=== PATIENT | male | born 1955 | race Caucasian/White ===

== ENCOUNTER 2018-10-07 22:37 | Inpatient (IN) | payer MEDICARE, OTHER ==
[~2018-10-07] VITALS: Ht 170.2 cm; Wt 83.9 kg
[~2018-10-07 22:37] MED LIST: ACET-2619 GT; AMLO5TAB7 GT; ARTOP OP; ASCO500C19 GT; ATRN INH; BISA10SU2 PR; DOXA2TAB32 GT; ENAL20TA19 GT; FERR-18 GT; GLYC2TAB GT; METF500T GT; MULT-153 GT; MVII GT; NA P133E PR; PHEN100C80 GT; REGULAR INSULIN SUBQ; SIMV20TA6 GT; [UNRECOGNIZED DRUG - CODE] GT; [UNRECOGNIZED DRUG - CODE] GT; [UNRECOGNIZED DRUG - CODE] GT
--- NOTE | 2018-10-07 22:37 | NUR ---
BIBA TO ER BED 10
--- NOTE | 2018-10-07 22:37 | NUR ---
Patient being evaluated by physician at bedside.
[2018-10-07] MEDS ORDERED: NACL 0.9% 1,000 ML IV ONE ×2 (22:48)
[2018-10-07] MEDS ORDERED: PIPERACILLIN/TAZOBACTAM 3.375 GM in DEXTROSE 5% 50 ML IV ONE (22:50)
--- NOTE | 2018-10-07 22:50 | NUR ---
RESPONDED TO ER CALL AT 2237 STAT TO BED 10 PT VOMITED AND O2 SATS WERE LOW. PLACED PT ON NONREBREATHER 15LPM. [place] POSITION. SATS AT 100%, PULSE AT 135, RESPIRATIONS AT 26, BREATH SOUNDS COARSE AT UPPER AIRWAY. GOOD EQUAL BILATERAL CHEST RISE. X-RAY HAS BEEN ORDERED. WILL CONTINUE TO MONITOR.
[2018-10-07] MEDS ORDERED: PIPERACILLIN/TAZOBACTAM 3.375 GM VIAL IV ONE (22:53)
[2018-10-07] MEDS ORDERED: ACETAMINOPHEN 650 MG SUPP RC ONE (22:54)
[2018-10-07 22:56] VITALS: BP 74/23
--- NOTE | 2018-10-07 22:56 | NUR ---
63/M BIBA FROM [facility] FOR POSSIBLE SEPTIC SHOCK. PER EMS, PT WAS FOUND WITH ALOC FROM BASELINE AND TACHYCARDIC 45 MINS PRIOR. PT ARRIVES WITH ALOC, GCS 8, RR EVEN AND MODERATELY LABORED, MODERATELY DIAPHORETIC. RT AT BEDSIDE, PT PLACED ON O2 15L NONREBREATHER, SPO2 100%. BP 74/33, HR 133. LUNG SOUNDS CLEAR BL. BS ACTIVE X4, ABD SOFT AND ROUND. PT PLACED ON MONITOR. ER MD AT BEDSIDE.
--- NOTE | 2018-10-07 23:01 | NUR ---
NOTED LARGE POSSIBLE STONE ON URINARY MEATUS, SUCCESSFUL REMOVAL OF STONE WITH FORCEPS, SENT TO LAB. 16 FR MCCALLUM CATH INSERTED SUCCESSFULLY.
[2018-10-07 23:02] LABS: BASOPHILS % (AUTO) 0.1 % (0.0-2.0); EOSINOPHILS % (AUTO) 0.2 % (0.0-4.0); HEMATOCRIT 36.7 % (36-52); HEMOGLOBIN 11.6 g/dL (12.0-18.0); LYMPHOCYTES # (AUTO) 0.6 K/uL (2.0-11.5); LYMPHOCYTES % (AUTO) 20.9 % (20.5-51.1); MEAN CORPUSCULAR HEMOGLOBIN 28 pg (27-31); MEAN CORPUSCULAR HGB CONC 32 g/dL (33-37); MEAN CORPUSCULAR VOLUME 88.9 fL (80-94); MONOCYTES % (AUTO) 0.8 % (1.7-9.3); NEUTROPHILS # (AUTO) 2.3 K/uL (1.8-7.7); PLATELET COUNT (AUTO) 261 K/uL (140-450); RED BLOOD CELL COUNT(AUTO) 4.13 MIL/uL (4.20-6.10); RED CELL DISTRIBUTION WIDTH 17.5 % (11.6-13.7)
[2018-10-07] MEDS ORDERED: VANCOMYCIN 1,000 MG in DEXTROSE 5% 250 ML IV ONE (23:05)
[2018-10-07] MEDS ORDERED: NACL 0.9% 250 ML IV ONE (23:05)
--- NOTE | 2018-10-07 23:06 | NUR ---
PT RESPONSIVE AT THIS TIME, MOANING AND GROANING.
--- NOTE | 2018-10-07 23:10 | NUR ---
PERSISTENT HYPOTENSION DESPITE FLUID BOLUS, ER MD MADE AWARE
[2018-10-07 23:14] LABS: ANION GAP 19.6 (8-16); CARBON DIOXIDE 23.9 mmol/L (21-32); CREATININE 1.8 mg/dL (0.7-1.3); POTASSIUM 4.5 mmol/L (3.5-5.1)
[2018-10-07] MEDS ORDERED: VANCOMYCIN 1,000 MG VIAL ONE (23:15)
[2018-10-07 23:19] LABS: ALBUMIN 2.4 g/dL (3.4-5.0); TOTAL BILIRUBIN 0.3 mg/dL (0.0-1.0)
[2018-10-07 23:20] LABS: PROTHROMBIN TIME 10.5 secs (10.8-13.4)
[2018-10-07] MEDS ORDERED: NOREPINEPHRINE 4 MG/4 ML VIAL IV ONE (23:20)
--- NOTE | 2018-10-07 23:20 | NUR ---
ER MD AT BEDSIDE FOR CENTRAL LINE INSERTION. ER MD SUCCESSFULLY ABLE TO INSERT ON R FEMORAL, 3X LUMEN. LEVOPHED DRIP STARTED ORDERED
[2018-10-07] MEDS ORDERED: LISI2.5T12 GT (23:36)
[2018-10-07] MEDS ORDERED: FURO-572 GT (23:36)
[2018-10-07] MEDS ORDERED: COL100L GT (23:36)
[2018-10-07] MEDS ORDERED: ROB1 GT (23:36)
[2018-10-07] MEDS ORDERED: ATOR40TA GT (23:36)
[2018-10-07] MEDS ORDERED: PHEN125S GT (23:36)
[2018-10-07] MEDS ORDERED: ASPI81CT89 GT (23:36)
[2018-10-07] MEDS ORDERED: CARV3.12 GT (23:36)
[2018-10-07] MEDS ORDERED: ALBU0.0912 IH (23:36)
[2018-10-07] MEDS ORDERED: [UNRECOGNIZED DRUG - CODE] GT (23:36)
[2018-10-07] MEDS ORDERED: CYAN250013 GT (23:36)
[2018-10-08] VITALS (87 sets, daily range): BP systolic 51–137; BP diastolic 23–85
--- NOTE | 2018-10-08 00:25 | NUR ---
500ML BOLUS NS STARTED PER MD
--- NOTE | 2018-10-08 00:25 | NUR ---
PT BP 80/37, HR 114; ER MD MADE AWARE. LEVOPHED DRIP TITRATED TO 10 MCG/MIN. WILL MONITOR.
[2018-10-08 00:32] LABS: APPEARANCE,URINE CLOUDY (CLEAR); BILIRUBIN,URINE NEGATIVE (NEGATIVE); BLOOD, URINE LARGE (NEGATIVE); COLOR,URINE YELLOW (YELLOW); LEUKOCYTE ESTERASE ,URINE 4+ (NEGATIVE); NITRITE, URINE NEGATIVE (NEGATIVE); PH,URINE 7.5 (5.0-9.0); UGLUCOSE NEGATIVE (NEGATIVE)
[2018-10-08 00:33] LABS: RBC,URINE TOO NUMEROUS TO COUN /HPF (0-5); WBC,URINE TOO MANY TO COUNT /HPF (0-5)
--- NOTE | 2018-10-08 00:43 | NUR ---
PT BP 73/35, HR 109; ER MD MADE AWARE. LEVOPHED DRIP TITRATED TO 13 MCG/MIN. WILL MONITOR.
--- NOTE | 2018-10-08 01:05 | NUR ---
PERSISTENT HYPOTENSION, VS NOTED, ER MD MADE AWARE. LEVOPHED DRIP TITRATED TO 15 MCG/MIN. WILL MONITOR.
[2018-10-08] MEDS ORDERED: LORazepam 2 MG/ML VIAL IM/IVP PRN (01:10)
[2018-10-08] MEDS ORDERED: DOCUSATE SODIUM 100 MG GELCAP PO PRN (01:10)
[2018-10-08] MEDS ORDERED: ACETAMINOPHEN 325 MG TAB PO PRN (01:10)
[2018-10-08] MEDS ORDERED: ZOLPIDEM 5 MG TAB PO PRN (01:10)
[2018-10-08] MEDS ORDERED: HYDROcodone/APAP 5/325 MG 1 TAB TAB PO PRN (01:10)
[2018-10-08] MEDS ORDERED: ONDANSETRON 4 MG/2 ML VIAL IM/IVP PRN (01:10)
[2018-10-08] MEDS ORDERED: MORPHINE SULFATE 4 MG/ML SYR IVP PRN (01:10)
[2018-10-08] MEDS ORDERED: VANCOMYCIN PER PHARMACY MC PRN (01:15)
[2018-10-08] MEDS ORDERED: NACL 0.9% 500 ML IV ONE (01:30)
[2018-10-08] MEDS ORDERED: MECLIZINE 25 MG TAB PO PRN (01:30)
[2018-10-08] MEDS: NOREPINEPHRINE 8 MG in DEXTROSE 5% 250 ML IV PRN ×4 (01:33→14:22)
[2018-10-08 01:45] LABS: BARBITURATE, URINE NEG. ng/ml (NEG <=200); BENZODIAZEPINE, URINE NEG. ng/mL (NEG <=200); CANNABINOID, URINE NEG. ng/mL (NEG <=50); COCAINE, URINE NEG. ng/mL (NEG <=300); OPIATE, URINE NEG. ng/mL (NEG <=2000); PHENCYCLIDINE SCREEN,URINE NEG. ng/mL (NEG <=25)
[2018-10-08] MEDS ORDERED: ALBUTEROL SULFATE/IPRATROPIU 3 ML SOL IH PRN (01:45)
[2018-10-08 01:58] LABS: CHOL/HDL RATIO 2.1 (1-4.5); MAGNESIUM 1.8 mg/dL (1.8-2.4); PHOSPHORUS 3.5 mg/dL (2.5-4.9); THYROID STIMULATING HORMONE 5.38 uIU/mL (0.34-3.74)
--- NOTE | 2018-10-08 02:00 | NUR ---
ER MD AND RT AT BEDSIDE FOR ABG. VS NOTED, PT REMAINS HYPOTENSIVE DESPITE FLUID BOLUS, LEVOPHED TITRATED TO 20MCG/MIN.
[2018-10-08] MEDS ORDERED: DEXTROSE 50% 50 ML SYR IVP PRN (02:15)
--- NOTE | 2018-10-08 02:23 | NUR ---
Patient will be admitted to care of DR. BAHEAN. Admited to ICU. Will go to room 2. Belongings list completed. Report to WENDIE FUENTES.
--- NOTE | 2018-10-08 02:30 | NUR ---
PT ARRIVED IN THE UNIT AT 0220 VIA GURNEY. PT EYES ARE OPEN. FLACC 0. SR TO ST ON MONITOR. RESPONDS TO NAME AND ALSO TO PAIN. AFEBRILE. LUNG SOUNDS CLEAR. PT ON OXYGEN AT 2L/MIN VIA NC. S1+S2 HEARD. PULSES ARE PALPABLE IN ALL EXTREMITIES. RECEIVED PT ON LEVOPHED AT 20MCG. ABDOMEN ROUND, SOFT AND NONDISTENDED. BS ACTIVE. PT HAS GTUBE IN PLACE. PT HAS RIGHT FEMORAL CENTRAL LINE. THERE WAS STILL BLEEDING NOTED ON SITE AND MD AWARE. PT ALSO HAS LEFT WRIST PERIPHERAL IV ACCESS. MCCALLUM CATHETER IN PLACE AND DRAINING CLEAR, YELLOW URINE. WILL CONTINUE TO MONITOR BLOOD PRESSURE AND TITRATE INDICATED. MRSA SPECIMEN COLLECTED.
[2018-10-08] MEDS: NACL 0.9% 1,000 ML IV SCH ×4 (03:16→17:39)
[2018-10-08] MEDS ORDERED: NOREPINEPHRINE 4 MG/4 ML VIAL IV ONE (04:17)
--- NOTE | 2018-10-08 04:50 | NUR ---
DR. CHACON IN THE UNIT AND AWARE OF CURRENT STATUS OF PT. BP STILL LOW AT THIS TIME AND STILL MONITORING. PT AROUSABLE TO NAME AND PAIN. NO OTHER CHANGE IN CONDITION AT THIS TIME.
[2018-10-08 04:53] LABS: HEMATOCRIT 29.1 % (36-52); HEMOGLOBIN 9.4 g/dL (12.0-18.0); MEAN CORPUSCULAR HEMOGLOBIN 28 pg (27-31); MEAN CORPUSCULAR HGB CONC 32 g/dL (33-37); MEAN CORPUSCULAR VOLUME 87.8 fL (80-94); PLATELET COUNT (AUTO) 169 K/uL (140-450); RED BLOOD CELL COUNT(AUTO) 3.31 MIL/uL (4.20-6.10); RED CELL DISTRIBUTION WIDTH 16.8 % (11.6-13.7); WHITE BLOOD COUNT (AUTO) 16.1 K/uL (4.8-10.8)
[2018-10-08 05:10] LABS: ANION GAP 14.9 (8-16); CREATININE 1.6 mg/dL (0.7-1.3)
[2018-10-08 05:13] LABS: MAGNESIUM 1.5 mg/dL (1.8-2.4); PHOSPHORUS 2.6 mg/dL (2.5-4.9)
--- NOTE | 2018-10-08 05:21 | NUR ---
INFORMED DR. CHACON OF THE CURRENT BP READING AND WILL FOLLOW-UP WITH ANY NEW ORDER.
--- NOTE | 2018-10-08 05:25 | NUR ---
CALLED PT'S , IZA FAITH, INFORMED HER THAT PT IS IN THE ICU. DR. CHACON CURRENTLY SPEAKING WITH THE PT'S .
[2018-10-08] MEDS ORDERED: PIPERACILLIN/TAZOBACTAM 3.375 GM VIAL IV ONE (05:32)
[2018-10-08] MEDS ORDERED: NACL 0.9% 1,000 ML IV ONE (05:35)
[2018-10-08 05:49] LABS: POTASSIUM 2.9 mmol/L (3.5-5.1)
[2018-10-08] MEDS ORDERED: POTASSIUM CHLORIDE 40 MEQ, LIDOCAINE MPF 1% - 5 mL VIAL 25 MG in NACL 0.9% 250 ML IV SCH ×2 (05:50→08:00)
[2018-10-08] MEDS ORDERED: PIPERACILLIN/TAZOBACTAM 2.25 GM in DEXTROSE 5% 50 ML IV SCH (06:00)
[2018-10-08] MEDS ORDERED: VASOPRESSIN 20 UNITS/ML VIAL ONE (06:13)
[2018-10-08] MEDS: PIPER/TAZO 3.375GM/D5W PREMIX 50 ML IV SCH ×3 (06:15→17:06)
[2018-10-08] MEDS: VASOPRESSIN 20 UNITS in NACL 0.9% 250 ML IV SCH ×3 (06:15→22:58)
--- NOTE | 2018-10-08 06:20 | NUR ---
DR. CHAVES AT BEDSIDE WITH DR. GÓMEZ TO SEE PT.
[2018-10-08 06:33] LABS: LYMPHOCYTES % (MANUAL) 2 % (20-46); METAMYELOCYTES % 2 % (0-0); MONOCYTES % (MANUAL) 3 % (5-12)
[2018-10-08] MEDS: ALBUTEROL SULFATE/IPRATROPIU 3 ML SOL IH SCH ×3 (06:52→19:18)
--- NOTE | 2018-10-08 07:26 | NUR ---
REPORT GIVEN TO MORNING RN, CHANCE, FOR CONTINUITY OF CARE. BP STILL NOT STABLE AT THIS TIME.
--- NOTE | 2018-10-08 07:27 | NUR ---
RECEIVED PT REPORT FROM SCRAP CHARGER RN AT BEDSIDE, PT IS AWAKE WITH EYES OPEN, APHASIC, NOT ABLE TO FOLLOW COMMANDS, VSS, FLACC 0. NO S/S OF DISTRESS, CLEAR LUNG SOUNDS PEGGY. ON OXYGEN AT 2L/MIN VIA NC, O2 SAT 99%, ST ON WOMEN NURSE, SOFT ABDOMEN WITH ACTIVE BOWEL SOUNDS, GT IN PLACE, PATIENT WITH 0 RESIDUAL, NPO EXCEPT MEDS AT THIS TIME, INCONTINENT, MCCALLUM CATHETER IN PLACE WITH CLEAR YELLOW URINE DRAINING VIA GRAVITY, SKIN IS COOL, DRY IN TOUCH, NO OPEN WOUND NOTED, SEVERE WEAKNESS NOTED, UNABLE TO MOVE ALL EXTREMITIES, CENTRAL LINE TO RIGHT FEMORAL, TLC, PATIENT, RUNNING LEVOPHED AT 30MCG/MIN, VASOPRESSIN AT 0.03 UNITS/MIN, AND NS AT 125ML/HR. IV SITE TO LEFT WRIST 20GA, PATENT AND SL. HOB ELEVATED 30 DEGREES, POSITION CHANGED FOR OFF LOAD PRESSURE, SAFETY MEASURE IN PLACE, WILL CONTINUE TO MONITOR. Addendum: 10/08/18 at 1013 by Oswald Salas RN RHONCHI LUNG SOUNDS, NOT CLEAR.
[2018-10-08] MEDS: BLOOD GLUCOSE MONITORING 1 DEV DEV FS SCH ×4 (07:46→21:00)
[2018-10-08] MEDS: INSULIN LISPRO SLIDING SCALE 100 UNITS/ML VIAL SUBQ PRN ×4 (07:52→22:00)
[2018-10-08] MEDS ORDERED: CARVEDILOL 3.125 MG TAB GT SCH (08:00)
[2018-10-08] MEDS: MULTIVITAMIN/MINERALS 15 ML UDBTL GT SCH (08:26)
[2018-10-08] MEDS: LACTOBACILLUS RHAMNOSUS GG 1 EACH CAP PO SCH (08:27)
[2018-10-08] MEDS: PANTOPRAZOLE 40 MG INJ VIAL IVP SCH ×2 (08:27→21:31)
[2018-10-08] MEDS: PHENYTOIN 100 MG/4 ML UDC GT SCH ×2 (08:27→21:26)
[2018-10-08] MEDS: ASCORBIC ACID 500 MG/5 ML ORASYR GT SCH (08:27)
[2018-10-08] MEDS: FERROUS SULFATE 300 MG/5 ML UDC GT SCH (08:27)
[2018-10-08] MEDS: CHOLECALCIFEROL 1,000 IU TAB GT SCH (08:27)
--- NOTE | 2018-10-08 08:27 | NUR ---
PATIENT HAS BEEN SCREENED AND CATEGORIZED HIGH NUTRITION RISK. PATIENT WILL BE SEEN WITHIN 1-2 DAYS OF ADMISSION. 10/08/18-10/09/[address]
[2018-10-08] MEDS: CYANOCOBALAMIN 1,000 MCG TAB GT SCH (08:28)
[2018-10-08] MEDS: GLYCOPYRROLATE 1 MG TAB GT SCH ×3 (08:28→17:06)
--- NOTE | 2018-10-08 08:30 | NUR ---
PT'S BP 83/34, MAX WITH LEVOPHED AND VASOPRESSIN AT THIS TIME, DR. CHAVES MADE AWARE.
--- NOTE | 2018-10-08 08:39 | NUR ---
lasix and lisinopril held at this time per dr. rios due to pt's BP low.
--- NOTE | 2018-10-08 08:45 | NUR ---
P.T. NOTES HOLD P.T. EVAL AT THIS TIME PER 2 RN'S (CHRIS) DUE TO PATIENT IS NOT MEDICALLY STABLE AT THIS TIME. WE'LL FOLLOW UP WHEN PATIENT IS MORE APPROPRIATE FOR P.T. SERVICES.
[2018-10-08] MEDS ORDERED: NACL 0.9% 500 ML IV SCH ×2 (08:50→09:25)
[2018-10-08] MEDS ORDERED: NON-FORMULARY ITEM (Ascorbic Acid (Vitamin C) 500 MG) GT SCH (09:00)
[2018-10-08] MEDS ORDERED: ASPIRIN 81 MG TAB.CHEW GT SCH (09:00)
[2018-10-08] MEDS ORDERED: [UNRECOGNIZED DRUG - OTHER] GT SCH (09:00)
[2018-10-08] MEDS ORDERED: LISINOPRIL 5 MG TAB GT SCH (09:00)
[2018-10-08] MEDS ORDERED: FUROSEMIDE 20 MG TAB GT SCH (09:00)
[2018-10-08] MEDS ORDERED: MULTIVITAMIN GT SCH (09:00)
[2018-10-08] MEDS ORDERED: FERROUS SULFATE GT SCH (09:00)
[2018-10-08] MEDS ORDERED: CYANOCOBALAMIN 1000 MCG GT SCH (09:00)
[2018-10-08] MEDS ORDERED: PHENYTOIN GT SCH (09:00)
[2018-10-08] MEDS ORDERED: MINERALS GT SCH (09:00)
[2018-10-08] MEDS ORDERED: CHOLECALCIFEROL 1000 UNIT GT SCH (09:00)
[2018-10-08] MEDS ORDERED: MAG SULF 2000 MG/WATER PREMIX 50 ML IV ONE (09:20)
--- NOTE | 2018-10-08 10:00 | NUR ---
BP IS STILL LOW, BOLUS GIVEN ORDERED, PT IS OPEN EYES, NUMBING WORDS, NO S/S OF DISTRESS, POSITION CHANGED FOR OFF LOAD PRESSURE.
--- NOTE | 2018-10-08 10:45 | NUR ---
DR. LUJAN CAME IN TO SEE PT AT BEDSIDE, WILL FOLLOW UP WITH NEW ORDERS.
[2018-10-08] MEDS: MAGNESIUM SULFATE 1GM in DEXTROSE 5% 100 ML PREMIX IV SCH ×2 (11:01→11:58)
[2018-10-08] MEDS ORDERED: levETIRAcetam 1,000 MG in NACL 0.9% 100 ML IV ONE (11:15)
--- NOTE | 2018-10-08 11:15 | NUR ---
ULTRASOUND AT BEDSIDE.
[2018-10-08] MEDS ORDERED: PHENYLEPHRINE 10 MG in NACL 0.9% 250 ML IV PRN (11:35)
[2018-10-08] MEDS: MIDODRINE 5 MG TAB PEG SCH ×3 (12:06→23:56)
--- NOTE | 2018-10-08 12:18 | NUR ---
ECHO DONE AT BEDSIDE.
[2018-10-08] MEDS ORDERED: HYDROCORTISONE NA SUCC 100 MG/2 ML VIAL IV SCH ×2 (13:00→20:40)
--- NOTE | 2018-10-08 13:54 | NUR ---
PROVIDED DR. CHAVES WITH [employer] SCHEDULE CHECKER PHONE, SCHEDULE CHECKER NAME IS JENNIFER #[id number]. DR. CHAVES IS SPEAKING WITH PATIENT'S FAMILY
--- NOTE | 2018-10-08 13:55 | NUR ---
STARTED TUBE FEEDING WITH VITAL AF 1.2F AT 15ML/HR, INCREASE 10ML Q4HR IF TOLERATED WELL TO REACH THE GOAL 75ML/HR PER DR. CHAVEZ.
--- NOTE | 2018-10-08 14:00 | NUR ---
DR. SINGER SPOKE TO PT'S AT BEDSIDE, PT'S STILL WANT PT ON FULL CODE AT THIS TIME.
[2018-10-08] MEDS: PHENYLEPHRINE 40 MG in NACL 0.9% 250 ML IV PRN ×3 (14:28→23:52)
--- NOTE | 2018-10-08 14:34 | NUR ---
10/08/18 RD INITIAL ASSESSMENT COMPLETED PLEASE REFER TO NUTRITION ASSESSMENT UNDER CARE ACTIVITY FOR ESTIMATED NUTRITIONAL NEEDS. 1. RECOMMEND CONTINUE NPO DIET, UNTIL MEDICALLY APPROPRIATE TO BEGIN NUTRITION 2. WHEN/IF PT MEDICALLY STABLE TO BEGIN NUTRITION, CONSIDER ADVANCE DIET TOLERATE TO VITAL AF 1.2 @ 75 ML/HR STARTING AT 15 ML AND ADVANCING 20ML/HR Q3H - THIS WILL PROVIDE 1800ML, 2100 KCAL, 135 G PRO, 1460 ML WATER. THIS WILL MEET 100% OF KCAL/PROTEIN NEEDS. 3. RECOMMEND FREE WATER FLUSH 160ML/Q6H 4. RD TO FOLLOW-UP 2-3 DAYS, HIGH RISK TERRANCE TEE RD
--- NOTE | 2018-10-08 14:36 | NUR ---
Pop[employer] Vendor Note: Avelino Gomez from [facility] , patient is on a 7 day bed hold and is one their manager terminal patients (shelter care). I met with patient's Olinda at bedside. Olinda speaks Ivorian. Per Olinda, she would like patient to return to [facility] upon discharge. She stated patient has been living at [facility] for about 6 years. She reported she has had good communication with attending MD and nursing staff at our hospital. Olinda stated she does not have any questions or concerns at this time.
[2018-10-08 14:46] LABS: ANION GAP 16.2 (8-16); CARBON DIOXIDE 19.9 mmol/L (21-32); CREATININE 1.5 mg/dL (0.7-1.3); POTASSIUM 4.1 mmol/L (3.5-5.1)
--- NOTE | 2018-10-08 15:20 | NUR ---
CRITICAL LAB REPORT LACTIC ACID 6.3 INCREASED, REPORT TO DR. AGOSTO, DR. AGOSTO CAME IN TO SEE PT, AND SPOKE TO PHARMACY IT IS OK TO GIVE VANCOMYCIN NOW FOR 1800 DOSE.
--- NOTE | 2018-10-08 15:42 | NUR ---
RECEIVED A CALL THIS MORNING FROM GARRICK FROM [facility]. SHE IS THE CM. HER PHONE IS [phone]. FAX IS [phone]. THEY WILL CHECK TO SEE IF THIS PATIENT CAN BE TRANSFERED TO [facility].
--- NOTE | 2018-10-08 17:33 | NUR ---
PT IS CONGESTED, RALES LUNG SOUNDS PEGGY, DR. AGOSTO NOTIFIED, HE WILL COME TO SEE PT.
--- NOTE | 2018-10-08 17:38 | NUR ---
LAB CALLED BL. CULTURE PRELIMINARY FOUND GRAM NEGATIVE WEI. DR. ELRMA NOTIFIED. NO ORDER CHANGED.
--- NOTE | 2018-10-08 17:40 | NUR ---
DR. AGOSTO CAME IN, ASSESSED THE PT, WILL FOLLOW UP WITH ORDERS.
[2018-10-08] MEDS ORDERED: VANCOMYCIN HCL 750 MG in DEXTROSE 5% 250 ML IV SCH (18:00)
--- NOTE | 2018-10-08 18:00 | NUR ---
PT IS VERY CONGESTED, LABORED BREATHING, ABG RESULT CAME BACK DR. CHACON. MADE AWARE.
[2018-10-08] MEDS ORDERED: ETOMIDATE 20 MG/10 ML VIAL IVP SCH ×2 (18:38→21:00)
--- NOTE | 2018-10-08 18:40 | NUR ---
ER CAME IN, DR. CHACON AT BEDSIDE, PUT PT ON BIPAP WITH FIO2 50, I/E 16/8, R 12 AT THIS TIME. O2 SAT 100%.
--- NOTE | 2018-10-08 18:51 | NUR ---
1840 PLACED PATIENT ON BIPAP IPAP18 EPAP 6 RR 12 FIO2 50%. PT WAS IN RESPIRATORY DISTRESS. ABG PENDING
[2018-10-08] MEDS: NOREPINEPHRINE 16 MG in DEXTROSE 5% 250 ML IV PRN (19:07)
--- NOTE | 2018-10-08 19:22 | NUR ---
REPORT GIVEN TO DATA WAREHOUSE SPECIALIST NURSE FOR CONTINUE OF CARE.
[2018-10-08] MEDS ORDERED: AMIKACIN PER PHARMACY MC PRN (19:25)
--- NOTE | 2018-10-08 19:30 | NUR ---
RECEIVED REPORT FROM DAY SHIFT FOR CONTINUITY OF CARE.
--- NOTE | 2018-10-08 19:35 | NUR ---
DR. SOLER AND RT @ BEDSIDE.
--- NOTE | 2018-10-08 19:40 | NUR ---
@ BEDSIDE, EXPLAINED PT GUARDED CONDITION TO AND SUGGESTED TO THAT THE PT WOULD NEED TO BE INTUBATED TONIGHT DUE TO HIS RESPIRATORY DISTRESS. AGREEABLE, PT APPEARS OBTUNDED AND IS UNWARE OF SURROUNDINGS @ THIS TIME. WILL CONTINUE TO OBSERVE.
[2018-10-08] MEDS ORDERED: EPINEPHrine 1:1000 1 MG in DEXTROSE 5% 250 ML IV SCH (19:45)
--- NOTE | 2018-10-08 19:45 | NUR ---
PT APPEARS AWAKE, EYES OPEN, PERRL+3 SLUGGISH REACTION. PT UNABLE TO MOVE L ARM AND BILATERAL LOWER EXTREMITIES., R ARM ABLE TO MOVE. PT UNABLE TO FOLLOW DIRECTIONS @ THIS TIME. PT ATTACHED TO BIPAP @ 50% FIO2. RHONCHI/DIMINISHED BREATH SOUNDS AUSCULTATED THROUGHOUT. NSR 80S NOTED. +1-2 NON PITTING GENERALIZED EDEMA NOTED, PT HYPOTENSIVE 80-90 SBP. ABD SOFT NON DISTENDED. PEG TUBE IN PLACE. AUSCULTATED FOR PLACEMENT, GT FEEDINGS RUNNING, PATENT. MCCALLUM CATH IN PLACE DARK CONCENTRATED URINE NOTED. LOW URINE OUTPUT FOR DAYSHIFT, DR SOLER AWARE. SKIN INTACT, BLANCHABLE REDNESS TO BUTTOCKS AREA NOTED. CENTRAL LINE R FEMORAL TRIPLE LUMEN IV NOTED, VASOPRESSIN @ 0.04 UNITS/MIN, LEVOPHED 30 MCG/MIN, NEOSYNEPHRINE @ 150 MCG/MIN, 0.9 NS 150 ML/HR. IV PATENT. WILL CONTINUE TO OBSERVE.
--- NOTE | 2018-10-08 19:55 | NUR ---
ER , DR TOBIN @ BEDSIDE. PT AND FAMILY EXPLAINED ABOUT UPCOMING INTUBATION. RTs @ BEDSIDE. RSI KIT @ BEDSIDE. 1954: ETOMADATE 20 MG IVP GIVEN. SUCCINYLCHOLINE 75 MG IVP GIVEN. PT DIFFICULT TO INTUBATE PER MD, HERLINDA REQUESTED AND GLIDESCOPE. PT OXYGENATING 98% SPO2, VIA BVM. HR 90 NSR, BP 98/62 RR 14. 2004: ETOMADATE 10 MG IVP GIVEN. MD INSERTED 7.0 MM ET TUBE 25CM @ LIP. RT PLACED PT ON MECH. VENT, SETTINGS PER MD ORDER. NO S/S OF ACUTE DISTRESS NOTED. PT TOLERATED PROCEDURE. STAT CXR ORDERED. PT REPOSITIONED, SUCTION @ BEDSIDE. WILL CONTINUE TO OBSERVE.
[2018-10-08] MEDS ORDERED: SUCCINYLCHOLINE CHLORIDE 200 MG/10 ML VIAL IVP SCH (20:00)
--- NOTE | 2018-10-08 20:15 | NUR ---
UPDATED DR LUJAN ABOUT PT HYPOTENSION WITH MAX 3 PRESSORS, EPI DRIP ORDERED. WANTED STAT SOLUCORTEF TO BE GIVEN. WILL CONTINUE TO MONITOR.
--- NOTE | 2018-10-08 20:38 | NUR ---
PT BITING ET TUBE, FACIAL GRIMACING NOTED. HR 106 BP 107/62 SPO2 96%. SUCTIONED PT THICK CREAMY SECRETION NOTED. PT GIVEN PRN MORPHINE FOR PAIN.
--- NOTE | 2018-10-08 20:40 | NUR ---
DR LUJAN @ BEDSIDE.
[2018-10-08] MEDS ORDERED: levETIRAcetam 1,000 MG in NACL 0.9% 100 ML IV SCH (21:00)
[2018-10-08] MEDS ORDERED: AMIKACIN 500 MG in DEXTROSE 5% 100 ML IV SCH (21:00)
--- NOTE | 2018-10-08 21:20 | NUR ---
CALLED AFTER HOURS PHARMACY AND SPOKE WITH OBEY REGARDING COMPATIBILITY OF MEDICATIONS. ACCORDING TO PHARMACISTS, OKAY TO RUN LEVOPHED AND EPINEPHRINE TOGETHER, AND THEN VASOPRESSIN AND NEOSYNEPHRINE.
[2018-10-08] MEDS: ATORVASTATIN 20 MG TAB GT SCH (21:26)
[2018-10-08] MEDS: DOCUSATE 100 MG/10 ML UDC GT SCH (21:26)
--- NOTE | 2018-10-08 21:50 | NUR ---
CALLED DR MCCAIN WITH LATEST ABG RESULTS, ORDERED TO INCREASE RR TO 18
[2018-10-08] MEDS ORDERED: MEROPENEM 1,000 MG in NACL 0.9% 100 ML IV SCH (22:00)
[2018-10-08] MEDS ORDERED: AMIKACIN 500 MG/2 ML VIAL IV ONE (22:03)
[2018-10-08] MEDS ORDERED: MEROPENEM 1,000 MG VIAL IV ONE (22:04)
[2018-10-08] MEDS ORDERED: SODIUM BICARBONATE 8.4% PFS 50 MEQ/50 ML SYR IVP ONE (22:56)
[2018-10-08] MEDS: SODIUM BICARBONATE IV SCH (23:10)
[2018-10-08] MEDS: DEXTROSE 5% IV SCH (23:10)
--- NOTE | 2018-10-08 23:40 | NUR ---
EPI DRIP STARTED, PT CONTINUES TO BE HYPOTENSIVE. MAP<65 DESPITE VASPORESSIN @ .04 UNITS/MIN, LEVOPHED 30 MCG/MIN, NEOSYNEPHRINE @ 150 MCG/MIN. WILL CONTINUE TO OBSERVE.
[2018-10-09] VITALS (100 sets, daily range): BP systolic 88–144; BP diastolic 42–96
--- NOTE | 2018-10-09 | NUR ---
VAP ORAL CARE DONE. PT TURNED AND REPOSITIONED. WILL CONTINUE TO OBSERVE.
--- NOTE | 2018-10-09 | NUR ---
DR SOLER MADE AWARE OF HGB 7.2 PLATELET 64, TO PUT ORDERS FOR TYPE/CROSSMATCH FOR X1 UNIT [facility]
--- NOTE | 2018-10-09 01:25 | NUR ---
NOTIFIED DR SOLER ABOUT DARK BROWN REDDISH SECRETIONS FROM ORAL AREA. ETT SUCTIONED, CLEAR SECRETIONS NOTED. WILL CONTINUE TO OBSERVE. PT AROUSABLE, MAP<65 BP 118/61 HR 83 100% SPO2 ON 50% FIO2, WILL CONTINUE TO OBSERVE.
[2018-10-09] MEDS: MORPHINE SULFATE 4 MG/ML SYR IVP PRN ×2 (02:00→21:48)
[2018-10-09] MEDS: PHENYLEPHRINE 40 MG in NACL 0.9% 250 ML IV PRN ×2 (04:07→10:38)
[2018-10-09] MEDS: HYDROCORTISONE NA SUCC 100 MG/2 ML VIAL IV SCH ×4 (04:10→21:47)
--- NOTE | 2018-10-09 04:15 | NUR ---
VAP ORAL CARE PER PROTOCOL. BED BATH GIVEN, LINEN CHANGED. PT TURNED AND REPOSITIONED, PT TOLERATED WELL. VSS. NO ACUTE DISTRESS NOTED. WILL CONTINUE TO OBSERVE.
--- NOTE | 2018-10-09 06:00 | NUR ---
NOTIFIED DR. CHAVES OF EPISODES OF N/V, HELD TUBE FEEDING DUE TO HIGH RESIDUALS. STATED SHE WILL ORDER TO HOLD FEEDING FOR NOW.
[2018-10-09 06:33] LABS: HEMATOCRIT 23.3 % (36-52); MEAN CORPUSCULAR HEMOGLOBIN 29 pg (27-31); MEAN CORPUSCULAR HGB CONC 32 g/dL (33-37); MEAN CORPUSCULAR VOLUME 88.4 fL (80-94); PLATELET COUNT (AUTO) 106 K/uL (140-450); RED BLOOD CELL COUNT(AUTO) 2.63 MIL/uL (4.20-6.10); WHITE BLOOD COUNT (AUTO) 23.8 K/uL (4.8-10.8)
[2018-10-09] MEDS: ALBUTEROL SULFATE/IPRATROPIU 3 ML SOL IH SCH ×3 (06:37→18:50)
[2018-10-09 06:38] LABS: ANION GAP 14.8 (8-16); CARBON DIOXIDE 20.3 mmol/L (21-32); CREATININE 1.3 mg/dL (0.7-1.3); POTASSIUM 3.1 mmol/L (3.5-5.1)
[2018-10-09 06:39] LABS: MAGNESIUM 1.8 mg/dL (1.8-2.4); PHOSPHORUS 2.6 mg/dL (2.5-4.9)
[2018-10-09] MEDS: BLOOD GLUCOSE MONITORING 1 DEV DEV FS SCH ×4 (06:47→21:46)
[2018-10-09 06:56] LABS: HEMOGLOBIN 7.5 g/dL (12.0-18.0)
[2018-10-09 06:57] LABS: EOSINOPHILS % (MANUAL) 3 % (0-4); LYMPHOCYTES % (MANUAL) 4 % (20-46); MONOCYTES % (MANUAL) 8 % (5-12)
[2018-10-09] MEDS: MIDODRINE 5 MG TAB PEG SCH ×3 (07:03→17:21)
--- NOTE | 2018-10-09 07:29 | NUR ---
REPORT GIVEN TO DAY SHIFT FOR CONTINUITY OF CARE.
--- NOTE | 2018-10-09 07:30 | NUR ---
RECEIVED PT REPORT FROM FRONTEND ENGINEER RN AT BEDSIDE, PT IS LETHARGIC, APHASIC, NOT ABLE TO FOLLOW COMMANDS, ETT TO VENT WITH SETTING FIO2 40, VT 600, R 18, PEEP 5. NO S/S OF DISTRESS, CRACKLES LUNG SOUNDS PEGGY. O2 SAT 100%, SR ON MEMS INTEGRATION ENGINEER, SOFT ABDOMEN WITH ACTIVE BOWEL SOUNDS, GT IN PLACE, PATIENT WITH 15ML RESIDUAL, NPO EXCEPT MEDS AT THIS TIME, INCONTINENT, MCCALLUM CATHETER IN PLACE WITH CLEAR YELLOW URINE DRAINING VIA GRAVITY, SKIN IS INTACT, WARM AND DRY IN TOUCH, NONPITTING EDEMA NOTED TO PEGGY ARM, UNABLE TO MOVE ALL EXTREMITIES, SEVERE WEAKNESS NOTED, CENTRAL LINE TO RIGHT FEMORAL, TLC, PATIENT, RUNNING LEVOPHED AT 28 MCG/MIN, NOREPINEPHRINES AT 150MCG/MIN, AND D5 BICAB AT 100 ML/HR. VSS, FLACC 0, HOB ELEVATED 30 DEGREES, ORAL CARE PROVIDED, POSITION CHANGED FOR OFF LOAD PRESSURE, SAFETY MEASURE IN PLACE, WILL CONTINUE TO MONITOR.
--- NOTE | 2018-10-09 08:40 | NUR ---
PT IS OFF UNIT FOR CT WITH GENERAL FARM HAND, RT, AND RN.
--- NOTE | 2018-10-09 09:00 | NUR ---
P.T. NOTES PER RN (ISABEL), PATIENT STILL VERY LETHARGIC AND NOT APPROPRIATE FOR P.T. EVAL AT THIS TIME. PLAN: WE'LL FOLLOW UP AGAIN ON THE NEXT SCHEDULED VISIT IF HE REMAINS IN THIS HOSPITAL.
--- NOTE | 2018-10-09 09:10 | NUR ---
PATIENT WENT FOR CT AT 8.40AM AND COME BACK IN ICU AT 9.40AM. PT PLACE BACK ON VENTILATOR SETTING.ET TUBE IS SECURED. Addendum: 10/09/18 at 1032 by Stanley Arshad RT CORRECTION : PT BACK IN ICU AT 9.10 AM.
--- NOTE | 2018-10-09 09:10 | NUR ---
PT IS BACK UNIT.
[2018-10-09] MEDS: GLYCOPYRROLATE 1 MG TAB GT SCH ×3 (09:23→17:20)
[2018-10-09] MEDS: CYANOCOBALAMIN 1,000 MCG TAB GT SCH (09:23)
[2018-10-09] MEDS: DEXTROSE 5% IV SCH (09:23)
[2018-10-09] MEDS: SODIUM BICARBONATE IV SCH (09:23)
[2018-10-09] MEDS: LACTOBACILLUS RHAMNOSUS GG 1 EACH CAP PO SCH (09:23)
[2018-10-09] MEDS: PHENYTOIN 100 MG/4 ML UDC GT SCH ×2 (09:24→21:46)
[2018-10-09] MEDS: CHOLECALCIFEROL 1,000 IU TAB GT SCH (09:24)
[2018-10-09] MEDS: PANTOPRAZOLE 40 MG INJ VIAL IVP SCH ×2 (09:24→21:47)
[2018-10-09] MEDS: MULTIVITAMIN/MINERALS 15 ML UDBTL GT SCH (09:25)
[2018-10-09] MEDS: MEROPENEM 1,000 MG in NACL 0.9% 100 ML IV SCH ×2 (09:25→21:47)
[2018-10-09] MEDS: ASCORBIC ACID 500 MG/5 ML ORASYR GT SCH (09:25)
[2018-10-09] MEDS: FERROUS SULFATE 300 MG/5 ML UDC GT SCH (09:25)
--- NOTE | 2018-10-09 10:00 | NUR ---
NO S/S OF DISTRESS, VSS, FLACC 0, POSITION CHANGED FOR OFFLOAD PRESSURE.
[2018-10-09] MEDS ORDERED: POTASSIUM CHLORIDE 40 MEQ, LIDOCAINE 1% 25 MG in NACL 0.9% 250 ML IV SCH (10:30)
[2018-10-09] MEDS ORDERED: MAG SULF 2000 MG/WATER PREMIX 50 ML IV ONE (11:00)
--- NOTE | 2018-10-09 11:06 | NUR ---
DR. LUJAN CAME IN TO SEE PT AT BEDSIDE, WILL FOLLOW UP WITH NEW ORDERS.
--- NOTE | 2018-10-09 12:00 | NUR ---
PT OPEN EYES, UNABLE TO FOLLOW COMMANDS, NO S/S OF DISTRESS, VSS, FLACC 0, ORAL CARE PROVIDED, POSITION CHANGED FOR OFF LOAD PRESSURE.
[2018-10-09] MEDS: INSULIN LISPRO SLIDING SCALE 100 UNITS/ML VIAL SUBQ PRN ×3 (12:08→21:49)
[2018-10-09 12:14] LABS: FOLIC ACID 17.4 ng/mL (>3.0)
--- NOTE | 2018-10-09 14:00 | NUR ---
PT IS RESTING IN BED, NO S/S OF DISTRESS, VSS, FLACC 0, POSITION CHANGED FOR OFF LOAD PRESSURE.
[2018-10-09 14:28] LABS: HEMATOCRIT 26.1 % (36-52); HEMOGLOBIN 8.5 g/dL (12.0-18.0); MEAN CORPUSCULAR HEMOGLOBIN 28 pg (27-31); MEAN CORPUSCULAR HGB CONC 32 g/dL (33-37); MEAN CORPUSCULAR VOLUME 86.9 fL (80-94); PLATELET COUNT (AUTO) 74 K/uL (140-450); RED BLOOD CELL COUNT(AUTO) 3.01 MIL/uL (4.20-6.10); RED CELL DISTRIBUTION WIDTH 16.7 % (11.6-13.7); WHITE BLOOD COUNT (AUTO) 27.7 K/uL (4.8-10.8)
[2018-10-09 15:12] LABS: EOSINOPHILS % (MANUAL) 2 % (0-4); LYMPHOCYTES % (MANUAL) 5 % (20-46); METAMYELOCYTES % 4 % (0-0); MONOCYTES % (MANUAL) 9 % (5-12)
[2018-10-09] MEDS: MAGNESIUM SULFATE 1GM in DEXTROSE 5% 100 ML PREMIX IV SCH ×2 (15:17→16:26)
--- NOTE | 2018-10-09 16:00 | NUR ---
PT IS RESTING IN BED WITH EYES OPEN, ABLE TO USE RIGHT HAND RUBBING HIS EYES, MORE ALERT, ABLE TO FOLLOW SIMPLE COMMANDS. ORAL CARE AND PM CARE PROVIDED, BLEEDING NOTED TO GT, WITHDRAWED 60ML OF BURGUNDY COLORED EMESIS, DRAINAGE BAG PLACED VIA GRAVITY, DR. CHAVES MADE AWARE. POSITION CHANGED FOR OFF LOAD PRESSURE.
[2018-10-09] MEDS: NOREPINEPHRINE 16 MG in DEXTROSE 5% 250 ML IV PRN (16:34)
--- NOTE | 2018-10-09 17:38 | NUR ---
MONITORING PT ON VENT WITH SETTINGS CHARTED BREATH SOUNDS COURSE BILAT SXN PT WITH MIN AMT OFF WHITE SECS VENT PLUGGED INTO RED OUTLET AMBU BAG AT BEDSIDE
[2018-10-09] MEDS ORDERED: VANCOMYCIN PER PHARMACY MC PRN (17:55)
--- NOTE | 2018-10-09 18:00 | NUR ---
NO CHANGE OF CONDITION AT THIS TIME, VSS, FLACC 0, POSITION CHANGED FOR OFF LOAD PRESSURE.
--- NOTE | 2018-10-09 19:15 | NUR ---
REPORT GIVEN TO CAT TENDER NURSE FOR CONTINUE OF CARE. PT IS IN STABLE CONDITION AT THIS TIME.
--- NOTE | 2018-10-09 19:30 | NUR ---
RECEIVED REPORT FROM DAY SHIFT NO ACUTE DISTRESS NOTED.
--- NOTE | 2018-10-09 19:40 | NUR ---
PT HAS EYES OPEN PERRL, + 3SLUGGISH @ THIS TIME. PT ABLE TO MOVE R HAND AGAINST GRAVITY, LEFT UPPER EXTREMITY AND BILATERAL LOWER EXTREMITY ARE RIGID AND CANNOT MOVE. S1 S2 HEARD, NSR @ THIS TIME. PT ON LEVOPHED DRIP FOR BP SUPPORT CURRENT BP 130/81 HR 90S, +2 EDEMA GENERALIZED THROUGHOUT BODY. RHONCHI BREATH SOUNDS. 7.0 ETT TO VENT 25 CM @ LI. CURRENT VENT SETTINGS @ 40% FIO2 600 TV R 18 PEEP 5. ABD SOFT, PEG TUBE IN PLACE WITH DRAINAGE BAG, DARK BROWN/RED SECRETIONS COMING OUT OF PEG TUBE. PT CURRENTLY NPO EXCEPT MEDS. PEG TUBE AUSCULTATED POSITIVE FOR PLACEMENT. MCCALLUM CATH IN PLACE, YELLOW CONCENTRATED URINE NOTED. IV TO R GROIN/FEMORAL TRIPLE LUMEN, SODIUM BICARB DRIP INFUSING. SKIN INTACT, SCATTERED BRUISING NOTED, TO R ARM. BLANCHABLE REDNESS TO BUTTOCKS. SCDS IN PLACE. NO OTHER S/S OF ACUTE DISTRESS NOTED. WILL CONTINUE TO OBSERVE.
--- NOTE | 2018-10-09 20:00 | NUR ---
VAP ORAL CARE DONE PER PROTOCOL, PT TURNED AND REPOSITIONED FOR COMFORT. PT SUCTIONED, SCANT CREAMY SECRETIONS NOTED. DARK BROWN DRAINAGE NOTED OUT OF PEG TUBE, DR SOLER MADE AWARE. NO S/S OF ACUTE DISTRESS NOTED. WILL CONTINUE TO OBSERVE
[2018-10-09 20:18] LABS: HEMATOCRIT 22.1 % (36-52); HEMOGLOBIN 7.2 g/dL (12.0-18.0); MEAN CORPUSCULAR HEMOGLOBIN 28 pg (27-31); MEAN CORPUSCULAR HGB CONC 33 g/dL (33-37); MEAN CORPUSCULAR VOLUME 85.8 fL (80-94); PLATELET COUNT (AUTO) 67 K/uL (140-450); RED BLOOD CELL COUNT(AUTO) 2.58 MIL/uL (4.20-6.10); RED CELL DISTRIBUTION WIDTH 17.2 % (11.6-13.7); WHITE BLOOD COUNT (AUTO) 27.7 K/uL (4.8-10.8)
[2018-10-09 21:00] LABS: LYMPHOCYTES % (MANUAL) 4 % (20-46); MONOCYTES % (MANUAL) 2 % (5-12)
[2018-10-09] MEDS ORDERED: VANCOMYCIN HCL 750 MG in DEXTROSE 5% 250 ML IV SCH (21:00)
--- NOTE | 2018-10-09 21:00 | NUR ---
DR SOLER MADE AWARE OF HGB 7.2 PLATELET 64, TO PUT ORDERS FOR TYPE/CROSSMATCH FOR X1 UNIT [facility]
[2018-10-09 21:01] LABS: METAMYELOCYTES % 8 % (0-0)
[2018-10-09] MEDS ORDERED: VANCOMYCIN 1,000 MG VIAL ONE (21:20)
[2018-10-09] MEDS: DOCUSATE 100 MG/10 ML UDC GT SCH (21:46)
[2018-10-09] MEDS: ATORVASTATIN 20 MG TAB GT SCH (21:47)
--- NOTE | 2018-10-09 22:30 | NUR ---
, IZA CALLED, PHONE CONSENT OBTAINED FOR BLOOD TRANSFUSION, IZA AGREEABLE, CONSENTED VIA PHONE WITH TWO NURSE VERIFICATION. PT VSS, NO ACUTE DISTRESS WILL CONTINUE TO OBSERVE
[2018-10-09] MEDS: LORazepam 2 MG/ML VIAL IM/IVP PRN (22:55)
--- NOTE | 2018-10-09 23:10 | NUR ---
LAB @ BEDSIDE FOR TYPE/CROSSMATCH
[2018-10-10] VITALS (107 sets, daily range): BP systolic 79–135; BP diastolic 49–80
--- NOTE | 2018-10-10 | NUR ---
VAP ORAL CARE DONE, PT TURNED AND REPOSITIONED, VSS. LEVOPHED @ 14 MCG/MIN. WILL CONTINUE TO OBSERVE.
[2018-10-10] MEDS: MIDODRINE 5 MG TAB PEG SCH ×5 (00:50→23:06)
--- NOTE | 2018-10-10 02:05 | NUR ---
[facility] UNIT READY, STARTED INFUSING @ 0205
[2018-10-10] MEDS: SODIUM BICARBONATE IV SCH (02:06)
[2018-10-10] MEDS: DEXTROSE 5% IV SCH (02:06)
[2018-10-10] MEDS: MORPHINE SULFATE 4 MG/ML SYR IVP PRN (02:32)
--- NOTE | 2018-10-10 03:45 | NUR ---
BLOOD TRANSFUSION ENDED. NO REACTION NOTED, WILL CONTINUE TO OBSERVE.
[2018-10-10] MEDS: HYDROCORTISONE NA SUCC 100 MG/2 ML VIAL IV SCH ×3 (03:57→20:11)
--- NOTE | 2018-10-10 04:00 | NUR ---
VAP ORAL CARE DONE. PT TURNED AND REPOSITIONED. VSS.
--- NOTE | 2018-10-10 05:00 | NUR ---
AM CARE DONE.
[2018-10-10 05:56] LABS: EOSINOPHILS # (AUTO) 0.4 K/uL (0-0.4); EOSINOPHILS % (AUTO) 1.5 % (0.0-4.0); HEMATOCRIT 24.3 % (36-52); LYMPHOCYTES # (AUTO) 0.6 K/uL (2.0-11.5); LYMPHOCYTES % (AUTO) 2.6 % (20.5-51.1); MEAN CORPUSCULAR HEMOGLOBIN 28 pg (27-31); MEAN CORPUSCULAR HGB CONC 33 g/dL (33-37); MEAN CORPUSCULAR VOLUME 86.3 fL (80-94); MONOCYTES # (AUTO) 0.5 K/uL (0.8-1.0); MONOCYTES % (AUTO) 2.1 % (1.7-9.3); NEUTROPHILS # (AUTO) 23.3 K/uL (1.8-7.7); NEUTROPHILS % (AUTO) 93.8 % (42.2-75.2); PLATELET COUNT (AUTO) 54 K/uL (140-450); RED BLOOD CELL COUNT(AUTO) 2.82 MIL/uL (4.20-6.10); RED CELL DISTRIBUTION WIDTH 16.3 % (11.6-13.7); WHITE BLOOD COUNT (AUTO) 24.8 K/uL (4.8-10.8)
[2018-10-10] MEDS: ALBUTEROL SULFATE/IPRATROPIU 3 ML SOL IH SCH ×3 (06:53→19:20)
[2018-10-10] MEDS: INSULIN LISPRO SLIDING SCALE 100 UNITS/ML VIAL SUBQ PRN ×4 (07:00→20:59)
--- NOTE | 2018-10-10 07:06 | NUR ---
RECIVED PT ON VENT WITH SETTINGS CHARTED SXN PT WITH MIN AMT OFF WHITE SECS BREATH SOUNDS PRESENT BILAT COARSE ETT TUBE SECURE AMBUBAG AT BEDSIDE VENT PLUGGED INTO RED OUTLET WILL CONTINUE TO MONITOR PT ON VENT
--- NOTE | 2018-10-10 07:25 | NUR ---
REPORT GIVEN TO DAY SHIFT RN FOR CONTINUITY OF CARE
--- NOTE | 2018-10-10 07:26 | NUR ---
RECEIVED PATIENT FROM NIGHT RN. PATIENT IN BED OPENS EYES SPONTANEOUSLY BUT NOT TRACKING. RIGHT ARM HAVING TREMOR LIKE MOVEMENT WHEN STIMULATED WITH DEEP PAIN, ALL OTHER EXTREMITIES SEVERELY WEAK. ORALLY INTUBATED ETT SIZE 7, 25 CM IN THE LIP ON VENTILATOR AC 18 FIO2 30% PEEP 5 TIDAL VOLUME 600, SINUS RHYTHM WITH OCCASIONAL PVCs, ON LEVOPHED 6 MCG/MIN. WITH IVFLUID D5% WITH 3 AMPULES OF BICARBONATE AT 50CC/HR., TEMPORAL TEMPERATURE 98.2F, 2+ PITTING EDEMA IN LEFT HAND/ARM, REST OF THE EXTREMITIES 1+ PITTING EDEMA, WITH PEG TUBE CONNECTED TO DRAIN HAVING DARK BROWN OUTPUT, PATIENT HAS MCCALLUM CATHETER FR.16 YELLOW CLOUDY URINE NOTED, NO PRESSURE SORES, PATIENT HAS TRIPLE LUMEN CENTRAL LINE AT RIGHT FEMORAL DRESSING AND SITE LOOKS CLEAN AND INTACT
[2018-10-10 07:30] LABS: MAGNESIUM 2.1 mg/dL (1.8-2.4); PHOSPHORUS 1.5 mg/dL (2.5-4.9)
[2018-10-10] MEDS: BLOOD GLUCOSE MONITORING 1 DEV DEV FS SCH ×4 (07:30→20:40)
[2018-10-10 07:33] LABS: ANION GAP 13.4 (8-16); POTASSIUM 2.4 mmol/L (3.5-5.1)
--- NOTE | 2018-10-10 07:46 | NUR ---
DR. CHAVES ROUNDING PATIENT. INFORMED OF PATIENT'S CRITICAL LABORATORY VALUE. POTASSIUM 2.4, PLATELET 54, LACTIC 3.0 MD SAID SHE'LL PUT IN ORDERS
[2018-10-10] MEDS ORDERED: PROBIOTIC SCREEN 1 EA MISC MC PRN (08:10)
[2018-10-10] MEDS ORDERED: POTASSIUM CHLORIDE 20% 40 MEQ/15 ML UDC GT SCH (08:15)
[2018-10-10] MEDS: LACTOBACILLUS RHAMNOSUS GG 1 EACH CAP PO SCH (08:27)
[2018-10-10] MEDS: PANTOPRAZOLE 40 MG INJ VIAL IVP SCH ×2 (08:27→20:10)
[2018-10-10] MEDS: PHENYTOIN 100 MG/4 ML UDC GT SCH ×2 (08:27→20:11)
[2018-10-10] MEDS: GLYCOPYRROLATE 1 MG TAB GT SCH ×3 (08:27→16:21)
[2018-10-10] MEDS: CHOLECALCIFEROL 1,000 IU TAB GT SCH (08:28)
[2018-10-10] MEDS: CYANOCOBALAMIN 1,000 MCG TAB GT SCH (08:28)
[2018-10-10] MEDS: MEROPENEM 1,000 MG in NACL 0.9% 100 ML IV SCH ×2 (08:28→20:11)
[2018-10-10] MEDS: ASCORBIC ACID 500 MG/5 ML ORASYR GT SCH (08:29)
[2018-10-10] MEDS: MULTIVITAMIN/MINERALS 15 ML UDBTL GT SCH (08:29)
[2018-10-10] MEDS: FERROUS SULFATE 300 MG/5 ML UDC GT SCH (08:29)
[2018-10-10] MEDS: DEXT 5% /NACL 0.9% 1,000 ML IV SCH ×2 (08:42→22:12)
[2018-10-10] MEDS ORDERED: KCL 20 MEQ/WATER INJ PREMIX 200 ML IV SCH (08:45)
--- NOTE | 2018-10-10 08:48 | NUR ---
VENT CHANGES PER DR DENNY DECREASED VT TO 500 DECREASED RR TO 16 WILL COTINUE TO MONITOR PT ON VENT
--- NOTE | 2018-10-10 09:45 | NUR ---
DR. GALLEGO ROUNDING PATIENT.
--- NOTE | 2018-10-10 09:55 | NUR ---
DR. GALLEGO SPOKE TO PATIENT'S AND SISTER OVER THE PHONE AFTER VERIFYING PATIENT'S NAME AND DATE OF . MD EXPLAINED HE WANTS TO DO EGD AND THE RISKS/BENEFITS OF EGD AND CONSENTED OVER THE TELEPHONE, VERIFIED WITH 2ND RN CHANCE EPSTEIN.
[2018-10-10] MEDS ORDERED: POTASSIUM CHLORIDE 40 MEQ, LIDOCAINE MPF 1% - 5 mL VIAL 25 MG in NACL 0.9% 250 ML IV SCH (10:00)
--- NOTE | 2018-10-10 10:30 | NUR ---
DR. LUJAN CAME IN TO SEE PT AT BEDSIDE, WILL FOLLOW UP WITH NEW ORDERS.
[2018-10-10] MEDS: LORazepam 2 MG/ML VIAL IM/IVP PRN (10:34)
[2018-10-10] MEDS ORDERED: fentaNYL 0.05 MG/ML VIAL ONE (10:44)
[2018-10-10] MEDS ORDERED: MIDAZOLAM 2 MG/2 ML VIAL ONE (10:44)
--- NOTE | 2018-10-10 11:34 | NUR ---
DR. GALLEGO DONE WITH EGD. PATIENT TOLERATED THE PROCEDURE
--- NOTE | 2018-10-10 11:40 | NUR ---
DR. GALLEGO'S FEEDING INSTRUCTIONS RECEIVED VERBALLY AND VERIFIED WITH CHANCE PRESSLEY. PER DR. GALLEGO TO START VITAL AF TODAY AT 10ML/HR. AND INCREASE TOMORROW 20ML/HR. TOLERATED AND THEN TO BE RE ASSESSED BY FNS/ATTENDING DOCTOR TO THE MAXIMUM FEEDING RATE GOAL
[2018-10-10] MEDS ORDERED: EPINEPHrine PFS 0.1 MG/ML SYR IVP ONE (11:53)
[2018-10-10] MEDS: METOCLOPRAMIDE 10 MG/2 ML INJ VIAL IVP SCH ×3 (11:59→23:06)
--- NOTE | 2018-10-10 12:00 | NUR ---
ENTERAL FEED VITAL AF STARTED THROUGH THE GTUBE AT 10 ML/HR. WILL CONTINUE TO MONITOR
[2018-10-10] MEDS ORDERED: MIDAZOLAM 2 MG/2 ML VIAL IVP ONE (12:25)
--- NOTE | 2018-10-10 13:00 | NUR ---
PM CARE SPONGE BATH, CATHETER CARE DONE. GOWN AND LINENS CHANGED. SKIN INTACT. ORAL CARE AND REPOSITIONING DONE Q 2HOURLY
[2018-10-10] MEDS ORDERED: POTASSIUM CHLORIDE 40 MEQ, LIDOCAINE 1% 25 MG in NACL 0.9% 250 ML IV SCH (14:00)
--- NOTE | 2018-10-10 14:00 | NUR ---
LEVOPHED WAS DECREASED AT 1300HRS TO 4 MCG/MIN SYSTOLIC TRENDING IN 100-120s. SYSTOLIC REMAINS THE SAME >100 AFTER THE DECREASED DOSE. WILL CONTINUE TO MONITOR
--- NOTE | 2018-10-10 16:00 | NUR ---
CHECKED GASTRIC RESIDUAL FROM GTUBE AND THERE WAS NONE. FEEDING KEPT AT 10 ML/HR ORDERED
[2018-10-10] MEDS: NOREPINEPHRINE 16 MG in DEXTROSE 5% 250 ML IV PRN (16:24)
[2018-10-10 17:03] LABS: BASOPHILS % (AUTO) 0.1 % (0.0-2.0); EOSINOPHILS # (AUTO) 0.2 K/uL (0-0.4); EOSINOPHILS % (AUTO) 0.6 % (0.0-4.0); HEMATOCRIT 27.2 % (36-52); HEMOGLOBIN 8.9 g/dL (12.0-18.0); LYMPHOCYTES # (AUTO) 0.9 K/uL (2.0-11.5); MEAN CORPUSCULAR HEMOGLOBIN 28 pg (27-31); MEAN CORPUSCULAR HGB CONC 33 g/dL (33-37); MONOCYTES # (AUTO) 0.9 K/uL (0.8-1.0); NEUTROPHILS # (AUTO) 26.8 K/uL (1.8-7.7); NEUTROPHILS % (AUTO) 93.3 % (42.2-75.2); PLATELET COUNT (AUTO) 45 K/uL (140-450); RED BLOOD CELL COUNT(AUTO) 3.17 MIL/uL (4.20-6.10); RED CELL DISTRIBUTION WIDTH 16.4 % (11.6-13.7); WHITE BLOOD COUNT (AUTO) 28.7 K/uL (4.8-10.8)
--- NOTE | 2018-10-10 17:09 | NUR ---
PATIENT NOW POSITIVE FOR KLEBSIELLA ESBL BLOOD AND URINE. DR. CHAVES MADE AWARE. PATIENT ALREADY ON MEROPENEM. PATIENT TRANSFERRED TO ICU 8 ISOLATION ROOM WITHOUT ANY INCIDENCE
--- NOTE | 2018-10-10 17:09 | NUR ---
CONTINUED TO MONITOR PT ON VENT WITH SETTINGS CHARTED TRANSFERRED PT TO BED 8 FROM B2 VIA [facility]BU BAG NO ILL EFFECTS NOTED PLACED BACK ON VENT WITH SETTINGS ASCHARTED BREATH SOUNDS PRESENT BILAT COARSE SXN PT WITH MIN AMT OFF WHITE SECS ETT SECRE AMBU BAG AT BEDSIDE VENT PLUGGED INTO RED OUTLET
[2018-10-10 17:37] LABS: ANION GAP 11.7 (8-16); CARBON DIOXIDE 25.9 mmol/L (21-32); CREATININE 0.9 mg/dL (0.7-1.3); POTASSIUM 3.6 mmol/L (3.5-5.1)
[2018-10-10] MEDS ORDERED: VANCOMYCIN 1GM/DEXT 5% PREMIX 200 ML IV SCH (18:00)
--- NOTE | 2018-10-10 18:42 | NUR ---
PATIENT CONTINUES TO OPEN EYES SPONTANEOUSLY WITHOUT TRACKING, BEEN ABLE TO LOCALIZE PAIN USING RIGHT ARM, LEFT ARM STILL SEVERELY WEAK. STILL INTUBATED AC 16 FIO2 30% PEEP5 TIDAL VOLUME 500, LEVOPHED 4 MCG/MIN, (SEE VITALS SIGNS INTERVENTIONS) POTASSIUM REPLACEMENT INFUSING ALMOST DONE, D5NS AT 75 ML/HR ALL GOING THROUGH RIGHT FEMORAL CENTRAL, LINE, NO BED SORES, BILATERAL LEGS WITH SCDs
--- NOTE | 2018-10-10 18:53 | NUR ---
DR. TODD INFORMED OF PATIENT'S RECENT INFECTION AND TO PUT ORDERS FOR CONTACT ISOLATION
--- NOTE | 2018-10-10 19:10 | NUR ---
REPORT GIVEN TO NIGHT RN
--- NOTE | 2018-10-10 19:14 | NUR ---
RECEIVED REPORT FROM AM NURSE. PT AFEBRILE. NONVERBAL. EYES NON TRACKING. RESPONDS TO PAINFUL STIMULI. L SIDED WEAKNESS LUNG SOUNDS COARSE. ETT SIZE 7. 25 @ LIP. VENT SETTINGS ACVC FIO2 30 VT 500 RATE 16 PEEP 5. SINUS RHYTHM ON MONITOR. FEEDING VITAL AF 10 ML/HR WITH 10 ML H20 FLUSH Q12H. BOWEL SOUNDS HYPOACTIVE X 4 QUADRANT. ABD SOFT NONDISTENDED. [facility] PATENT 0 RESIDUAL NOTED. F/C IN PLACE. BLADDER NONDISTENDED. IV SITE RIGHT FEMORAL TRIPLE LUMEN. SITE INTACT. ON LEVOPHED 4 MCG/KG/MIN. NO SIGNS OF ACUTE DISTRESS. BED IN LOWEST POSITION. ON CONTACT ISOLATION. WILL CONTINUE TO MONITOR.
--- NOTE | 2018-10-10 20:00 | NUR ---
TITRATED LEVOPHED DOWN TO 2MCG/KG/HR = 1.87ML/HR TO MAINTAIN SBP 90+
--- NOTE | 2018-10-10 20:05 | NUR ---
DR. REDD CAME TO SEE THE PATIENT, NO NEW ORDERS GIVEN.
[2018-10-10] MEDS: DOCUSATE 100 MG/10 ML UDC GT SCH (20:11)
[2018-10-10] MEDS: ATORVASTATIN 20 MG TAB GT SCH (20:12)
--- NOTE | 2018-10-10 20:15 | NUR ---
BLOOD SUGAR 207MG/DL ADMINISTERED 4 UNITS VIA SLIDING SCALE.
[2018-10-10] MEDS: SODIUM PHOS / POTASSIUM PHOS 1 PKT PDR GT SCH (21:05)
[2018-10-10] MEDS ORDERED: SODIUM PHOS / POTASSIUM PHOS 1 PKT PDR ONE (21:06)
--- NOTE | 2018-10-10 21:53 | NUR ---
PT CLEANED AND REPOSITIONED AT THIS TIME. NO SIGNS OF ACUTE DISTRESS NOTED.
--- NOTE | 2018-10-10 22:20 | NUR ---
TITRATED DOWN LEVOPHED 1MCG/KG/MIN = 0.93ML/HR. VSS STABLE AT THIS TIME
[2018-10-11] VITALS (69 sets, daily range): BP systolic 69–121; BP diastolic 35–73
--- NOTE | 2018-10-11 00:04 | NUR ---
ORAL CARE PROVIDED AT THIS TIME. PT REPOSITIONED. NO SIGNS OF ACUTE DISTRESS NOTED.
--- NOTE | 2018-10-11 01:30 | NUR ---
PT OFF LEVOPHED AT THIS TIME. VITAL SIGNS STABLE. WILL CONTINUE TO MONITOR.
--- NOTE | 2018-10-11 02:40 | NUR ---
PT REPOSITIONED AND SUCTIONED AT THIS TIME. CLEAR, SCANT SPUTUM NOTED. NO SIGNS OF ACUTE DISTRESS. WILL CONTINUE TO OBSERVE.
--- NOTE | 2018-10-11 03:11 | NUR ---
RT AT BEDSIDE AT THIS TIME
--- NOTE | 2018-10-11 04:21 | NUR ---
PT TURNED AND REPOSITIONED AT THIS TIME. VAP ORAL CARE PROVIDED. NO SIGNS OF ACUTE DISTRESS NOTED.
[2018-10-11] MEDS: MIDODRINE 5 MG TAB PEG SCH ×3 (05:01→17:04)
[2018-10-11] MEDS: METOCLOPRAMIDE 10 MG/2 ML INJ VIAL IVP SCH ×3 (05:01→17:04)
--- NOTE | 2018-10-11 05:03 | NUR ---
LAB AT BEDSIDE AT THIS TIME. RN AZALIA BLOOD VIA FEMORAL CENTRAL LINE. NO SIGNS OF ACUTE DISTRESS NOTED.
--- NOTE | 2018-10-11 05:22 | NUR ---
RT AT BEDSIDE AT THIS TIME.
--- NOTE | 2018-10-11 06:18 | NUR ---
DR. CHAVES AT BEDSIDE AT THIS TIME. UPDATED ON PTS CURRENT CONDITION. WILL CONTINUE TO FOLLOW UP ANY ADDITIONAL ORDERS.
[2018-10-11] MEDS: BLOOD GLUCOSE MONITORING 1 DEV DEV FS SCH ×4 (06:30→21:24)
[2018-10-11] MEDS: INSULIN LISPRO SLIDING SCALE 100 UNITS/ML VIAL SUBQ PRN ×4 (06:35→21:39)
--- NOTE | 2018-10-11 06:37 | NUR ---
BLOOD SUGAR 208DL/MG AT THIS TIME. ADMINISTERED 4 UNITS OF HUMALOG VIA SLIDING SCALE TO LEFT ABD.
[2018-10-11 07:06] LABS: EOSINOPHILS # (AUTO) 0.1 K/uL (0-0.4); EOSINOPHILS % (AUTO) 0.6 % (0.0-4.0); HEMATOCRIT 25.3 % (36-52); HEMOGLOBIN 8.2 g/dL (12.0-18.0); LYMPHOCYTES # (AUTO) 0.9 K/uL (2.0-11.5); LYMPHOCYTES % (AUTO) 4.8 % (20.5-51.1); MEAN CORPUSCULAR HEMOGLOBIN 29 pg (27-31); MEAN CORPUSCULAR HGB CONC 33 g/dL (33-37); MEAN CORPUSCULAR VOLUME 87.7 fL (80-94); MONOCYTES # (AUTO) 0.5 K/uL (0.8-1.0); MONOCYTES % (AUTO) 2.6 % (1.7-9.3); NEUTROPHILS # (AUTO) 17.1 K/uL (1.8-7.7); PLATELET COUNT (AUTO) 40 K/uL (140-450); RED BLOOD CELL COUNT(AUTO) 2.89 MIL/uL (4.20-6.10); RED CELL DISTRIBUTION WIDTH 16.8 % (11.6-13.7); WHITE BLOOD COUNT (AUTO) 18.6 K/uL (4.8-10.8)
--- NOTE | 2018-10-11 07:06 | NUR ---
RECEIVED REPORT FROM NIGHT RN FOR CONTINUITY OF CARE. PATIENT IN STABLE CONDITION. WITH SPONTANEOUS EYE OPENING, BUT UNABLE TO TRACK MOVEMENT. SKIN WARM TO TOUCH WNL, TOENAILS ARE THICKENED AND YELLOW, FINE HAIR GROWTH, +2 EDEMA AND FAINT BILATERAL PEDAL PULSES. ON ETT SIZE 7 TAPED AT 25 CM TO VENT AC MODE FIO2 30%, PEEP 5, TV 500 AND RATE OF 16. FC FR 16 PATENT AND INTACT TO CLEAR YELLOW URINE IN MODERATE AMOUNT. LEFT UPPER QUADRANT G TUBE TO VITAL AF AT 20 ML/H, TOLERATING WELL. RIGHT FEMORAL CENTRAL LINE PATENT AND INTACT TO D5NS AT 75 ML/H. BILATERAL LUNGS ARE DIMINISHED. V/S STABLE. CALL LIGHT WITHIN REACH, BED AT LOWEST POSSIBLE POSITION. WILL CONTINUE TO MONITOR.
--- NOTE | 2018-10-11 07:07 | NUR ---
ENDORSED CARE TO INCOMING SHIFT FOR CONTINUITY OF CARE. NO SIGNS OF ACUTE DISTRESS NOTED.
[2018-10-11] MEDS: ALBUTEROL SULFATE/IPRATROPIU 3 ML SOL IH SCH ×3 (07:44→19:31)
--- NOTE | 2018-10-11 07:44 | NUR ---
RECEIVED ON A WhitetruffleAPE R860 VENTILATOR PLUGGED INTO RED OUTLET TOLERATING WELL WITHOUT INCIDENT TO AN ENDOTRACHEAL #7.0 SECURED AT 24cm WITH AN ANCHOR FAST CUFF PRESSURE CHECKED NOTED AMBU BAG NOTED AT HOB LOC AWAKE AND ALERT FOLLOWS COMMANDS BREATHS SOUNDS RHONCHI BILATERAL WIT GOOD CHEST RISE ENDOTRACHEAL SUCTION FOR MODERATE THIN CLEAR TO YELLOW SECRETINS AIRWAY PATENT Addendum: 10/11/18 at 1206 by Ketan Nickerson RT LATE ENTRY: SATURATION 99% ON FIO2 OF 30% POST HHN THERAPY TIRTAED FIO2 TO 28% ALVARO/WENDIE NOTIFIED
[2018-10-11 07:48] LABS: ANION GAP 12.4 (8-16); CARBON DIOXIDE 23.6 mmol/L (21-32); CREATININE 0.9 mg/dL (0.7-1.3)
--- NOTE | 2018-10-11 07:55 | NUR ---
DR BAHENA AND GROUP ROUNDING ON THE PATIENT. UPDATED OF PATIENT'S CONDITION. WILL FOLLOW UP WITH ORDERS.
[2018-10-11 07:58] LABS: MAGNESIUM 2.2 mg/dL (1.8-2.4); PHOSPHORUS 1.8 mg/dL (2.5-4.9)
[2018-10-11] MEDS: PHENYTOIN 100 MG/4 ML UDC GT SCH ×2 (08:34→21:23)
[2018-10-11] MEDS: FERROUS SULFATE 300 MG/5 ML UDC GT SCH (08:35)
[2018-10-11] MEDS: SODIUM PHOS / POTASSIUM PHOS 1 PKT PDR GT SCH ×2 (08:35→21:24)
[2018-10-11] MEDS: ASCORBIC ACID 500 MG/5 ML ORASYR GT SCH (08:36)
[2018-10-11] MEDS: CHOLECALCIFEROL 1,000 IU TAB GT SCH (08:36)
[2018-10-11] MEDS: MULTIVITAMIN/MINERALS 15 ML UDBTL GT SCH (08:36)
[2018-10-11] MEDS: GLYCOPYRROLATE 1 MG TAB GT SCH ×3 (08:36→16:56)
[2018-10-11] MEDS: PANTOPRAZOLE 40 MG INJ VIAL IVP SCH ×2 (08:37→21:25)
[2018-10-11] MEDS: HYDROCORTISONE NA SUCC 100 MG/2 ML VIAL IV SCH ×2 (08:37→21:25)
[2018-10-11] MEDS: MEROPENEM 1,000 MG in NACL 0.9% 100 ML IV SCH ×2 (08:37→21:23)
[2018-10-11] MEDS: CYANOCOBALAMIN 1,000 MCG TAB GT SCH (08:38)
[2018-10-11] MEDS: LACTOBACILLUS RHAMNOSUS GG 1 EACH CAP PO SCH (08:38)
[2018-10-11] MEDS: KCL 20 MEQ/WATER INJ PREMIX 100 ML IV SCH ×2 (08:53→10:50)
[2018-10-11] MEDS: DOCUSATE 100 MG/10 ML UDC GT SCH ×2 (08:55→21:24)
[2018-10-11] MEDS ORDERED: DOCUSATE SODIUM 100 MG GELCAP PO SCH (09:00)
[2018-10-11] MEDS: SODIUM PHOS / POTASSIUM PHOS 1 PKT PDR PO SCH ×2 (09:00→21:00)
--- NOTE | 2018-10-11 09:13 | NUR ---
RESTING WELL NO APPARENT PULMONARY DISTRESS NOTED GOOD CHEST RISE ENDOTRACHEAL SUCTION FOR SCANT SECRETIONS
[2018-10-11] MEDS: VANCOMYCIN 1GM/DEXT 5% PREMIX 200 ML IV SCH ×2 (10:43→21:23)
[2018-10-11 11:28] LABS: PROTHROMBIN TIME 11.6 secs (10.8-13.4)
[2018-10-11] MEDS: SUCRALFATE 1 GM TAB PEG SCH ×3 (11:39→21:23)
--- NOTE | 2018-10-11 11:59 | NUR ---
GOOD CHEST RISE NO SUCTIONING AT THIS TIME JUDICIAL REGISTRAR TO MONITOR
[2018-10-11] MEDS: NOREPINEPHRINE 16 MG in DEXTROSE 5% 250 ML IV PRN (12:16)
--- NOTE | 2018-10-11 12:25 | NUR ---
NOTIFIED DR. MCINTOSH LEVOPHED WAS RESTARTED AT 5 MCG/MIN DUE TO LOW BP 80/49.
[2018-10-11] MEDS ORDERED: POTASSIUM CHLORIDE 20% 40 MEQ/15 ML UDC GT SCH (13:00)
[2018-10-11] MEDS ORDERED: MAGNESIUM CITRATE 300 ML BTL PO SCH (13:00)
[2018-10-11] MEDS: DEXT 5% /NACL 0.9% 1,000 ML IV SCH (13:23)
--- NOTE | 2018-10-11 14:25 | NUR ---
10/11/18 RD FOLLOW UP COMPLETED PLEASE REFER TO NUTRITION ASSESSMENT UNDER CARE ACTIVITY FOR ESTIMATED NUTRITIONAL NEEDS. 1.CONTINUE TUBE FEED VITAL AF 1.2 @ 30 ML/HR TOLERATED - THIS WILL PROVIDE 864 KCALS AND 54 G PROTEIN. THIS WILL MEET 48% OF ESTIMATED ENERGY NEEDS AND 60% ESTIMATED PROTEIN NEEDS. 2.IF MEDICALLY STABLE, CONSIDER GRADUALLY INCREASING TO GOAL RATE 65 ML/HR. - THIS WILL PROVIDE 1872 KCALS AND 117 G PROTEIN. THIS WILL MEET 100% OF ESTIMATED ENERGY NEEDS AND 100% ESTIMATED PROTEIN NEEDS. 3. RECOMMEND FLUSH [address] TO FOLLOW-UP 2-3 DAYS, HIGH RISK TERRANCE TEE RD
--- NOTE | 2018-10-11 15:27 | NUR ---
NO PULMONARY DISTRESS NOTED AT THIS TIME GOOD CHEST RISE AIRWAY PATENT
--- NOTE | 2018-10-11 17:50 | NUR ---
NO EVIDENCE OF RESPIRATORY DISTRESS NOTED AT THIS TIME GOOD CHEST RISE AIRWAY PATENT TOLERATING VENTILATOR SUPPORT WELL WITHOUT INCIDENT
--- NOTE | 2018-10-11 19:10 | NUR ---
REPORT GIVEN TO INCOMING SHIFT FOR CONTINUITY OF CARE. PATIENT IN STABLE CONDITION.
--- NOTE | 2018-10-11 19:20 | NUR ---
RECEIVED REPORT FROM MORNING RN, ALVARO, FOR CONTINUITY OF CARE. VS STABLE AT THIS TIME. FLACC 0. PT ABLE TO OPEN EYES BUT IS UNABLE TO TRACK. PT DOES NOT APPEAR TO BE EXPERIENCING ANY DISCOMFORT AT THIS TIME. LUNG SOUNDS CLEAR. ETT TO VENT WITH SETTINGS: AC16, FIO2 28%, PEEP 5 AND TV 500. NO SIGNS OF RESPIRATORY DISTRESS NOTED. S1+S2 HEARD. SR ON MONITOR. RECEIVED PT ON LEVOPHED AT 5MCG. BS ACTIVE. ABDOMEN ROUND, SOFT, AND NONDISTENDED. GTUBE TO FEEDING. NO RESIDUAL NOTED. PT HAS VITAL AF 20ML/HR RUNNING. PT HAS SCD IN PLACE. PT HAS RIGHT FEMORAL CENTRAL LINE. NO BLEEDING NOTED FROM SITE. PT ON D5 NS AT 75ML/HR. PT HAS MCCALLUM CATHETER IN PLACE AND DRAINING YELLOW URINE, WITH SOME SEDIMENTS NOTED. HOB AT 30 DEGREES. ALL SAFETY PRECAUTIONS ARE IN PLACE. BED AT LOW POSSIBLE POSITION.
--- NOTE | 2018-10-11 21:15 | NUR ---
DR. REDD CAME IN TO SEE PT. UPDATED HIM REGARDING PT CONDITION. NO NEW ORDERS RECEIVED.
[2018-10-11] MEDS: ATORVASTATIN 20 MG TAB GT SCH (21:24)
--- NOTE | 2018-10-11 23:40 | NUR ---
VS STABLE AT THIS TIME. NO CHANGE IN PT CONDITION. PT OPENS EYES SPONTANEOUSLY. SR ON MONITOR. OXYGEN SATURATION WITHIN NORMAL LIMITS. RESPIRATIONS ARE EVEN AND UNLABORED.
[2018-10-12] VITALS (106 sets, daily range): BP systolic 76–134; BP diastolic 22–73
[2018-10-12] MEDS: METOCLOPRAMIDE 10 MG/2 ML INJ VIAL IVP SCH ×5 (00:32→23:55)
[2018-10-12] MEDS: MIDODRINE 5 MG TAB PEG SCH ×5 (00:32→23:56)
--- NOTE | 2018-10-12 01:20 | NUR ---
CURRENTLY, THERE IS NO CHANGE IN PT CONDITION. SBP IS FLUCTUATING. WILL TITRATE LEVOPHED PER ORDER AND APPROPRIATE.
[2018-10-12] MEDS: DEXT 5% /NACL 0.9% 1,000 ML IV SCH (02:39)
--- NOTE | 2018-10-12 03:20 | NUR ---
RESPIRATIONS ARE EVEN AND UNLABORED. SBP WNL. PT DOES NOT APPEAR TO BE IN PAIN. SR ON MONITOR. FLACC 0. NO CHANGE IN CONDITION CURRENTLY.
--- NOTE | 2018-10-12 04:18 | NUR ---
CHECKED GTUBE FOR RESIDUAL AND THERE IS NO RESIDUAL NOTED AT THIS TIME. PT APPEARS TO BE TOLERATING THE FEEDING WELL.
[2018-10-12 06:00] LABS: EOSINOPHILS # (AUTO) 0.6 K/uL (0-0.4); EOSINOPHILS % (AUTO) 4.3 % (0.0-4.0); HEMATOCRIT 26.6 % (36-52); HEMOGLOBIN 8.6 g/dL (12.0-18.0); LYMPHOCYTES # (AUTO) 0.7 K/uL (2.0-11.5); LYMPHOCYTES % (AUTO) 5.1 % (20.5-51.1); MEAN CORPUSCULAR HEMOGLOBIN 28 pg (27-31); MEAN CORPUSCULAR HGB CONC 32 g/dL (33-37); MEAN CORPUSCULAR VOLUME 87.5 fL (80-94); MONOCYTES # (AUTO) 0.9 K/uL (0.8-1.0); MONOCYTES % (AUTO) 6.4 % (1.7-9.3); NEUTROPHILS # (AUTO) 12.1 K/uL (1.8-7.7); NEUTROPHILS % (AUTO) 84.2 % (42.2-75.2); PLATELET COUNT (AUTO) 48 K/uL (140-450); RED BLOOD CELL COUNT(AUTO) 3.04 MIL/uL (4.20-6.10); RED CELL DISTRIBUTION WIDTH 16.9 % (11.6-13.7); WHITE BLOOD COUNT (AUTO) 14.4 K/uL (4.8-10.8)
[2018-10-12 06:36] LABS: ANION GAP 11.9 (8-16); CARBON DIOXIDE 23.6 mmol/L (21-32); CREATININE 0.8 mg/dL (0.7-1.3); POTASSIUM 3.5 mmol/L (3.5-5.1)
[2018-10-12 06:41] LABS: MAGNESIUM 2.2 mg/dL (1.8-2.4); PHENYTOIN (DILANTIN) 5.5 ug/ml (10.0-20.0); PHOSPHORUS 1.8 mg/dL (2.5-4.9)
[2018-10-12] MEDS: ALBUTEROL SULFATE/IPRATROPIU 3 ML SOL IH SCH ×3 (06:59→19:37)
--- NOTE | 2018-10-12 06:59 | NUR ---
RECEIVED PT ON CARESCAPE ON DOCUMENTED SETTINGS ALARMS ARE ON AND AUDIBLE PTS ET TUBE ZI=SIZE 7.0 IS SECURE 25 [address] FAST IN PLACE ARYA ROMAN I\Garfield MONTE PT IN HF QUIET VENT PLUGGED INTO RED OUTLET BMV HOB Addendum: 10/12/18 at 0834 by Nataliya Brock RT 24 CM TEETH
--- NOTE | 2018-10-12 07:28 | NUR ---
REPORT GIVEN TO MORNING RN FOR CONTINUITY OF CARE. ENDORSED THAT PT IS TO BE WEANED OFF FROM VENT TODAY.
--- NOTE | 2018-10-12 07:28 | NUR ---
RECEIVED REPORT FROM COVER STRIPPER RN. PT SLEEPING IN BED COMFORTABLY. AROUSABLE. ABLE TO FOLLOW SIMPLE COMMANDS. SR ON MONITOR. ON ETT TO VENT AC 16FIO2 28% TV 500 PEEP 5. REDNESS NOTED ON PERIORAL AREA. LUNGS CLEAR. ABDOMEN FIRM, ROUND AND NON-TENDER. HYPOACTIVE BOWEL SOUND. G-TUBE ON LLQ. SITE INTACT. RESIDUAL 0. ON FEEDING VITAL AF AT 20 ML/HR. EDEMATOUS UPPER AND LOWER EXTREMITIES. RIGHT FEMORAL TRIPLE LUMEN CENTRAL LINE IN PLACE. HAS BLOOD RETURNS IN WHITE LUMEN. ALL LINE FLUSHES WELL. INFUSING LEVOPHED AT 5 MCG/MIN. D5%NS AT 75 ML/HR. ON MCCALLUM CATHETER HOB ELEVATED. BED IN LOW POSITION LOCKED. PT DENIES N/V. DENIES PAIN AT THIS TIME.
[2018-10-12] MEDS: BLOOD GLUCOSE MONITORING 1 DEV DEV FS SCH ×4 (08:10→21:05)
[2018-10-12] MEDS: SUCRALFATE 1 GM TAB PEG SCH ×4 (08:14→20:56)
[2018-10-12] MEDS: INSULIN LISPRO SLIDING SCALE 100 UNITS/ML VIAL SUBQ PRN ×4 (08:14→21:06)
--- NOTE | 2018-10-12 08:21 | NUR ---
MORNING CARE PROVIDED. ADMINISTERED MEDICINE PER SCHEDULES. REPOSITIONED. KEPT ON COMFORTABLE POSITION. WILL CONTINUE TO MONITOR.
[2018-10-12] MEDS: VANCOMYCIN 1GM/DEXT 5% PREMIX 200 ML IV SCH ×2 (09:00→11:12)
--- NOTE | 2018-10-12 09:11 | NUR ---
AM VANCOMYCIN HELD PER PHARMACY.
[2018-10-12] MEDS: DOCUSATE 100 MG/10 ML UDC GT SCH ×2 (09:20→20:55)
[2018-10-12] MEDS: FERROUS SULFATE 300 MG/5 ML UDC GT SCH (09:20)
[2018-10-12] MEDS: PHENYTOIN 100 MG/4 ML UDC GT SCH ×2 (09:20→20:56)
[2018-10-12] MEDS: CHOLECALCIFEROL 1,000 IU TAB GT SCH (09:21)
[2018-10-12] MEDS: ASCORBIC ACID 500 MG/5 ML ORASYR GT SCH (09:21)
[2018-10-12] MEDS: GLYCOPYRROLATE 1 MG TAB GT SCH ×3 (09:21→17:44)
[2018-10-12] MEDS: SODIUM PHOS / POTASSIUM PHOS 1 PKT PDR GT SCH ×2 (09:21→20:55)
[2018-10-12] MEDS: MEROPENEM 1,000 MG in NACL 0.9% 100 ML IV SCH ×2 (09:22→20:55)
[2018-10-12] MEDS: HYDROCORTISONE NA SUCC 100 MG/2 ML VIAL IV SCH (09:22)
[2018-10-12] MEDS: PANTOPRAZOLE 40 MG INJ VIAL IVP SCH ×2 (09:23→20:56)
[2018-10-12] MEDS: LACTOBACILLUS RHAMNOSUS GG 1 EACH CAP PO SCH (09:23)
[2018-10-12] MEDS: CYANOCOBALAMIN 1,000 MCG TAB GT SCH (09:24)
[2018-10-12] MEDS: MULTIVITAMIN/MINERALS 15 ML UDBTL GT SCH (09:24)
--- NOTE | 2018-10-12 09:52 | NUR ---
PT RESTING IN BED COMFORTABLE. AROUSABLE. NO ACUTE DISTRESS NOTED. NO CHANGE IN LOC. CONTINUE ON LEVOPHED DRIP AT 5 MCG/MIN. ADMINISTER MEDICINE PER SCHEDULE. TOLERATING WELL.
--- NOTE | 2018-10-12 10:55 | NUR ---
PT PLACED ON BRIEF CPAP TRIAL PER DR SERVIN RETURNED TO A/C WITH PREVIOUS SETTINGS ABG IN AM AFTER CPAP TRAIL PER DR SERVIN
--- NOTE | 2018-10-12 10:57 | NUR ---
PT RESTING IN BED COMFORTABLY. VS WNL. DR. SERVIN AND RT AT BEDSIDE. PT ON WEANING TRIAL AT THIS TIME. Addendum: 10/12/18 at 1922 by Holly Field RN CPAP TRIAL
--- NOTE | 2018-10-12 11:02 | NUR ---
PT UNABLE TO TOLERATE WEANING, BACK TO SAME VENT SETTING. RT AT BEDSIDE. Addendum: 10/12/18 at 1923 by Holly Field RN UNABLE TO TOLERATE CPAP TRIAL
--- NOTE | 2018-10-12 11:34 | NUR ---
ORAL CARE PER PROTOCOL PROVIDED. MEDICINE ADMINISTERED PER SCHEDULED. TOLERATING WELL. WILL CONTINUE TO MONITOR.
[2018-10-12] MEDS: NACL 0.9% 500 ML IV SCH ×2 (11:40→19:52)
[2018-10-12] MEDS: NOREPINEPHRINE 16 MG in DEXTROSE 5% 250 ML IV PRN (12:32)
--- NOTE | 2018-10-12 12:42 | NUR ---
G-TUBE FEEDING ON. TOLERATING WELL. RESIDUAL 0. MEDICINE ADMINISTERED PER SCHEDULE. TOLERATING WELL. DENIES PAIN. VS WNL. WILL CONTINUE TO MONITOR.
--- NOTE | 2018-10-12 14:40 | NUR ---
SLEEPING IN BED COMFORTABLY. AROUSABLE. VS WNL. CONTINUOUS ON LEVOPHED DRIP. WILL CONTINUE TO MONITOR.
--- NOTE | 2018-10-12 15:14 | NUR ---
CHANGE ANCHOR FAST PT HAS EXSISITING RED SORES\RASH MOUTH AND CHEEKS
[2018-10-12] MEDS ORDERED: GENTAMICIN PER PHARMACY MC PRN (18:55)
--- NOTE | 2018-10-12 19:18 | NUR ---
REPORT GIVEN TO DIRECTOR OF EDUCATION RN FOR CONTINUITY OF CARE. PT ON STABLE CONDITION.
--- NOTE | 2018-10-12 19:30 | NUR ---
RECEIVED REPORT FROM MORNING RN, CONNIE, FOR CONTINUITY OF CARE. VS STABLE AT THIS TIME. PT AFEBRILE. PT STILL INTUBATED. ETT TO VENT WITH SETTINGS: AC16, FIO2 28%, TV 500, AND PEEP 5. LUNG SOUNDS CLEAR. NO SIGNS OF RESPIRATORY DISTRESS. RESPIRATIONS ARE EVEN AND UNLABORED. S1+S2 HEARD. SR ON MONITOR. ON LEVOPHED DRIP AT 5MCG/MIN. GTUBE TO FEEDING. NO RESIDUAL ASPIRATED. FEEDING STILL RUNNING AT 30ML/HR. ABDOMEN ROUND, SOFT AND NONDISTENDED. BS ACTIVE IN ALL QUADRANTS. MCCALLUM CATHETER IN PLACE. DRAINING CLEAR AND YELLOW URINE. PT HAS SCD IN PLACE. PT HAS RIGHT FEMORAL CENTRAL LINE. PT HAS NS AT 50ML/HR. HOB 30 DEGREES. BED AT LOW POSSIBLE POSITION. ALL SAFETY PRECAUTIONS ARE IN PLACE. WILL CONTINUE TO MONITOR PT.
[2018-10-12] MEDS ORDERED: GENTAMICIN 120 MG in DEXTROSE 5% 100 ML IV ONE (20:00)
[2018-10-12] MEDS ORDERED: GENTAMICIN 120 MG in DEXTROSE 5% 100 ML IV SCH (20:00)
[2018-10-12] MEDS: ATORVASTATIN 20 MG TAB GT SCH (20:55)
[2018-10-12] MEDS ORDERED: GENTAMICIN 80 MG/2 ML VIAL ONE (21:04)
--- NOTE | 2018-10-12 21:12 | NUR ---
DR. REDD AT BEDSIDE TO SEE PT. UPDATED HIM REGARDING PT'S CONDITION. RECEIVED NO NEW ORDERS AT THIS TIME.
--- NOTE | 2018-10-12 21:40 | NUR ---
DR. PEREIRA AT BEDSIDE TO SEE PT. UPDATED HIM REGARDING PT'S CONDITION. INFORMED HIM REGARDING THE REDNESS AROUND PT'S MOUTH AND ACCORDING TO HIM IT IS PURPURA AND IT IS D/T TO PT'S LOW PLATELETS. WILL FOLLOW-UP WITH ANY NEW ORDERS.
--- NOTE | 2018-10-12 21:55 | NUR ---
DR. ALEXANDER AT BEDSIDE TO SEE PT. INFORMED HIM REGARDING THE REDNESS AROUND PT'S MOUTH WELL.
[2018-10-12] MEDS ORDERED: HYDROCORTISONE NA SUCC 100 MG/2 ML VIAL IV SCH (22:00)
--- NOTE | 2018-10-12 22:50 | NUR ---
VS STABLE AT THIS TIME. NO CHANGE IN PT'S CONDITION. RESPIRATIONS ARE EVEN AND UNLABORED. PT DOES NOT APPEAR TO BE EXPERIENCING ANY DISCOMFORT AT THIS TIME. PT STILL ON LEVOPHED AT 5MCG/MIN. UNABLE TO TITRATE DOWN DUE TO BLOOD PRESSURE FLUCTUATING. ALL SAFETY PRECAUTIONS ARE IN PLACE. WILL CONTINUE TO MONITOR PT.
[2018-10-13] VITALS (62 sets, daily range): BP systolic 85–151; BP diastolic 39–97
--- NOTE | 2018-10-13 00:10 | NUR ---
NO CHANGE IN PT CONDITION AT THIS TIME. VS STABLE. SR ON MONITOR. RESPIRATIONS ARE EVEN AND UNLABORED AT THIS TIME.
--- NOTE | 2018-10-13 02:35 | NUR ---
PT DOES NOT APPEAR TO BE EXPERIENCING ANY DISCOMFORT AT THIS TIME. FLACC 0. VS WNL. ALL SAFETY PRECAUTIONS ARE STILL IN PLACE. PT STILL ON LEVOPHED DRIP. SR ON MONITOR.
[2018-10-13] MEDS: MIDODRINE 5 MG TAB PEG SCH ×3 (05:40→17:19)
[2018-10-13] MEDS: METOCLOPRAMIDE 10 MG/2 ML INJ VIAL IVP SCH (05:40)
[2018-10-13] MEDS: HYDROCORTISONE NA SUCC 100 MG/2 ML VIAL IV SCH ×2 (05:40→13:25)
--- NOTE | 2018-10-13 05:53 | NUR ---
MORNING CARE PROVIDED TO PT. MCCALLUM CATHETER CARE WELL. MCCALLUM CATHETER EMPTIED. PT TOLERATED BEING TURNED AND REPOSITIONED WELL. SCD KEPT IN PLACE. EXTREMITIES ELEVATED TO DECREASE EDEMA. ALL SAFETY PRECAUTIONS ARE STILL IN PLACE. WILL CONTINUE TO MONITOR PT.
[2018-10-13] MEDS: ALBUTEROL SULFATE/IPRATROPIU 3 ML SOL IH SCH ×2 (06:43→13:27)
--- NOTE | 2018-10-13 06:43 | NUR ---
REC'D PT ON CARESCAPE VENT SETTINGS AC16 VT 500 PEEP 5 FIO2 28% ALARMS ON AND AUDIBLE AND AMBU BAG AT SIDE OF VENT AND VENT IS PLUGGED INTO RED OUTLET, I\L TX GIVEN WITH DUONEB 3ML WITH NO ADVERSE REACTION POST TX B\S ARE CLEAR BILATERALLY, SXN PT SMALL AMT OF YELLOW SECRETION, PT IS ORALLY INTUBATED WITH 7.0 ET TUBE AT 24 CM MIDLINE AND PT HAS RED PATCHY SPOTS ON BOTH CHEEKS AND AROUND LIPS
[2018-10-13] MEDS: BLOOD GLUCOSE MONITORING 1 DEV DEV FS SCH ×3 (06:55→16:36)
[2018-10-13] MEDS: INSULIN LISPRO SLIDING SCALE 100 UNITS/ML VIAL SUBQ PRN ×2 (06:56→12:15)
[2018-10-13] MEDS: SUCRALFATE 1 GM TAB PEG SCH ×3 (06:56→16:36)
--- NOTE | 2018-10-13 07:01 | NUR ---
RECEIVED BEDSIDE REPORT FROM DIAMOND MERCHANT RN FOR CONTINUITY OF CARE. PATIENT IS AAOX1, OPENS EYES SPONTANEOUSLY, ABLE TO TRACK, UNABLE TO MAKE NEEDS KNOWN OR FOLLOWS COMMANDS. PATIENT SKIN IS INTACT, CENTRAL LINE TO RIGHT FEMORAL, ASYMPTOMATIC, PATENT. HE IS ON LEVOPHED 5 MCG, AND NS AT 75 ML/HR. PATIENT HAS ETT TO VENT, SETTINGS ARE AC MODE, RATE 16, FIO2 28, TV 500, PEEP 5. BREATHING EVEN, UNLABORED, LUNGS SOUNDS CLEAR. SR ON MONITOR, FLACC 0. HE HAS GTUBE IN PLACE TO TUBE FEEDING, NO RESIDUAL NOTED. MCCALLUM CATHETER IN PLACE TO YELLOW CLEAR URINE. SAFETY PRECAUTIONS ASSESSED AND ENFORCED. CALL LIGHT WITHIN REACH. WILL CONTINUE TO MONITOR
[2018-10-13 07:02] LABS: HEMATOCRIT 26.7 % (36-52); HEMOGLOBIN 8.8 g/dL (12.0-18.0); MEAN CORPUSCULAR HEMOGLOBIN 29 pg (27-31); MEAN CORPUSCULAR HGB CONC 33 g/dL (33-37); MEAN CORPUSCULAR VOLUME 87.6 fL (80-94); PLATELET COUNT (AUTO) 56 K/uL (140-450); RED BLOOD CELL COUNT(AUTO) 3.05 MIL/uL (4.20-6.10); RED CELL DISTRIBUTION WIDTH 17.1 % (11.6-13.7); WHITE BLOOD COUNT (AUTO) 13.6 K/uL (4.8-10.8)
--- NOTE | 2018-10-13 07:11 | NUR ---
REPORT GIVEN TO MORNING RN, JACK, FOR CONTINUITY OF CARE. VS STABLE AT THIS TIME.
[2018-10-13 07:15] LABS: ANION GAP 14.3 (8-16); CARBON DIOXIDE 22.5 mmol/L (21-32); CREATININE 0.7 mg/dL (0.7-1.3); POTASSIUM 3.8 mmol/L (3.5-5.1)
[2018-10-13 07:27] LABS: LYMPHOCYTES % (MANUAL) 5 % (20-46); MONOCYTES % (MANUAL) 7 % (5-12)
[2018-10-13 07:48] LABS: PHOSPHORUS 1.9 mg/dL (2.5-4.9)
[2018-10-13] MEDS: NACL 0.9% 500 ML IV SCH ×2 (08:10→17:00)
--- NOTE | 2018-10-13 08:10 | NUR ---
RESIDENT PHYSICIANS AND DR. BAHENA IN TO ROUND ON PATIENT, UPDATED ON PATIENT'S CONDITION
[2018-10-13] MEDS: MULTIVITAMIN/MINERALS 15 ML UDBTL GT SCH (09:29)
[2018-10-13] MEDS: PANTOPRAZOLE 40 MG INJ VIAL IVP SCH (09:29)
[2018-10-13] MEDS: LACTOBACILLUS RHAMNOSUS GG 1 EACH CAP PO SCH (09:29)
[2018-10-13] MEDS: DOCUSATE 100 MG/10 ML UDC GT SCH (09:29)
[2018-10-13] MEDS: ASCORBIC ACID 500 MG/5 ML ORASYR GT SCH (09:29)
[2018-10-13] MEDS: FERROUS SULFATE 300 MG/5 ML UDC GT SCH (09:29)
[2018-10-13] MEDS: PHENYTOIN 100 MG/4 ML UDC GT SCH (09:29)
[2018-10-13] MEDS: CYANOCOBALAMIN 1,000 MCG TAB GT SCH (09:30)
[2018-10-13] MEDS: CHOLECALCIFEROL 1,000 IU TAB GT SCH (09:30)
[2018-10-13] MEDS: MEROPENEM 1,000 MG in NACL 0.9% 100 ML IV SCH (09:30)
[2018-10-13] MEDS: SODIUM PHOS / POTASSIUM PHOS 1 PKT PDR GT SCH (09:30)
[2018-10-13] MEDS: GLYCOPYRROLATE 1 MG TAB GT SCH ×3 (09:30→16:36)
[2018-10-13] MEDS: GENTAMICIN 120 MG in DEXTROSE 5% 100 ML IV SCH ×2 (09:31→17:11)
--- NOTE | 2018-10-13 11:29 | NUR ---
DR. GALLEGO IN TO SEE PATIENT, UPDATED ON PATIENT'S CONDITION. WILL FOLLOW UP ON ANY ORDERS.
[2018-10-13] MEDS: METOCLOPRAMIDE 10 MG/10 ML SYRP UDC GT SCH ×2 (12:14→16:36)
--- NOTE | 2018-10-13 13:00 | NUR ---
DR. GÓMEZ IN TO ROUND ON PATIENT, WILL FOLLOW UP ON ANY ORDERS
--- NOTE | 2018-10-13 13:27 | NUR ---
SPOKE WITH DR. MALATHI RUSSOIN WEANING PT HOLD FOR TODAY WILL TRY TOMORROW, VENT CHECK I\L TX GIVEN WITH DUONEB 3ML WITH NO ADVERSE REACTION POST TX
--- NOTE | 2018-10-13 14:17 | NUR ---
10/13/18 RD FOLLOW UP COMPLETED PLEASE REFER TO NUTRITION ASSESSMENT UNDER CARE ACTIVITY FOR ESTIMATED NUTRITIONAL NEEDS. 1.CONTINUE TUBE FEED VITAL AF 1.2 @ 30 ML/HR TOLERATED. - THIS WILL PROVIDE 864 KCALS AND 54 G PROTEIN. THIS WILL MEET 48% ESTIMATED ENERGY NEEDS AND 60% ESTIMATED PROTEIN NEEDS. 2.IF MEDICALLY STABLE, CONSIDER GRADUALLY INCREASING TO GOAL RATE 65 ML/HR - THIS WILL PROVIDE 1872 KCALS AND 117 G PROTEIN. THIS WILL MEET 100% OF ESTIMATED ENERGY NEEDS AND 100% ESTIMATED PROTEIN NEEDS. 3.RECOMMEND FLUSH 160 ML Q6H 4.RD TO FOLLOW-UP 2-3 DAYS, HIGH RISK TERRANCE TEE RD
--- NOTE | 2018-10-13 14:20 | NUR ---
MIKA NOTE RECEIVED ORDER TO TRANSFER TO CONTRACTED FACILITY [facility]. [facility] MIKA TAMEZ PH# [phone] REQUESTED FOR THE TRANSFER ORDER, H&P, CONSULTATION NOTES, LATEST PROGRESS NOTE, DISCHARGE SUMMARY, LAB RESULTS, LATEST IMAGING RESULTS, MICRO RESULTS AND LIST OF MEDS BE FAXED TO HER AT [facility] [phone]. I FAXED HER THE INFORMATION. MIKA TAMEZ SAID SHE IS WORKING ON THE TRANSFER AND I GAVE HER THE NUMBER TO THE NURSING STATION WHERE PATIENT IS IN CASE IT HAPPENS AT A LATER TIME TODAY. ASYA PRESSLEY AWARE.
[2018-10-13] MEDS ORDERED: SUCR1TAB56 PEG (14:25)
[2018-10-13] MEDS ORDERED: PHOS1PDR4 GT (14:25)
[2018-10-13] MEDS ORDERED: D50SYR IVP (14:25)
[2018-10-13] MEDS ORDERED: LACT10SO11 GT (14:25)
[2018-10-13] MEDS ORDERED: ALBU3SOL83 IH ×2 (14:25)
[2018-10-13] MEDS ORDERED: LACT10CA PO (14:25)
[2018-10-13] MEDS ORDERED: GLUC-805 FS (14:25)
[2018-10-13] MEDS ORDERED: HUMSLIDE SUBQ (14:25)
[2018-10-13] MEDS ORDERED: METO5SOL20 GT (14:25)
[2018-10-13] MEDS ORDERED: LANS30EC68 GT (16:26)
[2018-10-13] MEDS ORDERED: MULT9LIQ2 GT (16:26)
[2018-10-13] MEDS ORDERED: PRO5 PEG (16:26)
--- NOTE | 2018-10-13 18:00 | NUR ---
PHILL FROM [facility] CALLED TO GIVE INFORMATION. PATIENT WILL BE GOING TO [facility] ICU, ROOM 237, ACCEPTING PHYSICIAN IS DR. VICTOR.
--- NOTE | 2018-10-13 18:04 | NUR ---
CALLED RADHA FROM [facility] TO GIVE REPORT FOR CONTINUITY OF CARE.
--- NOTE | 2018-10-13 19:20 | NUR ---
ENDORSED CONTINUITY OF CARE TO BLOCKER HEATED METAL FORMS RNSYLVESTER. NO SIGNS OF DISTRESS AT THIS TIME
--- NOTE | 2018-10-13 19:30 | NUR ---
RECEIVED REPORT FROM MORNING RN, JACK, FOR CONTINUITY OF CARE. VS STABLE AT THIS TIME. PT AFEBRILE. PT OPENS EYES. FLACC 0. DOES NOT APPEAR TO BE EXPERIENCING ANY DISCOMFORT AT THIS TIME. SR TO OCCASIONAL SB ON MONITOR. OXYGEN SATURATION STABLE. LUNG SOUNDS CLEAR. ETT TO VENT WITH SETTINGS: AC16, FIO2 28%, TV 500 AND PEEP 5. S1+S2 HEARD. PULSES ARE PALPABLE. BS ACTIVE IN ALL QUADRANTS. NO RESIDUAL NOTED. GTUBE IN PLACE. CURRENTLY PT NOT CONNECTED TO FEEDING. MCCALLUM CATHETER STILL IN PLACE. DRAINING CLOUDY, YELLOW URINE. PT STILL HAS RIGHT FEMORAL CENTRAL LINE IN PLACE. DRESSING DRY AND INTACT. SKIN INTACT. ALL SAFETY PRECAUTIONS ARE IN PLACE. HOB AT 30 DEGREES. CALL LIGHT WITHIN REACH. WILL CONTINUE TO MONITOR PT.
--- NOTE | 2018-10-13 20:00 | NUR ---
PT LEFT THE UNIT. VS STABLE AT THIS TIME. REPORT GIVEN TO CRITICAL CARE NURSE TRANSPORT. TRANSFER PAPER WORK HANDED WELL. PER REPORT FROM GORDO RNJACK, REPORT WAS ALREADY GIVEN TO MARLON PRESSLEY.
[2018-10-13] MEDS ORDERED: MEROPENEM 1,000 MG in NACL 0.9% 100 ML IV SCH (21:00)
[2018-10-13] MEDS ORDERED: HYDROCORTISONE NA SUCC 100 MG/2 ML VIAL IV SCH (21:00)
[2018-10-14] MEDS ORDERED: LANSOPRAZOLE 30 MG CAPDR GT SCH (06:30)
[2018-10-14] MEDS ORDERED: LACTULOSE 20 GM/30 ML UDC GT SCH (09:00)
== END 2018-10-13 20:00 | disposition short-term general hospital (02) | DRG 870 ==
LOC: MED 22:37 → MIC 10-08 01:09
PROVIDERS: ADMIT General Practice; ATTEND General Practice
PROC: 5A1955Z Respiratory Ventilation, Greater than 96 Consecutive Hours (ICD-10-PCS; principal; 2018-10-08)
PROC: 0BH18EZ Insertion of Endotracheal Airway into Trachea, Via Natural or Artificial Opening Endoscopic (ICD-10-PCS; 2018-10-08)
PROC: 5A09357 Assistance with Respiratory Ventilation, Less than 24 Consecutive Hours, Continuous Positive Airway Pressure (ICD-10-PCS; 2018-10-08)
PROC: 0W3P8ZZ Control Bleeding in Gastrointestinal Tract, Via Natural or Artificial Opening Endoscopic (ICD-10-PCS; 2018-10-10)
PROC: 30233N1 Transfusion of Nonautologous Red Blood Cells into Peripheral Vein, Percutaneous Approach (ICD-10-PCS; 2018-10-10)
DX: A41.59 Other Gram-negative sepsis (principal); R65.21 Severe sepsis with septic shock; G93.41 Metabolic encephalopathy; N17.0 Acute kidney failure with tubular necrosis; E43 Unspecified severe protein-calorie malnutrition; R53.2 Functional quadriplegia; J96.01 Acute respiratory failure with hypoxia; K25.4 Chronic or unspecified gastric ulcer with hemorrhage; J69.0 Pneumonitis due to inhalation of food and vomit; D65 Disseminated intravascular coagulation [defibrination syndrome]; N39.0 Urinary tract infection, site not specified; D68.59 Other primary thrombophilia; I69.354 Hemiplegia and hemiparesis following cerebral infarction affecting left non-dominant side; K56.7 Ileus, unspecified; J44.9 Chronic obstructive pulmonary disease, unspecified; E11.51 Type 2 diabetes mellitus with diabetic peripheral angiopathy without gangrene; E83.42 Hypomagnesemia; R13.10 Dysphagia, unspecified; E87.70 Fluid overload, unspecified; E83.39 Other disorders of phosphorus metabolism; F03.90 Unspecified dementia, unspecified severity, without behavioral disturbance, psychotic disturbance, mood disturbance, and anxiety; E87.6 Hypokalemia; K21.9 Gastro-esophageal reflux disease without esophagitis; N20.0 Calculus of kidney; G40.909 Epilepsy, unspecified, not intractable, without status epilepticus; D64.9 Anemia, unspecified; K80.20 Calculus of gallbladder without cholecystitis without obstruction; B96.1 Klebsiella pneumoniae [K. pneumoniae] as the cause of diseases classified elsewhere; E03.9 Hypothyroidism, unspecified; E78.5 Hyperlipidemia, unspecified; I10 Essential (primary) hypertension; Z68.24 Body mass index [BMI] 24.0-24.9, adult; Z88.6 Allergy status to analgesic agent; Z79.82 Long term (current) use of aspirin; Z79.51 Long term (current) use of inhaled steroids; Z93.1 Gastrostomy status
CPT/HCPCS: 31500; 36415; 36556; 36600; 70450; 71045; 74018; 80048; 80053; 80185; 80202; 80305; 81001; 82140; 82360; 82607; 82728; 82746; 82803; 82948; 83036; 83540; 83605; 83690; 83735; 83880; 84100; 84134; 84154; 84443; 84484; 85025; 85045; 85379; 85384; 85610; 85730; 86886; 86900; 86901; 86920; 87040; 87070; 87081; 87086; 87186; 87205; 87804; 89220; 93005; 93880; 93925; 93970; 94002; 94003; 94640; 94660; 96365; 96366; 96367; 99291; C1758; C9113; J0171; J0278; J1580; J1720; J1815; J2001; J2060; J2185; J2250; J2270; J2370; J2405; J2543; J2765; J3010; J3370; J3420; J3480; J3490; J7030; J7042; J7060; J7620; J8597; P9016; Q0092

== ENCOUNTER 2022-03-03 21:46 | Inpatient (IN) | payer MEDICARE, OTHER ==
[~2022-03-03] VITALS: Ht 175.3 cm; Wt 61.7 kg
[~2022-03-03 21:46] MED LIST changes: -ACET-2619 GT; +ALBU0.0912 IH; +ALBU3SOL83 IH; -AMLO5TAB7 GT; -ARTOP OP; +ASPI-1822 GT; +ATOR40TA GT; -ATRN INH; -BISA10SU2 PR; +CARV3.12 GT; +CYAN250013 GT; +D50SYR IVP; +DOCU50LI8 GT; -DOXA2TAB32 GT; -ENAL20TA19 GT; -FERR-18 GT; +FURO-572 GT; +GLUC-805 FS; -GLYC2TAB GT; +HUMSLIDE SUBQ; +LACT10CA PO; +LACT10SO11 GT; +LANS30EC68 GT; +LISI2.5T12 GT; -METF500T GT; +METO5SOL20 GT; -MULT-153 GT; +MULT9LIQ2 GT; -MVII GT; -NA P133E PR; -PHEN100C80 GT; +PHEN125S GT; +PHOS1PDR4 GT; +PRO5 PEG; +ROB1 GT; -SIMV20TA6 GT; +SUCR1TAB56 PEG; +[UNRECOGNIZED DRUG - CODE] GT; -[UNRECOGNIZED DRUG - CODE] GT
--- NOTE | 2022-03-03 21:46 | NUR ---
PT MELITON ALS. TAKEN TO BED 10
[2022-03-03 21:49] VITALS: BP 163/140
[2022-03-03] MEDS ORDERED: ACETAMINOPHEN EXTRA STRENGTH 500 MG TAB GT ONE (22:00)
[2022-03-03] MEDS ORDERED: NACL 0.9% 500 ML IV SCH (22:00)
--- NOTE | 2022-03-03 22:00 | NUR ---
received pt from EMS and placed to bed 10. pt currently a/o x 0 gcs 8. pt is a 66 year old male with hx of htn, dm, epilepsy, dementia biba from [facility] [place] for aloc and increased blood sugar. pt currently only responds to deep pain. PEG in place. rectal temp initially 105.7. Dr. Nagy aware of case. initially on NRB SUPERVISOR DENTURE DEPARTMENT>
--- NOTE | 2022-03-03 22:00 | NUR ---
Dr. Nagy at bedside to exam patient.
[2022-03-03 22:18] LABS: BASOPHILS % (AUTO) 0.2 % (0.0-2.0); EOSINOPHILS % (AUTO) 0.1 % (0.0-4.0); HEMATOCRIT 36.3 % (36-52); HEMOGLOBIN 11.4 g/dL (12.0-18.0); LYMPHOCYTES # (AUTO) 0.9 K/uL (2.0-11.5); LYMPHOCYTES % (AUTO) 7.9 % (20.5-51.1); MEAN CORPUSCULAR HEMOGLOBIN 27 pg (27-31); MEAN CORPUSCULAR HGB CONC 31 g/dL (33-37); MEAN CORPUSCULAR VOLUME 86.5 fL (80-94); MONOCYTES # (AUTO) 0.9 K/uL (0.8-1.0); NEUTROPHILS # (AUTO) 9.5 K/uL (1.8-7.7); NEUTROPHILS % (AUTO) 83.8 % (42.2-75.2); PLATELET COUNT (AUTO) 281 K/uL (140-450); RED CELL DISTRIBUTION WIDTH 16.9 % (11.6-13.7); WHITE BLOOD COUNT (AUTO) 11.3 K/uL (4.8-10.8)
[2022-03-03] MEDS ORDERED: DOCU-299 PO (22:23)
[2022-03-03] MEDS ORDERED: ACETAMINOPHEN 650 MG SUPP RC ONE (22:30)
[2022-03-03 22:33] LABS: PROTHROMBIN TIME 11.4 secs (10.8-13.4)
[2022-03-03 22:37] LABS: ALBUMIN 1.6 g/dL (3.4-5.0); CARBON DIOXIDE 27.9 mmol/L (21-32); CREATININE 1.7 mg/dL (0.6-1.3); POTASSIUM 4.9 mmol/L (3.5-5.1); TOTAL BILIRUBIN 0.2 mg/dL (0.0-1.0)
--- NOTE | 2022-03-03 22:58 | NUR ---
covid, urine , flu sent to lab.
[2022-03-03] MEDS ORDERED: NACL 0.9% 500 ML IV ONE ×2 (23:00)
[2022-03-03] MEDS ORDERED: NACL 0.9% 1,000 ML IV ONE (23:00)
[2022-03-03 23:04] LABS: APPEARANCE,URINE HAZY (CLEAR); BILIRUBIN,URINE NEGATIVE (NEGATIVE); BLOOD, URINE 1+ (NEGATIVE); COLOR,URINE YELLOW (YELLOW); LEUKOCYTE ESTERASE ,URINE 1+ (NEGATIVE); NITRITE, URINE NEGATIVE (NEGATIVE); PH,URINE 5.5 (5.0-9.0); UGLUCOSE 1+ (NEGATIVE)
[2022-03-03] MEDS ORDERED: MOM GT (23:09)
[2022-03-03] MEDS ORDERED: MAG10ORA GT (23:09)
[2022-03-03] MEDS ORDERED: OMEP40EC23 PO (23:09)
[2022-03-03 23:17] LABS: URINE AMORPHOUS URATE 2+ /HPF (None Seen)
--- NOTE | 2022-03-03 23:19 | NUR ---
SPOKE WITH PATIENT 'S FAMILY () TO UPDATE STATUS.
[2022-03-03] MEDS ORDERED: CRAN450T5 GT (23:42)
[2022-03-03] MEDS ORDERED: ZINC100T8 PO (23:42)
[2022-03-03] MEDS ORDERED: VITB12 GT (23:42)
[2022-03-03] MEDS ORDERED: ZINC50TA76 GT (23:42)
[2022-03-03] MEDS ORDERED: SENN-73 PO (23:52)
[2022-03-04] VITALS (22 sets, daily range): BP systolic 89–131; BP diastolic 50–87
--- NOTE | 2022-03-04 00:15 | NUR ---
PT TAKEN TO CT
--- NOTE | 2022-03-04 00:30 | NUR ---
PT RETURN FROM RADIOLOGY
--- NOTE | 2022-03-04 01:49 | NUR ---
remains on 15lpm nrb at this time. no changes in mentation.
[2022-03-04] MEDS ORDERED: NOREPINEPHRINE 4 MG/4 ML VIAL IV ONE ×2 (02:44→10:58)
[2022-03-04] MEDS ORDERED: NOREPINEPHRINE 4 MG in DEXTROSE 5% 250 ML IV PRN (02:50)
--- NOTE | 2022-03-04 02:51 | NUR ---
central line setup at bedside.
[2022-03-04] MEDS ORDERED: NACL 0.9% 1,000 ML IV ONE (03:00)
[2022-03-04] MEDS ORDERED: NOREPINEPHRINE 4 MG in DEXTROSE 5% 250 ML IV SCH (03:20)
[2022-03-04] MEDS ORDERED: PIPERACILLIN/TAZOBACTAM 2.25 GM VIAL IV ONE (03:45)
--- NOTE | 2022-03-04 04:20 | NUR ---
RECEIVED PT FROM ER VIA GURNEY.TRANSFERRED TO ICU BED 3.MONITORS ATTACHED.SR NOTED ON MONITOR.PT NON VERBAL; UNABLE TO FOLLOW COMMANDS.ON 100% NON REBREATHER.W/PERIPHERAL IV TO LT UPPER INNER ARM G18 INTACT INFUSING NS AT 120ML/HR AND RT WRIST G18 INTACT INFUSING LEVOPHED 4MG IN 250ML NS AT 8MCG/MIN.ALSO NOTED TLC TO RT IJ INTACT.STILL FOR CXR TO VERIFY PLACEMENT PER RAY PIE FILLING MIXER.W/GTUBE ALREADY IN PLACE.CLAMPED.PT NPO.W/MCCALLUM CATHETER TO BSD DRAINING ADEQUATE AMT OF YELLOW CLOUDY URINE W/SEDIMENTS.SCAR NOTED TO SACRUM AND BOTH HEELS WITH PURPLISH DISCOLORATION.PHOTO TAKEN.ALL EXTREMITIES W/GENERALIZED WEAKNESS.FLACC 0.FALL PRECAUTION IN PLACE.BED IN LOW POSITION.
--- NOTE | 2022-03-04 04:29 | NUR ---
Patient will be admitted to care of . Admited to icu. Will go to room icu 3. Belongings list completed. Report to hi ashraf.
--- NOTE | 2022-03-04 04:30 | NUR ---
BM NOTED, MUCOID BROWNISH MODERATE AMT NOTED; PT CLEANED
[2022-03-04] MEDS ORDERED: PIPERACILLIN/TAZOBACTAM 2.25 GM in DEXTROSE 5% 50 ML IV SCH (05:00)
--- NOTE | 2022-03-04 05:20 | NUR ---
MRSA TO BOTH NARES TAKEN.SPEC SENT TO LAB
--- NOTE | 2022-03-04 06:34 | NUR ---
PT STILL ON LEVOPHED DRIP AT 8MCG/MIN.BP 104/59 AT THIS TIME.ON 100% NON REBREATHER.NO SOB NOTED.02SAT 96%.FLACC 0 Addendum: 03/04/22 at 0658 by Dorota Camarena RN 385
--- NOTE | 2022-03-04 07:20 | NUR ---
RECEIVED PT IN BED, NON VERBAL, UNABLE TO FOLLOW COMMANDS. ON 100% NON-REBREATHER MASK. G-TUBE INTACT ON LEFT UPPER QUADRANT. MCCALLUM CATHETER DRAINING TO GRAVITY. BOTH HEEL PROTECTOR ON. PERIPHERAL IV 18 GAUGE ON LEFT UPPER FOREARM INTACT AND PATENT. PERIPHERAL IV RIGHT WRIST INTACT AND PATENT INFUSING NS @ 120 ML/HR AND LEVOPHED DRIP AT 8 MCG/MIN. RIGHT IJ INTACT, AWAITING FOR PLACEMENT VERIFICATION. SAFETY PRECAUTIONS IN PLACE.
--- NOTE | 2022-03-04 08:13 | NUR ---
ER PHYSICIAN AT BEDSIDE PULLING BACK CENTRAL LINE.
[2022-03-04] MEDS: NACL 0.45% 1,000 ML IV SCH ×2 (08:30→19:55)
--- NOTE | 2022-03-04 08:30 | NUR ---
DR. THOMPSON AT BEDSIDE EXAMINING PT.
[2022-03-04] MEDS ORDERED: ALUMINUM HYD/MAG/SIMETHICONE 30 ML UDC PO PRN (08:45)
[2022-03-04] MEDS ORDERED: MAGNESIUM HYDROXIDE 2400 MG/30 ML UDC GT SCH (08:45)
[2022-03-04] MEDS ORDERED: DEXTROSE 50% 50 ML SYR IVP PRN (08:45)
--- NOTE | 2022-03-04 08:55 | NUR ---
XRAY DONE AT BEDSIDE.
[2022-03-04] MEDS ORDERED: MULTIVITAMIN 5 ML ORASYR GT SCH (09:00)
[2022-03-04] MEDS ORDERED: MAG SULF 2000 MG/WATER PREMIX 50 ML IV PRN (09:05)
[2022-03-04] MEDS ORDERED: POTASSIUM CHLORIDE 10 MEQ TABER PO PRN (09:05)
--- NOTE | 2022-03-04 09:20 | NUR ---
LAB AT BEDSIDE.
--- NOTE | 2022-03-04 09:24 | NUR ---
PATIENT HAS BEEN SCREENED AND CATEGORIZED HIGH NUTRITION RISK. PATIENT WILL BE SEEN WITHIN 1-2 DAYS OF ADMISSION. / RECEIVED REFERRAL FOR TUBE FEEDING ALEXUS AMEZQUITA RD
[2022-03-04 09:41] LABS: HEMATOCRIT 33.4 % (36-52); HEMOGLOBIN 10.5 g/dL (12.0-18.0); MEAN CORPUSCULAR HEMOGLOBIN 28 pg (27-31); MEAN CORPUSCULAR HGB CONC 32 g/dL (33-37); MEAN CORPUSCULAR VOLUME 89.4 fL (80-94); PLATELET COUNT (AUTO) 210 K/uL (140-450); RED BLOOD CELL COUNT(AUTO) 3.74 MIL/uL (4.20-6.10); RED CELL DISTRIBUTION WIDTH 16.4 % (11.6-13.7); WHITE BLOOD COUNT (AUTO) 10.6 K/uL (4.8-10.8)
[2022-03-04 09:51] LABS: CARBON DIOXIDE 22.2 mmol/L (21-32); POTASSIUM 3.2 mmol/L (3.5-5.1)
[2022-03-04] MEDS ORDERED: INSULIN LISPRO 100 UNITS/ML VIAL SUBQ SCH (10:30)
[2022-03-04] MEDS: VITAMIN D 400 IU TAB GT SCH (10:30)
[2022-03-04] MEDS: CYANOCOBALAMIN 100 MCG TAB GT SCH (10:31)
[2022-03-04] MEDS: ZINC SULF 220 MG CAP GT SCH (10:31)
[2022-03-04] MEDS: ASCORBIC ACID 500 MG/5 ML ORASYR GT SCH (10:31)
[2022-03-04] MEDS: DOCUSATE 100 MG/10 ML UDC GT SCH ×2 (10:31→20:20)
[2022-03-04] MEDS: PANTOPRAZOLE 40 MG INJ VIAL IVP SCH (10:32)
[2022-03-04 10:33] LABS: LYMPHOCYTES % (MANUAL) 15 % (20-46); MONOCYTES % (MANUAL) 5 % (5-12)
--- NOTE | 2022-03-04 10:53 | NUR ---
DR. QUIJANO AT BEDSIDE.
[2022-03-04] MEDS ORDERED: POTASSIUM CHLORIDE 20% 40 MEQ/15 ML UDC GT SCH (11:00)
--- NOTE | 2022-03-04 11:10 | NUR ---
DR. WATTS AT BEDSIDE.
[2022-03-04] MEDS: NOREPINEPHRINE 8 MG in DEXTROSE 5% 250 ML IV PRN ×2 (11:12→18:48)
[2022-03-04] MEDS: MULTIVITAMIN/MINERALS 1 TAB GT SCH (11:14)
[2022-03-04] MEDS: BLOOD GLUCOSE MONITORING 1 DEV DEV FS SCH ×3 (11:38→20:20)
[2022-03-04] MEDS: INSULIN LISPRO SLIDING SCALE 100 UNITS/ML VIAL SUBQ PRN ×3 (11:47→20:20)
--- NOTE | 2022-03-04 11:53 | NUR ---
RECEIVED ON SUPPLEMENTAL OXYGEN AT 15 LPM VIA NON REBREATHER SATURATION 100% CHANGED OXYGEN DEVICE TO A NASAL CANNULA AT 2 LPM PATIENT "MOUTH BREATHING" ADDED HUMIDIFIER KARLA/RN NOTIFIED
[2022-03-04] MEDS ORDERED: BLOOD GLUCOSE MONITORING 1 DEV DEV FS SCH (12:00)
--- NOTE | 2022-03-04 12:02 | NUR ---
DC PLANN[age] YRS OLD MALE PATIENT [place] [facility] DX OF SEPTIC SHOCK, PNEUMONIA AND UTI. PATIENT HAS A HX OF EPILEPSY, RESP FAILURE ,APHASIA ,DEMENTIA AND NON-VERBAL. CXR SHOWED CONSOLIDATION THROUGHOUT THE LEFT LUNG CT HEAD SHOWED NO EVIDENCE OF ACUTE INTRACRANIAL PATHOLOGY IDENTIFIED. RAPID COVID TEST NEGATIVE. BLOOD AND URINE CULTURE PENDING. ADMINISTERED LEVOPHED DRIP FOR BP SUPPORT, IV ABX ZOSYN CONSULTED WITH PULMO, NEPHRO AND ID. DC PLAN TO TRANSFER TO [facility] WHEN STABLE FOR TRANSFER. CM TO FOLLOW Addendum: 03/05/22 at 1210 by Lilli Reeves RN DC PLANNING: PATIENT IF OFF LEVOPHED DRIP, ORDERED STABLE FOR TRANSFER TO [facility]. FAXED TO [facility] [phone]. CM TO FOLLOW Addendum: 03/05/22 at 1552 by Lilli Reeves RN DC PLANNING: RECEIVED A CALL FROM [facility] SPOKE WITH CHERY BUTLER SHE JUST SPOKE WITH THE FLOOR NURSE AND UNABLE TO TAKE PATIENT BECAUSE OF LOW BP AND HIGH CALCIUM AND PROVIDE THE AUTH # [id number] AND WILL CALL BACK TOMORROW. CM TO FOLLOW Addendum: 03/06/22 at 1634 by Lilli Reeves RN DC PLANNING: RECEIVED A CALL FROM [facility] SPOKE WITH JOHN CHAN REQUESTED ALL THE CLINICALS TO BE FAXED . UPDATED PT'S CLINICAL AND BP AND PT IS STABLE FOR TRANSFER . SHE WILL REVIEW AND CALL BACK. CM TO FOLLOW Addendum: 03/07/22 at 1130 by Lilli Reeves RN DC PLANNING: CALLED [facility] [phone] SPOKE WITH LAQUITA UPDATED HER PT'S CLINICAL AND THE DC PLAN FOR TOMORROW. SHE REQUESTED THE IMAGING AND CLINICALS TO BE FAXED . LAQUITA AGREED THAT POSSIBLE [place] [facility] AND NOT TO TRANSFER HIM TODAY SHE STATED WILL ARRANGE TRANSPORT FOR TOMORROW. FAXED ALL THE REQUEST TO [phone] .CM TO FOLLOW
[2022-03-04] MEDS ORDERED: VANCOMYCIN PER PHARMACY MC PRN (12:25)
[2022-03-04] MEDS: PHENYTOIN 100 MG/4 ML UDC GT SCH ×2 (12:46→20:17)
--- NOTE | 2022-03-04 12:47 | NUR ---
SEEN AND EXAMINED BY DR. REDD.
[2022-03-04] MEDS: MEROPENEM 500 MG in NACL 0.9% 50 ML IV SCH ×2 (13:10→20:17)
--- NOTE | 2022-03-04 13:29 | NUR ---
03/04/22 RD INITIAL ASSESSMENT COMPLETED PLEASE REFER TO NUTRITION ASSESSMENT UNDER CARE ACTIVITY FOR ESTIMATED NUTRITIONAL NEEDS. 1. CONTINUE GLUCERNA 1.2 @ 45 ML/HR PER MD ORDER -FWF: 150 ML Q6H 2. RECOMMEND DOMONIQUE BID PER RD PROTOCOL -WITH DOMONIQUE BID, PT WILL RECEIVE 78% OF ESTIMATED KCAL AND 100% OF ESTIMATED PROTEIN NEEDS; ADEQUATE 3. MONITOR BLOOD GLUCOSE LEVELS 4. RD TO FOLLOW-UP 2-3 DAYS, HIGH RISK ALEXUS AMEZQUITA RD
[2022-03-04] MEDS: VANCOMYCIN 1,000 MG in DEXTROSE 5% 250 ML IV SCH (14:30)
--- NOTE | 2022-03-04 18:00 | NUR ---
VSS. ORAL CARE PROVIDED. PERICARE PROVIDED. PT WITH 1 MEDIUM LOOSE BOWEL MOVEMENT. TURNED AND REPOSITIONED. SAFETY PRECAUTIONS IN PLACE.
--- NOTE | 2022-03-04 19:12 | NUR ---
ENDORSED TO MEDIA RELATIONS SPECIALIST NURSE FOR CONTINUITY OF CARE.
--- NOTE | 2022-03-04 19:15 | NUR ---
ASSUMED CARE OF PT.INITIAL ASSESSMENT DONE.PT OPENS EYES, NOT FOLLOWING COMMANDS.SR ON MONITOR.ON 02NC AT 2LPM.NO SOB NOTED.INTERMITTENT PRODUCTIVE COUGHING NOTED, SUCTIONED SMALL TO MODERATE AMT OF WHITISH SECRETIONS.W/TLC TO RT IJ INTACT,GOOD BLOOD RETURN TO ALL 3 PORTS INFUSING LEVOPHED 8MG IN 250ML D5W AT 10MCG/MIN AND 1/2 NS AT 100ML/HR.W/PERIPHERAL IV TO JOSE G18, SALINE LOCK AND RT WRIST G18 SALINE LOCK.W/GTUBE FEEDING GLUCERNA 1.2 AT 30ML/HR WITH WATER FLUSH ORDERED.30ML RESIDUALS NOTED.W/MCCALLUM CATHETER TO BSD DRAINING SMALL AMT OF YELLOW URINE W/SEDIMENTS.SCAR TO SACRUM AND PURPLISH DISCOLORATION TO BOTH HEELS STILL NOTED.FLACC 0.CALL LIGHT WITHIN REACH,BED IN LOW POSITION.WILL CONTINUE TO CLOSELY MONITOR PT.
[2022-03-04] MEDS: ATORVASTATIN 20 MG TAB GT SCH (20:16)
[2022-03-04] MEDS: SENNA 8.6 MG TAB PO SCH (20:21)
--- NOTE | 2022-03-04 21:00 | NUR ---
DUE MEDS GIVEN.ORAL CARE DONE.REPOSITIONED.FLACC 0
--- NOTE | 2022-03-04 22:15 | NUR ---
BM NOTED,MODERATE AMT OF SOFT TO LIQUID BROWNISH STOOL NOTED.PT CLEANED.REPOSITIONED
[2022-03-05] VITALS (20 sets, daily range): BP systolic 96–121; BP diastolic 53–78
--- NOTE | 2022-03-05 | NUR ---
PT REPOSITIONED.STILL WITH INTERMITTENT COUGHING NOTED,SUCTIONED.FLACC 0
[2022-03-05] MEDS: VANCOMYCIN 1,000 MG in DEXTROSE 5% 250 ML IV SCH ×2 (01:54→13:02)
--- NOTE | 2022-03-05 02:00 | NUR ---
PT ASLEEP; NO SIGNS OF DISTRESS NOTED AT THIS TIME.FLACC 0.REPOSITIONED
--- NOTE | 2022-03-05 04:00 | NUR ---
AFEBRILE.PTS CONDITION REMAINS UNCHANGED.STILL ON LEVOPHED AT 2MCG/MIN.02NC AT 2LPM. ORAL CARE DONE.REPOSITIONED
[2022-03-05] MEDS: MEROPENEM 500 MG in NACL 0.9% 50 ML IV SCH ×3 (05:00→21:11)
[2022-03-05] MEDS: PHENYTOIN 100 MG/4 ML UDC GT SCH ×3 (05:00→21:01)
--- NOTE | 2022-03-05 05:47 | NUR ---
BM NOTED.LARGE AMT OF SOFT TO LIQUID BROWNISH STOOL NOTED.PT CLEANED.MORNING CARE DONE.REPOSITIONED.FLACC 0
[2022-03-05 05:54] LABS: BASOPHILS % (AUTO) 0.2 % (0.0-2.0); EOSINOPHILS # (AUTO) 0.1 K/uL (0-0.4); EOSINOPHILS % (AUTO) 0.8 % (0.0-4.0); HEMATOCRIT 28.4 % (36-52); HEMOGLOBIN 8.9 g/dL (12.0-18.0); LYMPHOCYTES # (AUTO) 1.2 K/uL (2.0-11.5); LYMPHOCYTES % (AUTO) 11.9 % (20.5-51.1); MEAN CORPUSCULAR HEMOGLOBIN 27 pg (27-31); MEAN CORPUSCULAR HGB CONC 31 g/dL (33-37); MEAN CORPUSCULAR VOLUME 86.3 fL (80-94); MONOCYTES # (AUTO) 0.4 K/uL (0.8-1.0); MONOCYTES % (AUTO) 3.7 % (1.7-9.3); NEUTROPHILS # (AUTO) 8.2 K/uL (1.8-7.7); NEUTROPHILS % (AUTO) 83.4 % (42.2-75.2); PLATELET COUNT (AUTO) 176 K/uL (140-450); RED BLOOD CELL COUNT(AUTO) 3.29 MIL/uL (4.20-6.10); RED CELL DISTRIBUTION WIDTH 16.7 % (11.6-13.7); WHITE BLOOD COUNT (AUTO) 9.8 K/uL (4.8-10.8)
[2022-03-05 06:26] LABS: MAGNESIUM 2.2 mg/dL (1.8-2.4); PHOSPHORUS 1.6 mg/dL (2.5-4.9)
[2022-03-05 06:32] LABS: ANION GAP 6.1 (8-16); CREATININE 0.6 mg/dL (0.6-1.3); POTASSIUM 3.1 mmol/L (3.5-5.1)
--- NOTE | 2022-03-05 07:15 | NUR ---
RECEIVED BEDSIDE REPORT FROM KENNA PAYNE RN FOR CONTINUITY OF CARE. PT LYING SUPINE IN THE BED, EYES CLOSED, PERRL. AAOX0. ON 2L NC SPO2 98%. SR ON THE MONITOR. BP 125/78. GTUBE IN PLACE, CLAMPED. MCCALLUM IN PLACE, DRAINING TO GRAVITY. BS ACTIVE THROUGHOUT. RIJ CENTRAL LINE IN PLACE, PATENT, NO S/S INFECTION, INFUSING 1/2 NS AT 100 ML/HR. LEVOPHED ON STANDBY. GENERALIZED WEAKNESS BUE BLE. SKIN INTACT, HEALED SCAR TO SACRUM, PURPLE DISCOLORATION TO BOTH HEELS. STANDARD PRECAUTIONS IN PLACE. SAFETY PRECAUTIONS MET. INITIAL ASSESSMENT COMPLETE, WILL CONTINUE TO CLOSELY MONITOR. Addendum: 03/05/22 at 0846 by Becka Mcmahon RN RECEIVED BEDSIDE REPORT FROM KENNA PAYNE RN FOR CONTINUITY OF CARE. PT LYING SUPINE IN THE BED, EYES CLOSED, PERRL. AAOX0. ON 2L NC SPO2 98%. SR ON THE MONITOR. BP 125/78. GTUBE IN PLACE, INFUSING GLUCERNA 1.2 AT THE GOAL OF 45 ML/H W/ 150 ML Q6H H20. BS ACTIVE THROUGHOUT. MCCALLUM IN PLACE, DRAINING TO GRAVITY. RIJ CENTRAL LINE IN PLACE, PATENT, NO S/S INFECTION, INFUSING 1/2 NS AT 100 ML/HR. LEVOPHED ON STANDBY. GENERALIZED WEAKNESS BUE BLE. SKIN INTACT, HEALED SCAR TO SACRUM, PURPLE DISCOLORATION TO BOTH HEELS. STANDARD PRECAUTIONS IN PLACE. SAFETY PRECAUTIONS MET. INITIAL ASSESSMENT COMPLETE, WILL CONTINUE TO CLOSELY MONITOR.
[2022-03-05] MEDS: BLOOD GLUCOSE MONITORING 1 DEV DEV FS SCH ×4 (07:37→20:57)
[2022-03-05] MEDS ORDERED: POTASSIUM CHLORIDE 20% 40 MEQ/15 ML UDC GT PRN (07:40)
--- NOTE | 2022-03-05 08:08 | NUR ---
SEEN AND EXAMINED BY DR CARR. ORDERS RECEIVED. WILL CONTINUE TO MONITOR AND DOWNGRADE TO TELE IF STABLE UNTIL AFTERNOON.
--- NOTE | 2022-03-05 08:10 | NUR ---
SEEN AND EXAMINED BY DR THOMPSON.
[2022-03-05] MEDS: VITAMIN D 400 IU TAB GT SCH (08:11)
[2022-03-05] MEDS: CYANOCOBALAMIN 100 MCG TAB GT SCH (08:12)
[2022-03-05] MEDS: DOCUSATE 100 MG/10 ML UDC GT SCH ×2 (08:12→21:01)
[2022-03-05] MEDS: MULTIVITAMIN/MINERALS 1 TAB GT SCH (08:12)
[2022-03-05] MEDS: ASCORBIC ACID 500 MG/5 ML ORASYR GT SCH (08:13)
[2022-03-05] MEDS: PANTOPRAZOLE 40 MG INJ VIAL IVP SCH (08:13)
[2022-03-05] MEDS: ZINC SULF 220 MG CAP GT SCH (08:13)
[2022-03-05] MEDS: INSULIN LISPRO SLIDING SCALE 100 UNITS/ML VIAL SUBQ PRN ×4 (08:15→20:56)
[2022-03-05] MEDS: NACL 0.45% 1,000 ML IV SCH (09:04)
--- NOTE | 2022-03-05 09:18 | NUR ---
SEEN AND EXAMINED BY DR QUIJANO.
--- NOTE | 2022-03-05 11:00 | NUR ---
PT RESTING COMFORTABLY. RESPIRATIONS EVEN AND UNLABORED. NO S/S ACUTE DISTRESS. WILL CONTINUE TO CLOSELY MONITOR.
[2022-03-05] MEDS ORDERED: SODIUM PHOS / POTASSIUM PHOS 1 PKT PDR PO SCH (12:00)
--- NOTE | 2022-03-05 13:15 | NUR ---
PT , IZA, VISITING AT BEDSIDE. UPDATED REGARDING PT CONDITION. ALL QUESTIONS ANSWERED AT THIS TIME.
--- NOTE | 2022-03-05 14:45 | NUR ---
PT CLEANED AND REPOSITIONED, NO STOOL NOTED. TOLERATED WELL. WILL CONTINUE TO CLOSELY MONITOR.
--- NOTE | 2022-03-05 15:25 | NUR ---
RECEIVED CALL FROM [facility]. SPOKE WITH JOHN CHAN. UPDATED REGARDING PT CONDITION, LABS, IMAGING. PROVIDED WITH AUTHORIZATION NUMBER [id number]. JOHN SAYS PT WILL STAY HERE ONE NIGHT AND WILL CALL BACK TO REASSESS TOMORROW.
--- NOTE | 2022-03-05 15:55 | NUR ---
PT , IZA, VISITING AT BEDSIDE.
--- NOTE | 2022-03-05 17:07 | NUR ---
SEEN AND EXAMINED BY DR REDD
--- NOTE | 2022-03-05 17:45 | NUR ---
PT CLEANED AND REPOSITIONED, L SOFT BM NOTED. TOLERATED WELL. WILL CONTINUE TO CLOSELY MONITOR.
--- NOTE | 2022-03-05 19:18 | NUR ---
ENDORSED BEDSIDE REPORT TO HERMILA PAYNE RN FOR CONTINUITY OF CARE.
--- NOTE | 2022-03-05 19:30 | NUR ---
RECEIVED ENDORSEMENT FROM AASHISH PRESSLEY DAYSHIFT NURSE AT BEDSIDE FOR CONTINUITY OF CARE. PT LYING IN BED, HOB ELEVATED 45%. HE IS AOX1 WITH 2 LITERS VIA N/C. PT ALSO HAS A TRIPLE LUMEN RIGHT IJ RUNNING 1/2 NS TO KVO. PT ALSO HAS A G TUBE INTACT AND RUNNING GLUCERNA AT 45MLS/HR. PT HAS A MCCALLUM CATHETER INTACT AND DRAINING YELLOW URINE. ALL ASPIRATION AND FALLS PRECAUTIONS IN PLACE.
--- NOTE | 2022-03-05 20:30 | NUR ---
PT G TUBE FLUSHED NO RESIDUAL NOTED.PT IS NOTED WITH NONPITTING EDEMA OF BILATERAL HANDS AND FEET. STOMACH IS ROUND AND SOFT. FOOT PROTECTORS ARE ON BILATERAL HEELS. PT HAD A BM , HE WAS CLEANED, TURNED AND REPOSITIONED IN BED. DRESSINGS ON SACRAL IS DRY AND INTACT. LUNG SOUNDS ARE COARSE WITH RHONCHI AND PT HAS INTERMITTENT COUGH PRODUCTIVE WITH SMALL THIN WHITE PHLEGM. ORAL CARE GIVEN AT BEDSIDE. AND ALL ORDERED PRECAUTIONS, FALLS ASPIRATION AND SEIZURE PRECAUTIONS IN PLACE.
[2022-03-05] MEDS: INSULIN LANTUS 100 UNITS/ML 10 ML VIAL SUBQ SCH (20:53)
[2022-03-05] MEDS: ATORVASTATIN 20 MG TAB GT SCH (21:01)
[2022-03-05] MEDS: SENNA 8.6 MG TAB PO SCH (21:02)
--- NOTE | 2022-03-05 21:30 | NUR ---
PT FINGERSTICK IS 252, HE WAS GIVEN 6 UNITS OF HUMALOG PER S/S COVERAGE. PT ALSO GIVEN ORDERED LANTUS 15 UNITS. WILL CONTINUE TO MONITOR PT FOR HIS BLOOD SUGAR. PT ALSO GIVEN ORDERED COLACE, SENOKOT TO ASSIST WITH BOWEL MOVEMENTS. PT WAS GIVEN LIPITOR FOR HLD AND DIALNTIN FOR SEZUIRE PREVENTION. VIA G TUBE. PT WAS UNABLE TO COMPREHEND TEACHING OF ORDERED MEDICATION. MERREM IV ABT ALSO HUNG FOR INFECTION DUE TO UTI PNA AND FOR DX OF SEPTIC SHOCK. PT AGAIN UNABLE TO EXPRESS COMPREHENSION OF THE ORDERED MEDICATION. ALL ORDERED PRECAUTIONS IN PLACE.
[2022-03-06] VITALS: BP 91/57
--- NOTE | 2022-03-06 00:16 | NUR ---
PT WAS TURNED AND REPOSITIONED IN BED. TUBE FEEDING COMPLETED, NEW BOTTLE OF GLUCERNA FEEDING HUNG AND STARTED AT 45MLS /HR ORDERED. V/S FOLLOWS: T 98.1 P 96 R 21 B/P 91/57 02 99% ON 2 LITERS VIA N/C. PT HAS NO S/S OF PAIN OR DISTRESS NOTED. ALL ORDERED PRECAUTIONS IN PLACE.
--- NOTE | 2022-03-06 01:04 | NUR ---
BLOOD WAS DRAWN FOR VANCO TROUGH VIA THE R IJ PORTS FLUSHED.
--- NOTE | 2022-03-06 02:00 | NUR ---
VANCO TROUGH RESULT WAS 19.5 SPOKE WITH PHARMACY, OK TO GIVE ORDERED VANCOMYCIN.
[2022-03-06] MEDS: VANCOMYCIN 1,000 MG in DEXTROSE 5% 250 ML IV SCH ×2 (02:25→13:34)
--- NOTE | 2022-03-06 02:58 | NUR ---
ORDERED PRN COUGH MEDICATION.
[2022-03-06] MEDS: guaiFENesin/CODEINE 100/10MG 5 ML UDC PO SCH ×3 (03:42→20:31)
[2022-03-06 04:00] VITALS: BP 93/52
--- NOTE | 2022-03-06 05:00 | NUR ---
PT TURNED, AND REPOSITIONED IN BED SACRAL DRESSING INTACT NO COUGHING NOTED AT THIS TIME. G TUBE FEEDING AND FLUIDS RUNNING ORDERED. 600 MLS PF LIGHT YELLOW URINE DRAINED FOR MCCALLUM CATHETER ALL ORDERED PRECAUTIONS IN PLACE.
[2022-03-06] MEDS: PHENYTOIN 100 MG/4 ML UDC GT SCH ×3 (05:23→20:31)
[2022-03-06] MEDS: MEROPENEM 500 MG in NACL 0.9% 50 ML IV SCH ×3 (05:31→20:31)
[2022-03-06 05:47] LABS: BASOPHILS % (AUTO) 0.2 % (0.0-2.0); EOSINOPHILS # (AUTO) 0.1 K/uL (0-0.4); EOSINOPHILS % (AUTO) 1.1 % (0.0-4.0); HEMATOCRIT 27.9 % (36-52); HEMOGLOBIN 8.9 g/dL (12.0-18.0); LYMPHOCYTES # (AUTO) 0.8 K/uL (2.0-11.5); LYMPHOCYTES % (AUTO) 10.6 % (20.5-51.1); MEAN CORPUSCULAR HEMOGLOBIN 28 pg (27-31); MEAN CORPUSCULAR HGB CONC 32 g/dL (33-37); MEAN CORPUSCULAR VOLUME 87.3 fL (80-94); MONOCYTES # (AUTO) 0.2 K/uL (0.8-1.0); MONOCYTES % (AUTO) 3.1 % (1.7-9.3); NEUTROPHILS # (AUTO) 6.8 K/uL (1.8-7.7); PLATELET COUNT (AUTO) 182 K/uL (140-450); RED CELL DISTRIBUTION WIDTH 16.7 % (11.6-13.7)
[2022-03-06 05:57] LABS: ANION GAP 7.1 (8-16); CARBON DIOXIDE 28.6 mmol/L (21-32); CREATININE 0.6 mg/dL (0.6-1.3); POTASSIUM 3.7 mmol/L (3.5-5.1)
[2022-03-06 06:32] LABS: PHOSPHORUS 1.6 mg/dL (2.5-4.9)
--- NOTE | 2022-03-06 06:55 | NUR ---
FINGERSTICK IS 212 4 UNITS OF COVERAGE GIVEN PER S/S PT STABLE WILL ENDORSE CARE TO AM SHIFT AT BEDSIDE. ALL ORDERED PRECAUTIONS IN PLACE.
[2022-03-06] MEDS: INSULIN LISPRO SLIDING SCALE 100 UNITS/ML VIAL SUBQ PRN ×3 (07:06→20:34)
--- NOTE | 2022-03-06 07:15 | NUR ---
RECEIVED PT LYING IN BED, NONVERBAL, UNABLE TO FOLLOW COMMANDS. ON O2 @2L VIA NC. SINUS RHYTHM ON MONITOR. VSS. G-TUBE INTACT AND INFUSING GLUCERNA 1.2 @ 45 ML/HR WITH WATER FLUSH 150 Q6H. NO GASTRIC RESIDUAL. MCCALLUM CATHETER DRAINING TO GRAVITY. BOTH HEEL PROTECTORS ON. CENTRAL LINE ON RIGHT IJ INTACT INFUSING 1/2 NS @TKO. SAFETY PRECAUTIONS IN PLACE. WILL CONTINUE TO MONITOR.
[2022-03-06] MEDS: BLOOD GLUCOSE MONITORING 1 DEV DEV FS SCH ×4 (07:56→20:19)
[2022-03-06 08:00] VITALS: BP 92/54
--- NOTE | 2022-03-06 08:15 | NUR ---
SEEN AND EXAMINED BY DR CARR
[2022-03-06] MEDS: MULTIVITAMIN/MINERALS 1 TAB GT SCH (08:32)
[2022-03-06] MEDS: ASCORBIC ACID 500 MG/5 ML ORASYR GT SCH (08:32)
[2022-03-06] MEDS: VITAMIN D 400 IU TAB GT SCH (08:32)
[2022-03-06] MEDS: DOCUSATE 100 MG/10 ML UDC GT SCH ×2 (08:32→20:31)
[2022-03-06] MEDS: PANTOPRAZOLE 40 MG INJ VIAL IVP SCH (08:33)
[2022-03-06] MEDS: ZINC SULF 220 MG CAP GT SCH (08:33)
[2022-03-06] MEDS: CYANOCOBALAMIN 100 MCG TAB GT SCH (08:34)
--- NOTE | 2022-03-06 08:35 | NUR ---
SEEN AND EXAMINED BY DR. THOMPSON.
--- NOTE | 2022-03-06 09:15 | NUR ---
SEEN AND EXAMINED BY DR QUIJANO.
[2022-03-06] MEDS: NACL 0.9% 500 ML IV SCH ×2 (09:50→10:50)
[2022-03-06] MEDS ORDERED: NACL 0.9% 500 ML IV ONE (11:10)
--- NOTE | 2022-03-06 11:30 | NUR ---
NOTED WITH COUGH. SUCTIONED NEEDED AND PROVIDED ORAL CARE.
[2022-03-06 12:00] VITALS: BP 103/56
--- NOTE | 2022-03-06 13:45 | NUR ---
03/06/22 RD FOLLOW UP COMPLETED PLEASE REFER TO NUTRITION ASSESSMENT UNDER CARE ACTIVITY FOR ESTIMATED NUTRITIONAL NEEDS. 1. CONTINUE GLUCERNA 1.2 @ 45 ML/HR PER MD ORDER -FWF: 150 ML Q6H 2. CONTINUE DOMONIQUE BID PER RD PROTOCOL -WITH DOMONIQUE BID, PT WILL RECEIVE 78% OF ESTIMATED KCAL AND 100% OF ESTIMATED PROTEIN NEEDS; ADEQUATE 3. MONITOR BLOOD GLUCOSE LEVELS 4. RD TO FOLLOW-UP 2-3 DAYS, HIGH RISK ALEXUS AMEZQUITA RD
[2022-03-06 16:00] VITALS: BP 110/67
--- NOTE | 2022-03-06 16:45 | NUR ---
WALKED PT TO TELE UNIT, PT ON BED. VSS. NO APPARENT DISTRESS NOTED. ON O2 VIA NASAL CANNULA. ENDORSED TO NURSE HERMILO FOR CONTINUITY OF CARE.
--- NOTE | 2022-03-06 16:46 | NUR ---
PT ARRIVED FROM ICU, ACCOMPANIED BY ICU NURSE AND TRANSPORTER. PT A&OX0. PT IS ON 2L 02 VIA NC. PT ON AUCTIONEER ART, SINUS RHYTHM. PT HAS G TUBE IN PLACE. PATENT. PT HAS MCCALLUM CATHETER IN PLACE, DRAINING YELLOW URINE. PT HAS CENTRAL LINE TO R INTERNAL JUGULAR, TRIPLE LUMEN. SKIN IS WARM AND DRY, PT HAS BILATERAL DISCOLORATION TO HEELS, WELL A CLOSED SACRAL SCAR. CALL LIGHT WITHIN REACH. ALL SAFETY MEASURES IN PLACE. WILL CONTINUE TO MONITOR.
--- NOTE | 2022-03-06 19:30 | NUR ---
ENDORSED PT TO SCREW MACHINE OPERATOR NURSE FOR CONTINUITY OF CARE. PT IS STABLE.
--- NOTE | 2022-03-06 19:31 | NUR ---
RECEIVED BEDSIDE REPORT FROM DAY RN. AT BEDSIDE. PT A&OX0 AROSABLE TO NAME. OPEN EYES AND TRACKS NURSE. RESPIRATION IS EQUAL AND UNLABORED ON 2L 02 VIA NC. PT ON SPECIAL EDUCATION PROFESSOR, SINUS RHYTHM. PT HAS G TUBE IN PLACE GLUCERNA INFUSING PER ORDER. MCCALLUM CATHETER IN PLACE, DRAINING YELLOW URINE. PT HAS CENTRAL LINE TO R INTERNAL JUGULAR, TRIPLE LUMEN TKO. SKIN IS WARM AND DRY, PT HAS BILATERAL DISCOLORATION TO HEELS WITH HEEL RAISER IN PACE, WELL A CLOSED SACRAL SCAR. CALL LIGHT WITHIN REACH. ALL SAFETY MEASURES IN PLACE. WILL CONTINUE TO MONITOR.
[2022-03-06 20:00] VITALS: BP 103/52
[2022-03-06] MEDS: INSULIN LANTUS 100 UNITS/ML 10 ML VIAL SUBQ SCH (20:27)
[2022-03-06] MEDS: SENNA 8.6 MG TAB PO SCH (20:31)
[2022-03-06] MEDS: ATORVASTATIN 20 MG TAB GT SCH (20:31)
--- NOTE | 2022-03-06 20:31 | NUR ---
VITAL SIGNS ARE STABLE. 10CC OF GASTRIC RESIDUAL NOTED. ALL LAVONNE MEDICATIONS GIVEN PER ORDERS. BS 157 HUMALOG 2U GIVEN PER SLIDING SCALE WELL LANTUS. GTUBE FEEDING RESUME. HOB ELEVATED. ORAL CARE PROVIDED. SAFETY MEASURES ARE IN PLACE. WILL CONTINUE TO MONITOR.
--- NOTE | 2022-03-06 22:10 | NUR ---
ROUNDS MADE. PT OBSERVED RESTING IN BED WITH EYES CLOSED. CHEST BERKLEY AND FALL NOTED. NO S/SX OF DISTRESS. SAFETY MEASURES ARE IN PLACE. WILL CONTINUE TO MONITOR.
[2022-03-07] VITALS: BP 100/51
--- NOTE | 2022-03-07 00:20 | NUR ---
VITAL SIGNS ARE WITHIN NORMAL LIMITS. ORAL CARE PROVIDED PT TOLERATED WELL. ALL SAFETY MEASURES ARE IN PLACE. WILL CONTINUE TO MONITOR.
[2022-03-07] MEDS: VANCOMYCIN 1,000 MG in DEXTROSE 5% 250 ML IV SCH ×2 (01:13→14:48)
--- NOTE | 2022-03-07 02:03 | NUR ---
PT OBSERVED RESTING IN BED WITH EYES CLOSED. CHEST RISE AND FALL NOTED.
[2022-03-07 04:00] VITALS: BP 103/51
--- NOTE | 2022-03-07 04:00 | NUR ---
VITAL SIGNS ARE WITHIN NORMAL LIMITS. ALL SAFETY MEASURES ARE IN PLACE. WILL CONTINUE TO MONITOR.
[2022-03-07] MEDS: guaiFENesin/CODEINE 100/10MG 5 ML UDC PO SCH ×3 (04:01→22:09)
[2022-03-07] MEDS: PHENYTOIN 100 MG/4 ML UDC GT SCH ×3 (04:01→22:09)
[2022-03-07] MEDS: MEROPENEM 500 MG in NACL 0.9% 50 ML IV SCH ×3 (04:01→21:51)
[2022-03-07 05:55] LABS: ANION GAP 8.9 (8-16); CARBON DIOXIDE 27.7 mmol/L (21-32); CREATININE 0.5 mg/dL (0.6-1.3); POTASSIUM 3.6 mmol/L (3.5-5.1)
[2022-03-07] MEDS: BLOOD GLUCOSE MONITORING 1 DEV DEV FS SCH ×4 (06:02→21:39)
[2022-03-07] MEDS: INSULIN LISPRO SLIDING SCALE 100 UNITS/ML VIAL SUBQ PRN ×4 (06:02→22:00)
[2022-03-07 06:31] LABS: MAGNESIUM 1.8 mg/dL (1.8-2.4); PHOSPHORUS 2.4 mg/dL (2.5-4.9)
--- NOTE | 2022-03-07 07:25 | NUR ---
GAVE BEDSIDE REPORT TO DAY RN, PT ENDORSED IN STABLE CONDITION
--- NOTE | 2022-03-07 07:27 | NUR ---
RECEIVED BEDSIDE REPORT FROM REVERBERATORY SKIMMER NURSE FOR CONTINUITY OF CARE. PT A&OX0 AROUSABLE TO NAME. OPEN EYES AND TRACKS NURSE. RESPIRATION IS EQUAL AND UNLABORED ON 2L 02 VIA NC. PT ON CHAIR LIFT OPERATOR, SINUS RHYTHM. SKIN IS WARM AND DRY, PT HAS BILATERAL DISCOLORATION TO HEELS WITH HEEL RAISER IN PACE, WELL A CLOSED SACRAL SCAR. HAS CENTRAL LINE TO R INTERNAL JUGULAR, TRIPLE LUMEN TKO. PT HAS G TUBE IN PLACE GLUCERNA INFUSING PER ORDER. MCCALLUM CATHETER IN PLACE, DRAINING YELLOW URINE BY GRAVITY. FLACC 0. PLAN OF CARE DISCUSSED. SAFETY PRECAUTIONS IN PLACE. CALL LIGHT WITHIN REACH. WILL CONTINUE TO MONITOR.
[2022-03-07 08:00] VITALS: BP 99/50
[2022-03-07] MEDS: MULTIVITAMIN/MINERALS 1 TAB GT SCH (09:09)
[2022-03-07] MEDS: ASCORBIC ACID 500 MG/5 ML ORASYR GT SCH (09:09)
[2022-03-07] MEDS: DOCUSATE 100 MG/10 ML UDC GT SCH ×2 (09:09→22:08)
[2022-03-07] MEDS: PANTOPRAZOLE 40 MG INJ VIAL IVP SCH (09:09)
[2022-03-07] MEDS: ZINC SULF 220 MG CAP GT SCH (09:09)
[2022-03-07] MEDS: CYANOCOBALAMIN 100 MCG TAB GT SCH (09:10)
[2022-03-07] MEDS: VITAMIN D 400 IU TAB GT SCH (09:10)
--- NOTE | 2022-03-07 09:23 | NUR ---
ALL SCHEDULED MEDS GIVEN. PT IS STABLE. NO DISTRESS NOTED. WILL CONTINUE TO MONITOR.
--- NOTE | 2022-03-07 10:30 | NUR ---
WOUND CARE NURSE AT BEDSIDE EVALUATING PATIENT'S SKIN CONDITION
--- NOTE | 2022-03-07 10:43 | NUR ---
PT. ADMITTED WITH DTI TO RIGHT HEEL AND NON-BLANCHABLE REDNESS TO LEFT HEEL. PT. WITH LOW DELONTE SCALE AT HIGH RISK, TRACH AND GT FERNANDO-STOMA SKIN DRY,INTACT. SCARS TISSUE TO SACRALCOCCYX, HEEL RAISERS PROVIDED AND WILL CONTINUE TO FOLLOW PRESSURE INJURY PREVENTION INTERVENTIONS. -PRESSURE INJURY STAGE 1 3X3CM NON-BLANCHABLE REDNESS WITH MUSHY SKIN -DTI TO RIGHT HEEL 1X1.5CM 100% MAROON COLOR WITH FERNANDO WOUND SKIN NON-BLANCHABLE REDNESS MUSHY SKIN -INCONTINENT ASSOCIATED DERMATITIS TO GROINS, SCROTAL, SACRALCOCCYX SKIN RED AND MOIST RECOMMENDATIONS - FERNANDO CARE Q2H AND APPLY THIN LAYER OF Z GUARD BID AND PRN IF SOILING -APPLY SKIN PREP WIPE TO BILATERAL HEELS BID AND APPLY RAISERS WITH OFFLOADING -POSITIONING: TURN AND REPOSITION PATIENT Q 2H OR SOONER USE PILLOWS TO KEEP BONY PROMINENCES FROM DIRECT CONTACT WITH SURFACES USE REPOSITIONING WEDGES TO PROVIDE 30-DEGREE ANGLE FOR SIDE LYING POSITIONS OFFLOADING OR FOAM DRESSING TO ALL TUBING TO PREVENT MEDICAL DEVICES RELATED PRESSURE INJURY -RE-EVALUATING AND MANAGING INCONTINENCE MONITOR SKIN CONDITION DURING POSITION CHANGE DO NOT MASSAGE REDNESS, BONY PROMINENCES FREQUENT FERNANDO-CARE AND PROVIDE BARRIER CREAMS PRN IF SOILING MOISTURE CONTROL BY OFFER BED [place]/URINAL /ABSORBENT PAD TO WICK AND HOLD MOISTURE KEEP SKIN DRY AND PROTECT FROM FRICTION -MANAGE FRICTION/SHEAR/MOBILITY KEEP HOB AT THE LOWEST LEVEL OF ELEVATION NO MORE THAN 30 DEGREE UNLESS OTHERWISE CONTRAINDICATED USE LIFT SHEET OR TRANSFER DEVICE TO MOVE PATIENT AND PREVENT LATERAL SHEER. PROTECT HEELS, ELBOWS BONY PROMINENCES WITH SKIN BERRIES OR FOAM DRESSING IF EXPOSED TO FRICTION OFFLOAD BILATERAL HEELS BY PLACING PILLOWS UNDER CALVES AT ALL TIMES, UNLESS OTHERWISE CONTRAINDICATED -PRESSURE REDISTRIBUTION SURFACE THERAPY YAEL ISOFLEX MATTRESS -NUTRITION: PLEASE FOLLOW RD RECOMMENDATIONS AND OFFER NUTRITION SUPPLEMENTS IF ORDERED. PLEASE CONTACT WOUND CARE NURSE FOR ANY QUESTION AND CHANGE OF WOUND CONDITION Addendum: 03/07/22 at 1244 by Brandie Baig RN (Grace) CORRECTION: PT. HAS NO TRACH. PT. IS ON NC .POC DISCUSSED WITH PRIMARY WENDIE MARCOS
[2022-03-07 12:00] VITALS: BP 101/50
[2022-03-07] MEDS: Z-GUARD PASTE TP SCH (12:52)
--- NOTE | 2022-03-07 13:00 | NUR ---
ALL SCHEDULED MEDS GIVEN. PT IS STABLE. NO DISTRESS NOTED. WILL CONTINUE TO MONITOR.
--- NOTE | 2022-03-07 15:00 | NUR ---
ALL SCHEDULED MEDS GIVEN. PT IS STABLE. NO DISTRESS NOTED. WILL CONTINUE TO MONITOR.
[2022-03-07 16:00] VITALS: BP 90/51
--- NOTE | 2022-03-07 16:29 | NUR ---
BLOOD GLUCOSE CHECK WAS 177. ADMINISTERED 2 UNITS OF INSULIN SQ PER MD ORDERED.
--- NOTE | 2022-03-07 19:32 | NUR ---
ENDORSED TO VALUE ENGINEER NURSE FOR CONTINUITY OF CARE. PT IS STABLE.
--- NOTE | 2022-03-07 19:51 | NUR ---
GET REPORT FROM MORNING NURSE,PATIENT IS LYING ON BED ,PATIENT IS ON O2 2LIETR VIA NASAL CANNULA. CALL LIGHT IS WITHIN THE REACH , WILL CONTINUE TO MONITOR PATIENT,
[2022-03-07 20:00] VITALS: BP 107/58
[2022-03-07] MEDS: INSULIN LANTUS 100 UNITS/ML 10 ML VIAL SUBQ SCH (21:00)
[2022-03-07] MEDS: ATORVASTATIN 20 MG TAB GT SCH (22:09)
[2022-03-07] MEDS: SENNA 8.6 MG TAB PO SCH (22:10)
[2022-03-07 22:18] LABS: BASOPHILS % (AUTO) 0.5 % (0.0-2.0); EOSINOPHILS # (AUTO) 0.1 K/uL (0-0.4); EOSINOPHILS % (AUTO) 1.2 % (0.0-4.0); HEMATOCRIT 27.7 % (36-52); HEMOGLOBIN 8.6 g/dL (12.0-18.0); LYMPHOCYTES % (AUTO) 20.1 % (20.5-51.1); MEAN CORPUSCULAR HEMOGLOBIN 28 pg (27-31); MEAN CORPUSCULAR HGB CONC 31 g/dL (33-37); MEAN CORPUSCULAR VOLUME 88.8 fL (80-94); MONOCYTES # (AUTO) 0.3 K/uL (0.8-1.0); MONOCYTES % (AUTO) 5.6 % (1.7-9.3); NEUTROPHILS # (AUTO) 3.6 K/uL (1.8-7.7); PLATELET COUNT (AUTO) 202 K/uL (140-450); RED BLOOD CELL COUNT(AUTO) 3.12 MIL/uL (4.20-6.10); RED CELL DISTRIBUTION WIDTH 16.9 % (11.6-13.7)
[2022-03-07 22:19] LABS: NEUTROPHILS % (AUTO) 72.6 % (42.2-75.2)
[2022-03-08] VITALS: BP 104/49
--- NOTE | 2022-03-08 00:30 | NUR ---
PATIENT IS LYING ON BED, VITAL SIGN IS WITHIN THE NORMAL RANGE, ORAL SUCTION DONE, ALL DUE MEDS ARE GIVEN PER DOCTOR ORDER, CALL LIGHT IS WITHIN THE REACH, VERONICALL CONTINUE TO MONITOR PATIENT.
[2022-03-08] MEDS: Z-GUARD PASTE TP SCH ×2 (01:26→13:17)
[2022-03-08] MEDS: VANCOMYCIN 1,000 MG in DEXTROSE 5% 250 ML IV SCH (02:26)
[2022-03-08 04:00] VITALS: BP 95/49
--- NOTE | 2022-03-08 04:00 | NUR ---
PATIENT IS LYING ON BED, ALL VITAL SIGN IS WITHIN THE NORMAL RANGE, ALL DUE MEDS ARE GIVEN PER DOCTOR ORDER, CALL LIGHT IS WITHIN THE REACH, WILL CONTINUE TO MONITOR PATIENT.
[2022-03-08] MEDS: guaiFENesin/CODEINE 100/10MG 5 ML UDC PO SCH ×2 (05:00→13:21)
[2022-03-08] MEDS: PHENYTOIN 100 MG/4 ML UDC GT SCH ×2 (05:50→13:21)
[2022-03-08] MEDS: MEROPENEM 500 MG in NACL 0.9% 50 ML IV SCH (05:50)
[2022-03-08 06:11] LABS: BASOPHILS % (AUTO) 0.2 % (0.0-2.0); EOSINOPHILS # (AUTO) 0.1 K/uL (0-0.4); EOSINOPHILS % (AUTO) 0.9 % (0.0-4.0); HEMATOCRIT 25.7 % (36-52); HEMOGLOBIN 8.5 g/dL (12.0-18.0); LYMPHOCYTES # (AUTO) 1.5 K/uL (2.0-11.5); LYMPHOCYTES % (AUTO) 18.1 % (20.5-51.1); MEAN CORPUSCULAR HEMOGLOBIN 29 pg (27-31); MEAN CORPUSCULAR HGB CONC 33 g/dL (33-37); MEAN CORPUSCULAR VOLUME 87.7 fL (80-94); MONOCYTES # (AUTO) 0.9 K/uL (0.8-1.0); MONOCYTES % (AUTO) 10.7 % (1.7-9.3); NEUTROPHILS # (AUTO) 5.7 K/uL (1.8-7.7); NEUTROPHILS % (AUTO) 70.1 % (42.2-75.2); PLATELET COUNT (AUTO) 196 K/uL (140-450); RED BLOOD CELL COUNT(AUTO) 2.93 MIL/uL (4.20-6.10); WHITE BLOOD COUNT (AUTO) 8.2 K/uL (4.8-10.8)
[2022-03-08 06:28] LABS: MAGNESIUM 1.9 mg/dL (1.8-2.4); PHOSPHORUS 3.6 mg/dL (2.5-4.9)
[2022-03-08 06:29] LABS: ANION GAP 8.9 (8-16); CARBON DIOXIDE 28.8 mmol/L (21-32); CREATININE 0.5 mg/dL (0.6-1.3); POTASSIUM 3.7 mmol/L (3.5-5.1)
[2022-03-08] MEDS: BLOOD GLUCOSE MONITORING 1 DEV DEV FS SCH ×3 (06:35→16:35)
[2022-03-08] MEDS: INSULIN LISPRO SLIDING SCALE 100 UNITS/ML VIAL SUBQ PRN ×3 (06:35→16:35)
--- NOTE | 2022-03-08 07:26 | NUR ---
GAVE REPORT TO NURSE GIBBS , PATIENT IS STABLE.
--- NOTE | 2022-03-08 07:30 | NUR ---
RECEIVED BEDSIDE REPORT FROM CEMENT MASON NURSE FOR CONTINUITY OF CARE. PT A&OX0 AROUSABLE TO NAME. OPEN EYES AND TRACKS NURSE. RESPIRATION IS EQUAL AND UNLABORED ON 2L 02 VIA NC. PT ON MUSEUM EXHIBIT TECHNICIAN, SINUS RHYTHM. SKIN IS WARM AND DRY, PT HAS BILATERAL DISCOLORATION TO HEELS WITH HEEL RAISER IN PACE, WELL A CLOSED SACRAL SCAR. HAS CENTRAL LINE TO R INTERNAL JUGULAR, TRIPLE LUMEN TKO. PT HAS G TUBE IN PLACE GLUCERNA INFUSING PER ORDER. MCCALLUM CATHETER IN PLACE, DRAINING YELLOW URINE BY GRAVITY. FLACC 0. PLAN OF CARE DISCUSSED. SAFETY PRECAUTIONS IN PLACE. CALL LIGHT WITHIN REACH. WILL CONTINUE TO MONITOR.
[2022-03-08 08:00] VITALS: BP 101/50
[2022-03-08] MEDS ORDERED: IV Vancomycin IV (09:47)
[2022-03-08] MEDS ORDERED: IV Meropenam IV (09:47)
[2022-03-08] MEDS: ZINC SULF 220 MG CAP GT SCH (09:50)
[2022-03-08] MEDS: MULTIVITAMIN/MINERALS 1 TAB GT SCH (09:50)
[2022-03-08] MEDS: PANTOPRAZOLE 40 MG INJ VIAL IVP SCH (09:52)
--- NOTE | 2022-03-08 09:52 | NUR ---
(03/08/22) RD FOLLOW UP COMPLETED PLEASE REFER TO NUTRITION PROGRESS NOTE UNDER CARE ACTIVITY FOR ESTIMATED NUTRITION NEEDS. RD RECOMMENDATIONS: 1. CONTINUE GLUCERNA 1.2 @ 45 ML/HR PER MD ORDER. THIS PROVIDES 1080 ML TOTAL VOLUME, 1296 KCAL, 65 GM PROTEIN, AND 869 GM PROTEIN; MEETS 71% EST KCAL NEEDS AND 70% UPPER-END PROTEIN NEEDS. PT RECEIVES DOMONIQUE BID FOR SUPPLEMENTATION. -FWF: 150 ML Q6H 2. CONTINUE DOMONIQUE BID PER RD PROTOCOL -WITH DOMONIQUE BID, PT WILL RECEIVE 78% OF ESTIMATED KCAL AND 100% OF ESTIMATED PROTEIN NEEDS; ADEQUATE 3. MONITOR BLOOD GLUCOSE LEVELS 4. RD TO FOLLOW-UP 2-3 DAYS, HIGH RISK MIS POTTER, MS, RDN
[2022-03-08] MEDS: DOCUSATE 100 MG/10 ML UDC GT SCH (09:55)
[2022-03-08] MEDS: ASCORBIC ACID 500 MG/5 ML ORASYR GT SCH (09:56)
[2022-03-08] MEDS: CYANOCOBALAMIN 100 MCG TAB GT SCH (09:56)
[2022-03-08] MEDS: VITAMIN D 400 IU TAB GT SCH (09:56)
--- NOTE | 2022-03-08 10:00 | NUR ---
ALL SCHEDULED MEDS GIVEN. PT IS STABLE. NO DISTRESS NOTED. WILL CONTINUE TO MONITOR.
[2022-03-08 12:00] VITALS: BP 95/40
--- NOTE | 2022-03-08 12:52 | NUR ---
SPOKE TO MIKA SALDAÑA FROM [facility]. TRANSPORTATION IS SETUP FOR PATIENT TO BE TRANSPORTED BACK TO [facility] [place] PICKUP TIME IS AT 1500.
[2022-03-08] MEDS ORDERED: MEROPENEM 1,000 MG in NACL 0.9% 50 ML IV SCH (13:00)
--- NOTE | 2022-03-08 14:50 | NUR ---
CONTACTED [facility] AND ENDORSED PATIENT REPORT TO BRI STOUT. NOTIFIED THEM THAT ETA WILL BE AT 1500. PATIENT WILL BE GOING TO ROOM [address] UNDER DR. ALEXANDER.
--- NOTE | 2022-03-08 15:17 | NUR ---
RECEIVED A CALL FROM [facility] IN REGARDS TO TRANSPORTATION. WILL RECEIVE ANOTHER CALL FROM THE TRANSPORTATION [employer] FOR ETA
[2022-03-08 15:19] VITALS: BP 95/40
[2022-03-08 16:00] VITALS: BP 97/48
--- NOTE | 2022-03-08 16:45 | NUR ---
REMOVED MCCALLUM CATHETER.
--- NOTE | 2022-03-08 18:03 | NUR ---
[facility] AT PATIENT'S BEDSIDE PREPARING PATIENT TO TRANSFER PATIENT TO [facility]. PT WILL GOING TO ROOM [address] UNDER DR. ALEXANDER.
--- NOTE | 2022-03-08 18:29 | NUR ---
PATIENT DISCHARGED OFF THE UNIT. PT LEFT WITH RIGHT CENTRAL IJ. SALINE LOCKED AND ON 2L NC. PT WAS STABLE PRIOR TO DISCHARGE.
== END 2022-03-08 18:30 | DRG 871 ==
LOC: MED 21:46 → MTU 03-04 03:15 → MIC 03-04 04:19 → MTU 03-06 16:45
PROC: 5A0935A Assistance with Respiratory Ventilation, Less than 24 Consecutive Hours, High Flow/Velocity Cannula (ICD-10-PCS; principal; 2022-03-04)
PROC: 02H633Z Insertion of Infusion Device into Right Atrium, Percutaneous Approach (ICD-10-PCS; 2022-03-04)
PROC: B548ZZA Ultrasonography of Superior Vena Cava, Guidance (ICD-10-PCS; 2022-03-04)
DX: A41.9 Sepsis, unspecified organism (principal); R65.21 Severe sepsis with septic shock; J18.9 Pneumonia, unspecified organism; I21.4 Non-ST elevation (NSTEMI) myocardial infarction; E87.0 Hyperosmolality and hypernatremia; J44.0 Chronic obstructive pulmonary disease with (acute) lower respiratory infection; N17.9 Acute kidney failure, unspecified; N39.0 Urinary tract infection, site not specified; E87.6 Hypokalemia; K21.9 Gastro-esophageal reflux disease without esophagitis; E03.9 Hypothyroidism, unspecified; E78.5 Hyperlipidemia, unspecified; I25.10 Atherosclerotic heart disease of native coronary artery without angina pectoris; G40.909 Epilepsy, unspecified, not intractable, without status epilepticus; E11.65 Type 2 diabetes mellitus with hyperglycemia; E87.8 Other disorders of electrolyte and fluid balance, not elsewhere classified; R13.10 Dysphagia, unspecified; F01.50 Vascular dementia, unspecified severity, without behavioral disturbance, psychotic disturbance, mood disturbance, and anxiety; Z20.822 Contact with and (suspected) exposure to COVID-19; Z93.1 Gastrostomy status; Z88.8 Allergy status to other drugs, medicaments and biological substances; Z79.899 Other long term (current) drug therapy; I69.320 Aphasia following cerebral infarction; Z79.82 Long term (current) use of aspirin; Z79.4 Long term (current) use of insulin
CPT/HCPCS: 36415; 36600; 70450; 71045; 80048; 80053; 80202; 81001; 82550; 82803; 82948; 83605; 83735; 83880; 84100; 84484; 85025; 85610; 85730; 87040; 87081; 87086; 87186; 96361; 96365; 99291; C9113; J1644; J1815; J2185; J2543; J3370; J3490; J7030; J7060; Q0092

== ENCOUNTER 2022-08-23 10:43 | Inpatient (IN) | payer MEDICARE, OTHER ==
[~2022-08-23] VITALS: Ht 152.4 cm; Wt 59.0 kg
[~2022-08-23 10:43] MED LIST changes: -ALBU0.0912 IH; -ALBU3SOL83 IH; -ASPI-1822 GT; -CARV3.12 GT; +CRAN450T5 GT; -FURO-572 GT; -HUMSLIDE SUBQ; +IV Meropenam IV; +IV Vancomycin IV; -LACT10CA PO; -LACT10SO11 GT; -LANS30EC68 GT; -LISI2.5T12 GT; +MAG10ORA GT; -METO5SOL20 GT; +MOM GT; -MULT9LIQ2 GT; +OMEP40EC23 PO; -PHOS1PDR4 GT; -PRO5 PEG; -REGULAR INSULIN SUBQ; -ROB1 GT; +SENN-73 PO; -SUCR1TAB56 PEG; +VITB12 GT; +ZINC50TA76 GT; -[UNRECOGNIZED DRUG - CODE] GT
[2022-08-23 10:45] VITALS: BP 124/72
--- NOTE | 2022-08-23 10:56 | NUR ---
[facility] TO ER BED 1
[2022-08-23] MEDS ORDERED: NACL 0.9% 1,500 ML IV SCH (11:10)
[2022-08-23] MEDS ORDERED: cefTRIAXone 1,000 MG in DEXT 5% MINI-BAG PLUS 50 ML IV ONE (11:10)
[2022-08-23] MEDS ORDERED: cefTRIAXone 1,000 MG VIAL ONE (12:30)
[2022-08-23 13:05] LABS: BASOPHILS # (AUTO) 0.1 K/uL (0.00-0.22); EOSINOPHILS # (AUTO) 0.1 K/uL (0-0.4); HEMOGLOBIN 12.9 g/dL (12.0-18.0); MEAN CORPUSCULAR HGB CONC 32 g/dL (33-37); WHITE BLOOD COUNT (AUTO) 18.6 K/uL (4.8-10.8)
[2022-08-23 13:06] LABS: APPEARANCE,URINE HAZY (CLEAR); BILIRUBIN,URINE NEGATIVE (NEGATIVE); BLOOD, URINE 3+ (NEGATIVE); COLOR,URINE YELLOW (YELLOW); LEUKOCYTE ESTERASE ,URINE 2+ (NEGATIVE); NITRITE, URINE NEGATIVE (NEGATIVE); UGLUCOSE NEGATIVE (NEGATIVE)
[2022-08-23 13:13] LABS: BASOPHILS % (AUTO) 0.4 % (0.0-2.0); EOSINOPHILS % (AUTO) 0.7 % (0.0-4.0); HEMATOCRIT 39.6 % (36-52); MEAN CORPUSCULAR HEMOGLOBIN 29 pg (27-31); MEAN CORPUSCULAR VOLUME 89.1 fL (80-94); MONOCYTES % (AUTO) 10.9 % (1.7-9.3); NEUTROPHILS # (AUTO) 14.3 K/uL (1.8-7.7); PLATELET COUNT (AUTO) 187 K/uL (140-450); RED BLOOD CELL COUNT(AUTO) 4.45 MIL/uL (4.20-6.10); RED CELL DISTRIBUTION WIDTH 16.3 % (11.6-13.7)
[2022-08-23 13:22] LABS: ALBUMIN 2.2 g/dL (3.4-5.0); ANION GAP 10.7 (8-16); CARBON DIOXIDE 30.6 mmol/L (21-32); CREATININE 0.9 mg/dL (0.6-1.3); POTASSIUM 4.3 mmol/L (3.5-5.1); TOTAL BILIRUBIN 0.2 mg/dL (0.0-1.0)
[2022-08-23 13:29] LABS: RBC,URINE 50-80 /HPF (0-5)
[2022-08-23] MEDS ORDERED: AZITHROMYCIN 500 MG in DEXTROSE 5% 250 ML IV ONE (14:20)
--- NOTE | 2022-08-23 14:26 | NUR ---
pt sleeping, no ac distress, o2 sat 90-93% at 6 l/m via nc, sr on cm, sr up times 2
[2022-08-23] MEDS ORDERED: AZITHROMYCIN 500 MG INJ VIAL IV ONE (14:28)
--- NOTE | 2022-08-23 14:35 | NUR ---
REVIEWED WITH DR. MEDINA PATIENT PULMONARY STATUS; SATURATION 85% ON SUPPLEMENTAL OXYGEN AT 6 LPM VIA NC; PLAN: NASOTRACHEAL SUCTION; OBTAIN SPUTUM SAMPLE; PLACE ON HIGH FLOW NASAL CANNULA
--- NOTE | 2022-08-23 14:45 | NUR ---
PRIOR TO NASOTRACHEAL SUCTION REMOVED FROM NASAL CANNUILA PLACED ON A NON REBREATHER WITH ASCENDOING SATURATION TO 95%; USING A STERILE TECHNIQUE APPLIED LUBRICANT TO THE DISTAL END OF A 14 FR SUCTION CATHETER INSERTED INTO RIGHT NASAL SEPTUM PAST EPIGLOTTIS INTO TRACHEA X 2 OBTAINED COPIOUS SEMI THICK TO THIN YELLOW/GREEN SECRETIONS AIRWAY PATENT TOLERATED PROCEDURE WELL WITHOUT ADVERSE REACTIONS NOTED
[2022-08-23 14:48] VITALS: BP 119/61
[2022-08-23] MEDS ORDERED: ALBUTEROL 0.083% 2.5 MG/3 ML NEBU INH PRN (15:30)
[2022-08-23] MEDS ORDERED: POTASSIUM CHLORIDE 10 MEQ TABER PO PRN (15:35)
[2022-08-23] MEDS ORDERED: DOCUSATE SODIUM 100 MG GELCAP PO PRN (15:35)
[2022-08-23] MEDS ORDERED: ACETAMINOPHEN 325 MG TAB PO PRN (15:35)
[2022-08-23] MEDS ORDERED: PHENYTOIN 100 MG/2 ML VIAL IVP ONE (15:35)
[2022-08-23] MEDS ORDERED: MAG SULF 2000 MG/WATER PREMIX 50 ML IV PRN (15:35)
[2022-08-23] MEDS ORDERED: LORazepam 2 MG/ML VIAL IVP PRN (15:35)
[2022-08-23] MEDS ORDERED: ONDANSETRON 4 MG/2 ML VIAL IVP PRN (15:35)
[2022-08-23] MEDS ORDERED: MORPHINE SULFATE 2 MG/ML SYR IVP PRN (15:35)
[2022-08-23] MEDS ORDERED: ZOLPIDEM 10 MG TAB PO PRN (15:35)
[2022-08-23] MEDS ORDERED: MAGNESIUM HYDROXIDE 2400 MG/30 ML UDC GT SCH (15:35)
--- NOTE | 2022-08-23 17:49 | NUR ---
pt sleeping, no ac distress, o2 sat 99at high flow o2, sl patent rw, sr up times 2
--- NOTE | 2022-08-23 18:57 | NUR ---
verbal consent over the phone for picc line obtained, spoke to pt's , Kerline, then his son Niranjan called, consented as well
--- NOTE | 2022-08-23 19:45 | NUR ---
ASSUMED CARE AT THIS TIME. PT A&O X4. UNABLE TO EXPRESS NEEDS AND OPEN EYES AT THIS TIME. HIGH FLOW AT 40L/MIN AND 100% 02. PT IS WITH G TUBE. SALINE LOCK TO RIGHT HAND. SR TO BEDSIDE MONITOR. NO S/SX OF PAIN. FLACC 0.
[2022-08-23] MEDS ORDERED: CRUSHER, PILL MC ONE (20:37)
[2022-08-23] MEDS: SENNA 8.6 MG TAB PO SCH (20:40)
[2022-08-23] MEDS: PHENYTOIN 100 MG CAPER PO SCH (20:40)
[2022-08-23] MEDS: DOCUSATE 100 MG/10 ML UDC GT SCH (20:40)
[2022-08-23] MEDS: ATORVASTATIN 20 MG TAB GT SCH (20:40)
[2022-08-23] MEDS ORDERED: PIPERACILLIN/TAZOBACTAM 2.25 GM in DEXTROSE 5% 50 ML IV SCH (21:00)
--- NOTE | 2022-08-23 21:10 | NUR ---
PT TRANSPORTED TO CT AND BACK TO ED 1 W/ NO ADVERSE EVENTS PT TOLERATED TRANSPORT WELL PT REMAINS ON HFNC 40L 100% WILL TITRATE TOLERATED AND CONTINUE TO MONITOR
--- NOTE | 2022-08-23 21:10 | NUR ---
CT SCAN DONE.
[2022-08-23 21:11] VITALS: BP 110/42
--- NOTE | 2022-08-23 21:29 | NUR ---
Texted PICC RN [phone] for PICC order; waiting for PICC RN text back
[2022-08-23] MEDS ORDERED: PIPERACILLIN/TAZOBACTAM 3.375 GM VIAL IV ONE (22:08)
[2022-08-23] MEDS: PIPERACILLIN/TAZOBACTAM 3.375 GM in DEXTROSE 5% 50 ML IV SCH (22:17)
[2022-08-23] MEDS ORDERED: VANCOMYCIN PER PHARMACY MC PRN (22:30)
--- NOTE | 2022-08-23 22:50 | NUR ---
DR. FAUSTIN CALLED FOR PT UPDATE. NO NEW ORDERS.
[2022-08-23] MEDS ORDERED: VANCOMYCIN 1GM/DEXT 5% PREMIX 200 ML IV SCH (23:15)
[2022-08-23 23:22] VITALS: BP 103/46
--- NOTE | 2022-08-24 02:48 | NUR ---
FIO2 TITRATED TO 90% PT JOELLE WELL AT THIS TIME W/ SPO2 99% 10 MIN POST TITRATION RN AT BEDSIDE
--- NOTE | 2022-08-24 04:32 | NUR ---
PT HAS BEEN TITRATED AND MONITORED CURRENT HF SETTINGS ARE 32L 46% W/ SPO2 95% 15MIN POST TITRATION
[2022-08-24] MEDS ORDERED: PIPERACILLIN/TAZOBACTAM 3.375 GM VIAL IV ONE (04:34)
[2022-08-24 04:39] VITALS: BP 121/47
[2022-08-24] MEDS: PIPERACILLIN/TAZOBACTAM 3.375 GM in DEXTROSE 5% 50 ML IV SCH ×4 (04:46→21:30)
[2022-08-24] MEDS: PHENYTOIN 100 MG CAPER PO SCH ×3 (04:46→21:53)
--- NOTE | 2022-08-24 06:47 | NUR ---
RECEIVED PATIENT TO [facility] FROM ER VIA GURNEY WITH NON REBREATHER MASK. NO S/S OF SOB. BREATHING NORMAL. ALL SAFETY PRECAUTIONS ARE IN PLACE. BED WHEELS LOCKED. CALL LIGHT WITHIN REACH.
[2022-08-24 08:57] LABS: ANION GAP 10.4 (8-16); CARBON DIOXIDE 31.3 mmol/L (21-32); CREATININE 0.6 mg/dL (0.6-1.3); POTASSIUM 3.7 mmol/L (3.5-5.1)
[2022-08-24] MEDS ORDERED: DEXAMETHASONE 4 MG/ML VIAL IVP SCH (09:00)
[2022-08-24] MEDS: ASCORBIC ACID 500 MG/5 ML ORASYR GT SCH (09:00)
[2022-08-24] MEDS: CHOLECALCIFEROL 1,000 IU TAB PO SCH (09:00)
[2022-08-24 09:08] LABS: BASOPHILS % (AUTO) 0.2 % (0.0-2.0); EOSINOPHILS % (AUTO) 0.2 % (0.0-4.0); HEMOGLOBIN 11.1 g/dL (12.0-18.0); LYMPHOCYTES # (AUTO) 2.2 K/uL (2.0-11.5); LYMPHOCYTES % (AUTO) 17.8 % (20.5-51.1); MEAN CORPUSCULAR HEMOGLOBIN 29 pg (27-31); MEAN CORPUSCULAR HGB CONC 32 g/dL (33-37); MEAN CORPUSCULAR VOLUME 90.7 fL (80-94); MONOCYTES # (AUTO) 1.4 K/uL (0.8-1.0); MONOCYTES % (AUTO) 11.7 % (1.7-9.3); NEUTROPHILS # (AUTO) 8.5 K/uL (1.8-7.7); NEUTROPHILS % (AUTO) 70.1 % (42.2-75.2); PLATELET COUNT (AUTO) 137 K/uL (140-450); RED BLOOD CELL COUNT(AUTO) 3.86 MIL/uL (4.20-6.10); RED CELL DISTRIBUTION WIDTH 16.5 % (11.6-13.7); WHITE BLOOD COUNT (AUTO) 12.1 K/uL (4.8-10.8)
[2022-08-24] MEDS ORDERED: VANCOMYCIN 750 MG in NACL 0.9% 250 ML IV SCH (10:00)
[2022-08-24] MEDS: PANTOPRAZOLE 40 MG INJ VIAL IVP SCH (10:21)
[2022-08-24] MEDS: VANCOMYCIN 750 MG in DEXTROSE 5% 250 ML IV SCH ×2 (10:22→22:36)
[2022-08-24] MEDS ORDERED: MAGNESIUM HYDROXIDE 2400 MG/30 ML UDC GT PRN (10:41)
--- NOTE | 2022-08-24 19:30 | NUR ---
RECEIVED REPORT FROM DAY SHIFT NURSE WEI FOR CONTINUITY OF CARE. PATIENT IS STABLE. PATIENT IS A&O X0. PATIENT IS ON BUBBLER AT 10L, BREATHING IS NORMAL WITH SYMMETRICAL RISE AND FALL OF CHEST. PATIENT'S IV IS A PICC LINE DOUBLE LUMEN, NO FLUIDS RUNNING AT THIS TIME (SALINE LOCKED). PATIENT IS LYING IN BED, BOOTS FOR PRESSURE RELIEF ON BOTH HEELS OF FEET. WILL CONTINUE TO OBSERVE PATIENT.
[2022-08-24 20:00] VITALS: BP 142/61
[2022-08-24] MEDS ORDERED: CRUSHER, PILL MC ONE (21:26)
[2022-08-24] MEDS: SENNA 8.6 MG TAB PO SCH (21:53)
[2022-08-24] MEDS: DOCUSATE 100 MG/10 ML UDC GT SCH (21:54)
[2022-08-24] MEDS: ATORVASTATIN 20 MG TAB GT SCH (21:54)
--- NOTE | 2022-08-24 22:00 | NUR ---
OBTAINED 2000 VITALS. VITALS WERE: BP142/61, HR 75, O2 100, RR 18, TEMP 96.2. ADMINISTERED 2100 MEDICATIONS TO PATIENT. MEDICATION WAS GIVEN THROUGH G-TUBE. PATIENT TOLERATED FEEDING WELL. IVPB ZOSYN ALSO GIVEN. NEW PRIMARY IV LINE WAS HUNG AND SECONDARY TUBING FOR IVPB. BREATHING IS NORMAL WITH SYMMETRICAL RISE AND FALL OF CHEST. WILL CONTINUE TO OBSERVE PATIENT.
--- NOTE | 2022-08-24 22:45 | NUR ---
STARTED PATIENT'S VANCOMYCIN. TROPH LEVEL WAS DRAWN AT 1999, TROPH WAS 9.0. MEDICATION WAS APPROPRIATE TO GIVE. PATIENT TOLERATED MEDICATION WELL. WILL CONTINUE TO OBSERVE.
--- NOTE | 2022-08-24 23:30 | NUR ---
SETUP PATIENT'S FEEDING PUMP AND STARTED FEEDING. PUMP RUNNING AF 1.2 @ 10ML/HR WITH WATER FLUSH 50ML Q 4HR. PATIENT IS TOLERATING FEEDING WELL. UPON ENTERING THE ROOM, PATIENT'S O2 WAS 88; PATIENT HAD REMOVED O2 FROM NARES. PLACED O2 BACK AND PATIENT O2 STARTED GOING BACK UP. PATIENT BEGAN RUBBING NOSE PUSHING O2 OFF. PLACED PAPER TAPE OVER TUBING TO HELP SECURE AROUND PATIENT'S NOSE. WILL CONTINUE TO OBSERVE PATIENT.
[2022-08-25] VITALS: BP 130/59
--- NOTE | 2022-08-25 00:45 | NUR ---
OBTAINED 0000 VITALS. VITALS WERE: TEMP 96.3, HR 74, BP 130/59, O2 96, RR 18. PATIENT IS LYING IN BED. PATIENT WAS READJUSTED BY REPOSITIONING THE PILLOWS AROUND HIM. PATIENT TOLERATED REPOSITIONING WELL. WILL CONTINUE TO OBSERVE PATIENT.
[2022-08-25 04:00] VITALS: BP 153/56
[2022-08-25] MEDS: PIPERACILLIN/TAZOBACTAM 3.375 GM in DEXTROSE 5% 50 ML IV SCH ×3 (04:06→15:29)
--- NOTE | 2022-08-25 04:10 | NUR ---
OBTAINED 0400 VITALS. VITALS WERE: TEMP 96.3, HR 65, BP 153/56, O2 100, RR 18.
--- NOTE | 2022-08-25 04:10 | NUR ---
ADMINISTERED ZOSYN IVPB TO PATIENT. PATIENT IS BREATHING WELL ON BUBBLER WITH SYMMETRICAL RISE AND FALL OF CHEST. WILL CONTINUE TO OBSERVE PATIENT.
[2022-08-25] MEDS ORDERED: HYDRAGUARD CREAM TP ONE (04:56)
--- NOTE | 2022-08-25 05:30 | NUR ---
PATIENT HAD VOIDED AND WAS CHANGED WITH THE ASSISTANCE OF WENDIE NUR. THERE WAS NO BM. PATIENT HAS TWO PRESSURE WOUNDS ON BUTTOCKS (ONE ON UPPER LEFT, OTHER ON UPPER RIGHT). WOUNDS HAD SOME BLOOD COMING FROM THEM. APPLIED CLEANED WOUND, APPLIED HYDROGEL TO AREA, APPLIED HEART SHAPED FOAM BANDAGE OVER WOUNDS. PATIENT TOLERATED CHANGE WELL. WILL CONTINUE TO OBSERVE PATIENT.
[2022-08-25] MEDS: PHENYTOIN 100 MG CAPER PO SCH ×3 (05:45→21:25)
--- NOTE | 2022-08-25 06:00 | NUR ---
GAVE PATIENT DILANTIN VIA G-TUBE. MEDICATION WAS ADMINISTERED SUCCESSFULLY WITHOUT ANY ISSUES. PATIENT IS LYING IN BED, PATIENT HAS NOT VOIDED AGAIN AND DOES NOT REQUIRE ANOTHER CHANGING. WILL CONTINUE TO OBSERVE PATIENT.
[2022-08-25 07:17] LABS: BASOPHILS % (AUTO) 0.3 % (0.0-2.0); EOSINOPHILS % (AUTO) 0.7 % (0.0-4.0); HEMATOCRIT 32.1 % (36-52); HEMOGLOBIN 10.3 g/dL (12.0-18.0); LYMPHOCYTES # (AUTO) 1.2 K/uL (2.0-11.5); LYMPHOCYTES % (AUTO) 18.9 % (20.5-51.1); MEAN CORPUSCULAR HEMOGLOBIN 29 pg (27-31); MEAN CORPUSCULAR HGB CONC 32 g/dL (33-37); MEAN CORPUSCULAR VOLUME 89.5 fL (80-94); MONOCYTES # (AUTO) 0.5 K/uL (0.8-1.0); MONOCYTES % (AUTO) 7.4 % (1.7-9.3); NEUTROPHILS # (AUTO) 4.6 K/uL (1.8-7.7); NEUTROPHILS % (AUTO) 72.7 % (42.2-75.2); PLATELET COUNT (AUTO) 123 K/uL (140-450); RED BLOOD CELL COUNT(AUTO) 3.59 MIL/uL (4.20-6.10); RED CELL DISTRIBUTION WIDTH 15.8 % (11.6-13.7); WHITE BLOOD COUNT (AUTO) 6.3 K/uL (4.8-10.8)
[2022-08-25 07:25] LABS: ANION GAP 8.2 (8-16); CREATININE 0.5 mg/dL (0.6-1.3); POTASSIUM 3.2 mmol/L (3.5-5.1)
--- NOTE | 2022-08-25 07:28 | NUR ---
RECEIVED REPORT FROM BOX CAR LOADER NURSE MALLORY FOR CONTINUITY OF CARE. PATIENT ASLEEP NO DISTRESS NOTED. RESPIRATION EVEN AND NOT LABORED NO SHORTNESS OF BREATH ON OXYGEN BUBBLER AT 10L/MIN. PICC LINE DOUBLE LUMEN ON RIGHT UPPER ARM RUNNING TKO. ON GT FEEDING AT 10 CC/HOUR WITH WATER FLUSH OF 50 CC EVERY 4 HOUR. ALL SAFETY MEASURE IN PLACE.
--- NOTE | 2022-08-25 07:30 | NUR ---
ENDORSED CONTINUITY OF CARE DAY SHIFT NURSE OSKAR. PATIENT IS STABLE.
[2022-08-25 08:00] VITALS: BP 136/57
[2022-08-25] MEDS ORDERED: DEXTROSE 5% 1,000 ML IV ONE (08:00)
[2022-08-25] MEDS: PANTOPRAZOLE 40 MG INJ VIAL IVP SCH (09:00)
[2022-08-25] MEDS ORDERED: DEXAMETHASONE 10 MG/ML VIAL IVP SCH (09:00)
[2022-08-25] MEDS: CHOLECALCIFEROL 1,000 IU TAB PO SCH (09:23)
[2022-08-25] MEDS: ASCORBIC ACID 500 MG/5 ML ORASYR GT SCH (09:23)
--- NOTE | 2022-08-25 09:47 | NUR ---
PATIENT GIVEN DUE MEDICATION TOLERATED WELL. HEAD OF BED ELEVATED FOR ASPIRATION PRECAUTION.
--- NOTE | 2022-08-25 10:29 | NUR ---
DC PLANNING: FAXED THE REQUEST FOR STABLE FOR TRANSFER TO [facility] [phone]. CM TO FOLLOW Addendum: 08/25/22 at 1433 by Lilli Reeves RN DC PLANNING: RECEIVED A CALL FROM [facility] SPOKE WITH DOREEN STATED IF O2 IS 6L WILL TAKE PATIENT. CURRENTLY PATIENT IS ON SATING 90% CM TO FOLLOW.
[2022-08-25] MEDS ORDERED: VANCOMYCIN 1,000 MG in DEXTROSE 5% 250 ML IV SCH (11:00)
--- NOTE | 2022-08-25 11:03 | NUR ---
PATIENT HAS BEEN SCREENED AND CATEGORIZED HIGH NUTRITION RISK. PATIENT WILL BE SEEN WITHIN 1-2 DAYS OF ADMISSION. 08/23/22-08/25/22 REVIEWED BY ALEXUS AMEZQUITA RD
--- NOTE | 2022-08-25 11:39 | NUR ---
PATIENT ASLEEP IV ANTIBIOTIC INFUSING NO ADVERSE REACTION NOTED. NO EPISODE OF SEIZURE. ON DROPLET ISOLATION.
[2022-08-25 13:00] VITALS: BP 132/50
--- NOTE | 2022-08-25 13:19 | NUR ---
RECEIVED CALL FROM [facility] THAT PATIENT IS GOING TO TRANSFER TO [facility]. SOON I HANG UP TANISHA FROM [facility] CALL AND CONFIRMING THAT PATIENT IS GOING TO BE TRANSFER THERE SOON THEY HAVE ROOM NUMBER AND FAMILY AGREED. I CALLED CHEPE THE SON TO INFORM THE IMPENDING TRANSFER AND WE WILL CALL IF WE HAVE THE TIME AND ROOM NUMBER.
--- NOTE | 2022-08-25 13:43 | NUR ---
GIVEN HIS DILANTIN ORDERED TOLERATED WELL. TREATMENT DONE ON HIS COCCYX. REPOSITION PATIENT. NOTED WITH OCCASIONAL COUGH SUCTION NEEDED OBTAINED WHITE SECRETION. ALL SAFETY MEASURE IN PLACE.
[2022-08-25] MEDS ORDERED: POTASSIUM CHLORIDE 20% 40 MEQ/15 ML UDC GT PRN (13:50)
--- NOTE | 2022-08-25 14:35 | NUR ---
PATIENT O2 TITRATE TO 6 LITER AND PATIENT STILL SATURATING AT 99 % AND PUT IT DOWN TO 4L/MIN VIA NASAL CANULA STILL SATURATING AT 99%
[2022-08-25 15:00] VITALS: BP 115/56
--- NOTE | 2022-08-25 15:52 | NUR ---
08/25/22 RD INITIAL ASSESSMENT COMPLETED PLEASE REFER TO NUTRITION ASSESSMENT UNDER CARE ACTIVITY FOR ESTIMATED NUTRITIONAL NEEDS. 1. RECOMMEND GLUCERNA 1.2 @ 55 ML/HR WITH PROSOURCE BID -FWF: 200 ML Q6H OR PER MD -START AT 20 ML/HR AND INCREASE BY 20 ML Q4H TOLERATED -WILL PROVIDE 96% ESTIMATED KCAL NEEDS AND 100% ESTIMATED PROTEIN NEEDS; ADEQUATE 2. RD TO FOLLOW-UP 3-5 DAYS, MODERATE RISK ALEXUS AMEZQUITA RD
--- NOTE | 2022-08-25 18:35 | NUR ---
PATIENT AWAKE NO DISTRESS NOTED. REPOSITION AND CHANGE KEEP HEAD OF BED ELEVATED FOR ASPIRATION PRECAUTION.NO FEVER OR CHILLS O2 SAT AT 94% AT 2L/MIN VIA NASAL CANULA WITH OCCASIONAL COUGH SUCTION PRN NOTED SCANT SPUTUM. ALL SAFETY MEASURE IN PLACE. CHART IS COPIED AND ORDERED CD COPY WAITING FOR CALL FROM [facility] FOR ROOM NUMBER.
--- NOTE | 2022-08-25 19:20 | NUR ---
GAVE REPORT TO [facility] CONSULTANT NILAM FOR CONTINUITY OF CARE.
[2022-08-25 20:00] VITALS: BP 100/42
--- NOTE | 2022-08-25 21:19 | NUR ---
GET THE REPORT FROM MORNING NURSE, PATIENT IS LYING ON BED, PATIENT IS ALERT ORIENTED X1, NO ANY RESPIRATORY DISTRESS NOTED AT THIS TIME, CALL LIGHT IS WITHIN THE REACH, WILL CONTINUE TO MONITOR PATIENT.
--- NOTE | 2022-08-25 21:21 | NUR ---
PATIENT IS LYING ON BED, NO ANY COMPLAIN OF PAIN OR SOB AT THIS TIME, ALL SCHEDULE MEDICATION IS GIVEN PER DOCTOR ORDER, CALL LIGHT IS WITHIN THE REACH, WILL CONTINUE TO MONITOR PATIENT.
--- NOTE | 2022-08-25 21:22 | NUR ---
PATIENT IS SCHEDULE TO TRANSFER TO [facility], GAVE REPORT TO JU FOR ROOM 545 IN . PATIENT NEONATAL NURSE PRACTITIONER TIME IS 9;45PM , WILL CONTINUE TO MONITOR PATIENT.
[2022-08-25] MEDS: DOCUSATE 100 MG/10 ML UDC GT SCH (21:25)
[2022-08-25] MEDS: ATORVASTATIN 20 MG TAB GT SCH (21:25)
[2022-08-25] MEDS: SENNA 8.6 MG TAB PO SCH (21:26)
--- NOTE | 2022-08-25 21:59 | NUR ---
PATIENT IS PICKUP AT 9:55 BY [facility] WITH C. LUKTAVIR, PATIENT IS STABLE, VITAL SIGN IS WITHIN THE NORMAL RANGE.
--- NOTE | 2022-08-27 08:43 | NUR ---
LATE ENTRY- CEFTRIAXONE IV AND NS IV DISCONTINUED AT 0645.
== END 2022-08-25 21:55 | disposition short-term general hospital (02) | DRG 871 ==
LOC: MED 10:43 → MTU 15:32
PROVIDERS: ADMIT Family Medicine; ATTEND Family Medicine
PROC: 5A0935A Assistance with Respiratory Ventilation, Less than 24 Consecutive Hours, High Flow/Velocity Cannula (ICD-10-PCS; principal; 2022-08-23)
PROC: 5A0935A Assistance with Respiratory Ventilation, Less than 24 Consecutive Hours, High Flow/Velocity Cannula (ICD-10-PCS; 2022-08-24)
PROC: 05HY33Z Insertion of Infusion Device into Upper Vein, Percutaneous Approach (ICD-10-PCS; 2022-08-24)
DX: A41.89 Other specified sepsis (principal); G82.50 Quadriplegia, unspecified; U07.1 COVID-19; J12.82 Pneumonia due to coronavirus disease 2019; J96.01 Acute respiratory failure with hypoxia; J18.9 Pneumonia, unspecified organism; E87.1 Hypo-osmolality and hyponatremia; J44.0 Chronic obstructive pulmonary disease with (acute) lower respiratory infection; N12 Tubulo-interstitial nephritis, not specified as acute or chronic; E03.9 Hypothyroidism, unspecified; G40.909 Epilepsy, unspecified, not intractable, without status epilepticus; E78.5 Hyperlipidemia, unspecified; F03.90 Unspecified dementia, unspecified severity, without behavioral disturbance, psychotic disturbance, mood disturbance, and anxiety; E11.9 Type 2 diabetes mellitus without complications; I11.0 Hypertensive heart disease with heart failure; I50.9 Heart failure, unspecified; E86.0 Dehydration; K21.9 Gastro-esophageal reflux disease without esophagitis; I25.10 Atherosclerotic heart disease of native coronary artery without angina pectoris; Z86.73 Personal history of transient ischemic attack (TIA), and cerebral infarction without residual deficits; Z93.1 Gastrostomy status; Z88.8 Allergy status to other drugs, medicaments and biological substances; I25.2 Old myocardial infarction; Y95 Nosocomial condition
CPT/HCPCS: 36415; 36556; 36600; 70450; 71045; 71275; 80048; 80053; 80202; 81001; 82553; 82803; 83605; 83735; 83880; 84484; 85025; 87040; 87070; 87081; 87086; 87205; 89220; 96361; 96365; 96367; 99291; C9113; J0456; J0696; J1100; J1644; J2543; J3370; J7030; J7060; Q0092; Q9967

== ENCOUNTER 2023-08-06 01:50 | Emergency (ER) | payer MEDICARE, OTHER ==
[~2023-08-06] VITALS: Ht 175.3 cm; Wt 81.6 kg
[2023-08-06 01:50] VITALS: BP 113/52; PULSE 99; RESP 24; TEMP 97.8; O2SAT 91
[2023-08-06] MEDS ORDERED: cefTRIAXone 1,000 MG in DEXT 5% MINI-BAG PLUS 50 ML IV ONE (02:00)
[2023-08-06] MEDS ORDERED: cefTRIAXone 1,000 MG VIAL ONE (02:22)
[2023-08-06 02:37] LABS: BASOPHILS % (AUTO) 0.2 % (0.0-2.0); EOSINOPHILS # (AUTO) 0.1 K/uL (0-0.4); EOSINOPHILS % (AUTO) 0.4 % (0.0-4.0); HEMATOCRIT 39.2 % (36-52); HEMOGLOBIN 12.5 g/dL (12.0-18.0); LYMPHOCYTES # (AUTO) 2.5 K/uL (2.0-11.5); LYMPHOCYTES % (AUTO) 16.6 % (20.5-51.1); MEAN CORPUSCULAR HEMOGLOBIN 27 pg (27-31); MEAN CORPUSCULAR HGB CONC 32 g/dL (33-37); MEAN CORPUSCULAR VOLUME 85.6 fL (80-94); MONOCYTES # (AUTO) 1.3 K/uL (0.8-1.0); MONOCYTES % (AUTO) 8.6 % (1.7-9.3); NEUTROPHILS % (AUTO) 74.2 % (42.2-75.2); PLATELET COUNT (AUTO) 172 K/uL (140-450); RED BLOOD CELL COUNT(AUTO) 4.58 MIL/uL (4.20-6.10); RED CELL DISTRIBUTION WIDTH 16.5 % (11.6-13.7); WHITE BLOOD COUNT (AUTO) 14.8 K/uL (4.8-10.8)
[2023-08-06 02:50] LABS: FLU A ANTIGEN negative (NEGATIVE); FLU B ANTIGEN NEGATIVE (NEGATIVE)
[2023-08-06 03:00] LABS: ALBUMIN 2.2 g/dL (3.4-5.0); ANION GAP 9.3 (8-16); CALCIUM 9.2 mg/dL (8.5-10.1); CARBON DIOXIDE 32.5 mmol/L (21-32); CREATININE 0.7 mg/dL (0.6-1.3); POTASSIUM 3.8 mmol/L (3.5-5.1); TOTAL BILIRUBIN 0.2 mg/dL (0.0-1.0); TOTAL PROTEIN, SERUM 8.4 g/dL (6.4-8.2)
[2023-08-06 03:05] LABS: LACTIC ACID 3.2 mmol/L (0.4-2.0)
[2023-08-06 06:00] VITALS: TEMP 97.9
[2023-08-06 06:12] LABS: APPEARANCE,URINE CLEAR (CLEAR); BILIRUBIN,URINE NEGATIVE (NEGATIVE); BLOOD, URINE 3+ (NEGATIVE); COLOR,URINE YELLOW (YELLOW); LEUKOCYTE ESTERASE ,URINE 3+ (NEGATIVE); NITRITE, URINE NEGATIVE (NEGATIVE); PROTEIN,URINE 2+ (NEGATIVE); UGLUCOSE NEGATIVE (NEGATIVE); UROBILINOGEN,URINE 0.2 EU/dL (0.2 - 1)
[2023-08-06 06:28] LABS: BACTERIA,URINE 4+ /HPF (None Seen); RBC,URINE 80-100 /HPF (0-5); SQUAMOUS EPITHELIAL CELL,UR 4-10 (MOD) /LPF (0-3 (FEW)); WBC,URINE 80-100 /HPF (0-5)
[2023-08-06 10:03] VITALS: BP 116/81; PULSE 71; RESP 17; O2SAT 98
== END 2023-08-06 09:39 | disposition short-term general hospital (02) ==
LOC: MED 01:50
DX: R06.02 Shortness of breath (principal); R09.02 Hypoxemia; E11.9 Type 2 diabetes mellitus without complications; F03.90 Unspecified dementia, unspecified severity, without behavioral disturbance, psychotic disturbance, mood disturbance, and anxiety; I10 Essential (primary) hypertension; E07.9 Disorder of thyroid, unspecified; Z79.899 Other long term (current) drug therapy; Z88.8 Allergy status to other drugs, medicaments and biological substances; Z20.822 Contact with and (suspected) exposure to COVID-19
CPT/HCPCS: 36415; 71045; 80053; 81001; 83605; 83880; 84484; 85025; 87040; 87086; 87426; 87804; 93005; 96365; 99284; J0696; Q0092

== ENCOUNTER 2023-08-31 08:58 | Emergency (ER) | payer MEDICARE, OTHER ==
[~2023-08-31] VITALS: Ht 167.6 cm; Wt 90.7 kg
[2023-08-31 09:33] VITALS: BP 132/52; PULSE 86; RESP 18; TEMP 97.6; O2SAT 98
[2023-08-31] MEDS ORDERED: WATER STERILE 0 ML MC ONE (11:02)
[2023-08-31 12:03] VITALS: O2SAT 98
== END 2023-08-31 16:41 ==
LOC: MED 08:58
DX: K94.23 Gastrostomy malfunction (principal); J44.9 Chronic obstructive pulmonary disease, unspecified; E11.9 Type 2 diabetes mellitus without complications; F03.90 Unspecified dementia, unspecified severity, without behavioral disturbance, psychotic disturbance, mood disturbance, and anxiety; I11.0 Hypertensive heart disease with heart failure; I50.9 Heart failure, unspecified; E03.9 Hypothyroidism, unspecified; Z86.69 Personal history of other diseases of the nervous system and sense organs; Z86.73 Personal history of transient ischemic attack (TIA), and cerebral infarction without residual deficits; Z98.890 Other specified postprocedural states; Z79.899 Other long term (current) drug therapy; Z88.6 Allergy status to analgesic agent
CPT/HCPCS: 43762; 99284